=== PATIENT | female | born 1975 | race Caucasian/White ===

== ENCOUNTER 2018-02-06 11:39 | Emergency (ER) | payer SELFPAY ==
[2018-02-06 12:30] LABS: Urine Blood 2+ (NEG); Urine Glucose NEGATIVE (NEG); Urine Protein 2+ (NEG)
[2018-02-06 12:43] LABS: Urine Bacteria >50 /HPF (<20); Urine Culture Reflex Order REFLEXED; Urine RBC <5 /HPF (NONE SEEN)
[2018-02-06] MEDS ORDERED: KETOROLAC 30 MG/ML INJ ONE (13:36)
[2018-02-06] MEDS ORDERED: NITROFURAN MACRO 100 MG CAP PO ONE (13:36)
--- NOTE | 2018-02-06 14:24 | ER ---
Nurse's Notes [facility] Name: Cady Connelly Age: 42 yrs Sex: Female : 1975 Arrival Date: 02/06/2018 Time: 11:43 Bed 26 Private MD: None, None Diagnosis: Urinary tract infection, site not specified Presentation: 02/06 12:01 Presenting complaint: Patient states: Chills, body aches and burning w/ urination since yesterday. Transition of care: patient was not received from another setting of care. Onset of symptoms was February 06, 2018. Risk Assessment: Do you want to hurt yourself or someone else? Patient reports no desire to harm self or others. Care prior to arrival: None. 12:01 Method Of Arrival: Ambulatory 12:01 Acuity: ALEXANDRA 4 13:13 Initial Sepsis Screen: Does the patient meet any 2 criteria? No. Patient's initial ed1 sepsis screen is negative. Does the patient have a suspected source of infection? No. Patient's initial sepsis screen is negative. Triage Assessment: 13:13 General: Appears uncomfortable, Behavior is calm, cooperative. Pain: Complains of pain ed1 in abdomen Pain currently is 6 out of 10 on a pain scale. Quality of pain is described as sharp. 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 - Social history:: Smoking status: unknown. - Ebola Screening: : Patient negative for fever greater than or equal to 101.5 degrees Fahrenheit, and additional compatible Ebola Virus Disease symptoms Patient denies exposure to infectious person Patient denies travel to an Ebola-affected area in the 21 days before illness onset No symptoms or risks identified at this time. Screenin:01 Abuse screen: Denies threats or abuse. Denies injuries from another. Nutritional ed1 screening: No deficits noted. Tuberculosis screening: No symptoms or risk factors identified. Fall Risk None identified. Assessment: 14:03 Reassessment: Patient appears in no apparent distress at this time. No changes from previously documented assessment. Patient and/or family updated on plan of care and expected duration. Pain level reassessed. Patient is alert, oriented x 3, equal unlabored respirations, skin warm/dry/pink. Patient states symptoms have not improved. Vital Signs: 12:02 BP 159 / 95; Pulse 100; Resp 22; Temp 99.0(O); Pulse Ox 99% on R/A; Weight 95.25 kg; ph Height 5 ft. 4 in. (162.56 cm); 14:03 BP 146 / 88; Pulse 98; Resp 18; Temp 100.4(O); Pulse Ox 97% on R/A; Pain 6/10; ph 12:02 Body Mass Index 36.05 (95.25 kg, 162.56 cm) ph ED Course: 11:43 Patient arrived in ED. sb2 11:44 None, None is Private Physician. sb2 12:02 Triage completed. ph 12:03 Arm band placed on Patient placed in waiting room, Patient notified of wait time. Urine ph obtained. 13:13 [facility] Moody [facility]-C [facility] kb 13:13 Joaquin Villafuerte MD is Attending Physician. kb 13:13 Patient has correct armband on for positive identification. Bed in low position. Call ed1 light in reach. Side rails up X 1. Pulse ox on. NIBP on. Door closed. Lights dimmed. 13:24 Vickie Ball LVN is Primary Nurse. ed1 13:30 Flu Sent. ed1 13:30 Urine Microscopic Only Sent. ed1 13:30 Urine Culture Sent. ed1 14:05 Urine --Ancillary (enter results) Sent. ph 14:05 Urine Dipstick--Ancillary (enter results) Sent. ph 14:52 No provider procedures requiring assistance completed. Patient did not have IV access ed1 during this emergency room visit. Administered Medications: 13:34 Drug: TORadol 60 mg Route: IM; Site: left gluteus; ed1 14:05 Follow up: Response: No adverse reaction; Pain is decreased ph 13:34 Drug: Macrobid 100 mg Route: PO; ed1 14:05 Follow up: Response: No adverse reaction ph 14:50 Drug: Tylenol 650 mg Route: PO; kr2 14:51 Follow up: Response: Medication administered at discharge. kr2 Outcome: 14:24 Discharge ordered by . kb 14:52 Discharged to home ambulatory. kr2 14:52 Condition: good 14:52 Discharge instructions given to patient, Instructed on discharge instructions, follow up and referral plans. medication usage, Demonstrated understanding of instructions, follow-up care, medications, Prescriptions given X 2. 14:53 Patient left the ED. kr2 Addendum: 02/09/2018 08:34 Addendum: Culture Results: Positive urine culture. No further action required. Bacteria i w sensitive to prescribed antibiotic. Signatures: Madiha Moody, CARPENTER [employer]LE [employer]LLY-C [employer]PENTER [employer]LLY-Ckb Shanon Mcdowell, RN RN Vickie Ball LVN CUT OFF MACHINE HELPER ed1 Grecia Mcintosh RN RN Nimisha Irving RN RN kr2 Suzie Newell sb2
--- NOTE | 2018-02-06 14:24 | EDPHYS ---
Physician Documentation [facility] Name: Cady Connelly Age: 42 yrs Sex: Female : 1975 Arrival Date: 02/06/2018 Time: 11:43 Bed 26 Private MD: None, None ED Physician Joaquin Villafuerte HPI: 02/06 13:35 This 42 yrs old Female presents to ER via Ambulatory with complaints of Flu kb Symptoms, Urinary Problem. 13:35 The patient presents with urinary symptoms, dysuria, frequency. Onset: The kb symptoms/episode began/occurred yesterday. Modifying factors: The symptoms are alleviated by nothing, the symptoms are aggravated by nothing. Associated signs and symptoms: Pertinent positives: dysuria, urinary frequency, chills, bodyaches. Severity of symptoms: At their worst the symptoms were moderate, in the emergency department the symptoms are unchanged. The patient has experienced similar episodes in the past, a few times. The patient has not recently seen a physician. 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 - Social history:: Smoking status: unknown. - Ebola Screening: : Patient negative for fever greater than or equal to 101.5 degrees Fahrenheit, and additional compatible Ebola Virus Disease symptoms Patient denies exposure to infectious person Patient denies travel to an Ebola-affected area in the 21 days before illness onset No symptoms or risks identified at this time. ROS: 13:33 ENT: Negative for injury, pain, and discharge, Neck: Negative for injury, pain, and kb swelling, Cardiovascular: Negative for chest pain, palpitations, and edema, Respiratory: Negative for shortness of breath, cough, wheezing, and pleuritic chest pain, Abdomen/GI: Negative for abdominal pain, nausea, vomiting, diarrhea, and constipation, MS/Extremity: Negative for injury and deformity, Skin: Negative for injury, rash, and discoloration, Neuro: Negative for headache, weakness, numbness, tingling, and seizure. 13:33 Constitutional: Positive for body aches, chills, fatigue, malaise, Negative for fever, poor PO intake, weight loss. 13:33 : Positive for urinary symptoms, urinary frequency, burning with urination. Exam: 13:32 Head/Face: Normocephalic, atraumatic. ENT: Nares patent. No nasal discharge, no kb septal abnormalities noted. Tympanic membranes are normal and external auditory canals are clear. Oropharynx with no redness, swelling, or masses, exudates, or evidence of obstruction, uvula midline. Mucous membranes moist. Neck: Trachea midline, no thyromegaly or masses palpated, and no cervical lymphadenopathy. Supple, full range of motion without nuchal rigidity, or vertebral point tenderness. No Meningismus. Chest/axilla: Normal chest wall appearance and motion. Nontender with no deformity. No lesions are appreciated. Cardiovascular: Regular rate and rhythm with a normal S1 and S2. No gallops, murmurs, or rubs. Normal PMI, no JVD. No pulse deficits. Respiratory: Lungs have equal breath sounds bilaterally, clear to auscultation and percussion. No rales, rhonchi or wheezes noted. No increased work of breathing, no retractions or nasal flaring. Abdomen/GI: Soft, non-tender, with normal bowel sounds. No distension or tympany. No guarding or rebound. No evidence of tenderness throughout. Skin: Warm, dry with normal turgor. Normal color with no rashes, no lesions, and no evidence of cellulitis. MS/ Extremity: Pulses equal, no cyanosis. Neurovascular intact. Full, normal range of motion. Neuro: Awake and alert, GCS 15, oriented to person, place, time, and situation. Cranial nerves II-XII grossly intact. Motor strength 5/5 in all extremities. Sensory grossly intact. Cerebellar exam normal. Normal gait. 13:32 Constitutional: The patient appears alert, awake, uncomfortable. Vital Signs: 12:02 BP 159 / 95; Pulse 100; Resp 22; Temp 99.0(O); Pulse Ox 99% on R/A; Weight 95.25 kg; ph Height 5 ft. 4 in. (162.56 cm); 14:03 BP 146 / 88; Pulse 98; Resp 18; Temp 100.4(O); Pulse Ox 97% on R/A; Pain 6/10; ph 12:02 Body Mass Index 36.05 (95.25 kg, 162.56 cm) ph MDM: 13:14 Patient medically screened. kb 13:32 Data reviewed: vital signs, nurses notes. Data interpreted: Pulse oximetry: on room air kb is 99 %. Interpretation: normal. 13:35 Counseling: I had a detailed discussion with the patient and/or guardian regarding: the kb historical points, exam findings, and any diagnostic results supporting the discharge/admit diagnosis, lab results, the need for outpatient follow up, a family practitioner, to return to the emergency department if symptoms worsen or persist or if there are any questions or concerns that arise at home. 02/06 11:51 Order name: Flu ph 02/06 12:12 Order name: Urine Culture [facility] 02/06 12:12 Order name: Urine Microscopic Only [facility] 02/06 12:13 Order name: Urine Dipstick--Ancillary (enter results) [facility] 02/06 12:13 Order name: Urine --Ancillary (enter results) [facility] 02/06 12:30 Order name: Urine --Ancillary; Complete Time: 13:14 [facility] 02/06 12:07 Order name: Urine Dipstick-Ancillary (obtain specimen); Complete Time: 12:12 kb 02/06 12:12 Order name: Urine Test (obtain specimen); Complete Time: 12:12 [facility] 02/06 12:30 Order name: Urine Dipstick-Ancillary; Complete Time: 13:14 [facility] 02/06 12:44 Order name: Urine Microscopic Only; Complete Time: 13:14 [facility] 02/06 12:45 Order name: Influenza Screen (A ; Complete Time: 13:14 [facility] 02/06 12:12 Order name: Urine Dipstick-Ancillary (obtain specimen); Complete Time: 12:12 [facility] 02/06 13:37 Order name: Vital Signs; Complete Time: 14:05 kb Administered Medications: 13:34 Drug: TORadol 60 mg Route: IM; Site: left gluteus; ed1 14:05 Follow up: Response: No adverse reaction; Pain is decreased ph 13:34 Drug: Macrobid 100 mg Route: PO; ed1 14:05 Follow up: Response: No adverse reaction ph 14:50 Drug: Tylenol 650 mg Route: PO; kr2 14:51 Follow up: Response: Medication administered at discharge. kr2 Disposition: 02/06/18 14:24 Discharged to Home. Impression: Urinary tract infection, site not specified. - Condition is Stable. - Discharge Instructions: Urinary Tract Infection, Adult, [id number]. - Prescriptions for Pyridium 200 mg Oral Tablet - take 1 tablet by ORAL route every 8 hours for 3 days; 9 tablet. Macrobid 100 mg Oral Capsule - take 1 capsule by ORAL route every 12 hours for 10 days; 20 capsule. - Medication Reconciliation Form, Thank You Letter, Antibiotic Education, Prescription Opioid Use form. - Follow up: Emergency Department; When: As needed; Reason: Worsening of condition. Follow up: Private Physician; When: 2 - 3 days; Reason: Recheck today's complaints, Continuance of care, Re-evaluation by your physician. Addendum: 02/08/2018 09:09 Co-signature as Attending Physician, Joaquin Villafuerte MD I agree with the assessment and k dr plan of care. Signatures: Dispatcher [employer] EDMS Madiha Moody, LEAD CAREGIVER-C LEAD CAREGIVER-Ckb Bella Grady, RN RN aj1 Joaquin Villafuerte MD MD [facility] Vickie Ball LVN PAYMENT POSTER ed1 Grecia Mcintosh RN RN Nimisha Irving RN RN kr2 Corrections: (The following items were deleted from the chart) 02/06 14:53 14:24 02/06/2018 14:24 Discharged to Home. Impression: Urinary tract infection, site kr2 not specified. Condition is Stable. Forms are Medication Reconciliation Form, Thank You Letter, Antibiotic Education, Prescription Opioid Use. Follow up: Emergency Department; When: As needed; Reason: Worsening of condition. Follow up: Private Physician; When: 2 - 3 days; Reason: Recheck today's complaints, Continuance of care, Re-evaluation by your physician. kb
[2018-02-06] MEDS ORDERED: ACETAMINOPHEN 325 MG TABLET ONE (14:54)
[2018-02-06 15:01] VITALS: BP 146/88; TEMP 100.4; O2SAT 97
== END 2018-02-06 14:53 | disposition home or self-care (01) ==
LOC: ER 11:39
DX: N39.0 Urinary tract infection, site not specified (principal); I10 Essential (primary) hypertension
CPT/HCPCS: 81003; 81015; 81025; 87077; 87086; 87088; 87186; 87804; 96372; 99284

== ENCOUNTER 2022-05-25 13:45 | Emergency (ER) | payer SELFPAY ==
--- OUTSIDE RECORDS SUMMARY | 2022-05-25 13:48 | XMS REPORT | Continuity of Care Document ---
:1975 Author Organization [facility] t Address [address] [facility] [address] [place] [address] Care Team Providers Name Role Phone Pcp, Patient Does Not Have A Primary Care Physician [id number] NEO BLAND Attending Clinician Unavailable Neo Bland DO Attending Clinician Doctor Unassigned, [place] Attending Clinician Unavailable Problems Condition Condition Condition Status Onset Resolution Last Treating Co mments Source Name Details Category Date Date Treatment Clinician Date Pyelonephr Pyelonephr Disease Active 2017-03 U nivers itis itis 2-18 ity of 00:00: [address] Obesity Obesity Disease Active 2017-03 Univers (BMI (BMI 2-18 ity of 30-39.9) 30-39.9) 00:00: [address] Sepsis Sepsis Disease Active 2017-03 Univers 2-18 ity of 00:00: [address] Kidney Kidney Disease Active 2014-03 Univers stone stone 1-24 ity of 00:00: [address] Allergies, Adverse Reactions, Alerts Allergy Allergy Status Severity Reaction(s) Onset Inactive Treating Comm ents Source Name Type Date Date Clinician HONEYDEW DRUG Active Low Swelling 2017-03 Univer s INGREDI 2-19 ity of 00:00: [place] 00 [facility] RASPBERR DRUG Active Low Swelling 2017-03 Univer s Y INGREDI 2-19 ity of 00:00: [address] Honeydew Propensi Active Swelling 2017-03 Univ ers ty to 2-19 ity of adverse 00:00: [place] reaction 00 Medical s Branch Raspberr Propensi Active Swelling 2017-03 Univ ers y ty to 2-19 ity of adverse 00:00: [place] reaction 00 Medical s Branch Social History Social Habit Start Date Stop Date Quantity Comments Source History of Cigarette Smoker Universi ty of tobacco use [facility] Exposure to Not sure University of SARS-CoV-2 [place] [facility] (event) Branch Alcohol intake 2021-01-24 2021-01-24 Current University 00:00:00 00:00:00 non-drinker of [place] Medi johanny alcohol (finding) [place] Tobacco Comment 2018-02-24 2018-02-24 [id number] Universit y of 00:00:00 00:00:00 [facility] Sex Assigned At [birth year] Universit y of 00:00:00 00:00:00 [facility] Smoking Status Start Date Stop Date Source Current every day smoker Univers ity of [facility] Medications Ordered Filled Start Stop Current Ordering Indication Dosage Frequency Signature Comments Components Source Medication Medication Date Date Medication? Clinician (SIG) Name Name metoclopram 2020-03- No 10mg 10 mg, Uni vers guillermo HCl -01-24 Slow IV ity of (REGLAN) 15:00: 14:12 Push, [place] injection 00 :00 ONCE, 1 Medical 10 mg dose, On Branch 01/24/21 at 0900, XENA ondansetron 2020-03 No 4mg 4 mg, Slow Univers (ZOFRAN 03-26 IV Push, ity of (PF)) 15:00: 14:11 ONCE, 1 [place] injection 4 00 :00 dose, On Medi johanny mg Fri01/24/21 at 0900, XENA metoclopram 2020-03 Yes [id number] 10mg Take 1 Univers guillermo HCl 10 -17 tablet by ity of mg tablet 00:00: mouth [place] 00 every 6 Medical (six) Branch hours as needed for Nausea and Vomiting (N/V) (headache) . permethrin 2019-03 Yes [id number] Apply U nivers 5 % cream 1-15 cream from ity of 00:00: head to [place] 00 toe, Medical including Branch soles of feet. Leave on for 12 hours, then rinse hydrOXYzine 2019-03 Yes [id number] 50mg Take 1 Univers (VISTARIL) 1-15 capsule by ity of 50 mg 00:00: mouth 3 [place] capsule 00 (three) Medical times Branch daily as needed for Itching. permethrin 2019-03 Yes [id number] Apply U nivers 5 % cream 1-15 cream from ity of 00:00: head to [place] 00 toe, Medical including Branch soles of feet. Leave on for 12 hours, then rinse hydrOXYzine 2019-03 Yes [id number] 50mg Take 1 Univers (VISTARIL) 1-15 capsule by ity of 50 mg 00:00: mouth 3 [place] capsule 00 (three) Medical times Branch daily as needed for Itching. lisinopril 2017-03 Yes 10mg Take 10 mg U nivers 10 mg 2-20 by mouth ity of tablet 14:31: daily. [address] lisinopril 2017-03 Yes 10mg Take 10 mg U nivers 10 mg 2-20 by mouth ity of tablet 14:31: daily. [address] ciprofloxac 2017-03 Yes 500mg Take 1 Uni vers in HCl 500 2-20 tablet by ity of mg tablet 00:00: mouth [place] 00 every 12 Medical (twelve) Branch hours. ciprofloxac 2017-03 Yes 500mg Take 1 Uni vers in HCl 500 2-20 tablet by ity of mg tablet 00:00: mouth [place] 00 every 12 Medical (twelve) Branch hours. acetaminoph 2014-03 Yes 1{tbl} Take 1-2 Univers en-codeine 1-25 Tabs by ity of (TYLENOL 00:00: mouth [place] #3) 300-30 00 every 6 Medica l mg tablet (six) Branch hours as needed for Pain (scale 1-3), Pain (scale 4-6) or Pain (scale 7-10). acetaminoph 2014-03 Yes 1{tbl} Take 1-2 Univers en-codeine 1-25 Tabs by ity of (TYLENOL 00:00: mouth [place] #3) 300-30 00 every 6 Medica l mg tablet (six) Branch hours as needed for Pain (scale 1-3), Pain (scale 4-6) or Pain (scale 7-10). Vital Signs Vital Name Observation Time Observation Value Comments Source Systolic blood 2021-01-24 15:00:00 166 mm[Hg] Univer sity of pressure [facility] Diastolic blood 2021-01-24 15:00:00 98 mm[Hg[facility] Heart rate 2021-01-24 15:00:00 87 /min [facility] Respiratory rate 2021-01-24 15:00:00 20 /min [facility] Oxygen saturation in 2021-01-24 15:00:00 96 /min [facility] Arterial blood by [facility] Pulse oximetry Branch Body temperature 2021-01-24 13:52:00 36.78 [place] [facility] Body weight 2021-01-24 13:52:00 108.863 kg [facility] BMI 2021-01-24 13:52:00 41.20 kg/m2 [facility] Procedures Procedure Date / Time Performed Performing Clinician Sour e COMP. METABOLIC PANEL 2021-01-24 14:02:00 [facility] ([id number] CBC WITH DIFF 2021-01-24 14:02:00 [place] [facility] URINALYSIS 2021-01-24 14:02:00 [place] [facility] o [facility] RAPID INFLUENZA A/B 2021-01-24 14:02:00 Neo Bland [facility] COVID-19 (ID NOW RAPID 2021-01-24 14:02:00 Neo Bland [facility] TESTING) [facility] NOTICE OF PRIVACY 2021-01-24 13:45:00 Doctor Unassigned, No [facility] PRACTICES Name [facility] CONSENT/REFUSAL FOR 2021-01-24 13:44:43 Doctor Unassigned, No [facility] AND Name [facility] TREATMENT Encounters Start End Encounter Admission Attending Care Care Encounter Source Date/Time Date/Time Type Type Clinicians Facility Department ID 2022-05-11 2022-05-11 Outpatient [facility] RAFAELA [id number] Db 09:28:57 09:28:57 [id number] Tammy Panchito 2022-05-09 2022-05-09 Outpatient RAFAELA [facility] [id number] Db 16:52:49 16:52:49 0302 Panchito 2022-02-07 2022-02-07 Outpatient SFA SFA [id number] Db 15:35:53 15:35:53 1201 F Panchito 2021-01-24 2021-01-24 Emergency X [facility] ERT [id number] Univers 07:53:00 09:32:00 NEO itjo of [facility] 2021-01-24 2021-01-24 Emergency [facility] [id number] Univers 07:53:00 09:32:00 Neo MILLIGAN [id number] i ty of [place] [id number] [place] [id number] [facility] 084 Branch 2021-01-24 2021-01-24 Orders Doctor SKYLER [id number] Univers 00:00:00 00:00:00 Only Unassigned, ANDREAS [id number] ity of [place] [facility] [id number] Remi [id number] [facility] 009 Branch 2020-01-23 2020-01-23 Emergency X [facility] ERT [id number] Univers 20:00:00 20:00:00 [facility] Results Test Description Test Time Test Comments Results Result Comments Source LIPID PANEL 2022-05-13 00:13:10 Test Item Value Reference Range Interpretation Comme nts CHOLESTEROL (test code = 2210) 170 MG/DL <200 TRIGLYCERIDES (test code = 2232) 342 MG/DL <150 H HDL CHOLESTEROL (test code = 37 MG/DL >39 L 2220) CALC LDL CHOL (test code = 2237) 87 MG/DL <100 NOTE: CALCULATED LDL IS BASED ON ESVERO-CUEVAS METHOD WHICHINCLUDES A DJUSTABLE TRIGLYCERIDE:VL DL CHOLESTEROL RATIO.THIS FACT OR VARIES BY MEASURED TRIGLY CERIDE AND NON-HDLCHOLESTE ROL CONCENTRATIONS WITH INCREASED CALCULATED LDL SEENIN HIGHER T RIGLYCERIDE OR LOWER NON-HDL S PECIMENS. FOR MOREINFORMATION , SEE CLIENT ANNOUNCEMENT AT [email or web address] LDL/HDL (test code = 2.35 RATIO <3.22 2238) COMPREHENSIVE METABOLIC [id number] 00:13:10 Test Item Value Reference Range Interpretation Comments GLUCOSE (test code = 107 MG/DL 70-99 H 2216) BUN (test code = 17 MG/DL 6-20 2207) CREATININE (test 1.26 MG/DL 0.60-1.30 code = 2214) eGFR (2020 CKD-EPI) 53 >60 L The NKF -ASN (test code = 48971) ML/MIN/1.73 Taskforc e recommends use of Cystatin C to confirm eGFR in adults at risk for CKD . [facility] offers eGFR wit h Cystatin C-Creatinineusi ng the 2020 CKD-EPI eGFR_creat-cyst at equation (order code 3057) toincrejack e the accuracy of est imated GFR. For more information, contactyour acc ount executive or se e announcement [email or web address] CALC BUN/CREAT (test 13 RATIO 6-28 code = 2235) SODIUM (test code = 142 MEQ/L 516-101 7922) POTASSIUM (test code 4.7 MEQ/L 3.5-5.4 = 2227) CHLORIDE (test code 103 MEQ/L 95-107 = 221) CARBON DIOXIDE (test 25 MEQ/L 19-31 code = 2206) CALCIUM (test code = 9.9 MG/DL 8.5-10.5 2208) PROTEIN, TOTAL (test 6.6 G/DL 6.1-8.3 code = 2229) ALBUMIN (test code = 4.2 G/DL 3.5-5.2 2200) CALC GLOBULIN (test 2.4 G/DL 1.9-3.7 code = 2240) CALC A/G RATIO (test 1.8 RATIO 1.0-2.6 code = 2234) BILIRUBIN, TOTAL <0.2 MG/DL See_Comment [Automated message] (test code = 2207) The [employer] which generated this result transmitted ref erence range: <=1.2. T he reference range was not used to int erpret this result as normal/abnormal . ALKALINE PHOSPHATASE 96 U/L 40-120 (test code = 2204) AST (test code = 20 U/L 9-40 2217) ALT (test code = 20 U/L 5-40 CPL pfeiffer s 2218) important patho logy staff changes effective 05/08. New patholo gy staff will prov guillermo uninterrupted, excellent patie nt care and clinic al consultation. S ee URL: [email or web address] UNLE SS OTHERWISE INDIC ATED, ALL TESTING PER FORMED AT [facility] [employer], [facility]. [address] [place] [address] [facility] DIRECTOR: PIO BURDICK M.D. CLIA NUMBER [id number] CAP ACCREDITATION N O. [id number] HEMOGLOBIN [id number] 04:30:51 Test Item Value Reference Range Interpretation Comments HEMOGLOBIN A1c (test 6.2 % 4.2-5.6 H AMERIC AN DIABETES code = 60265) ASSOCIATION IDELINES FOR HGB A1C: PREDIABETES/INC REASED RISK . . . . . . . 5.7 -6.4% DIAGNOSIS OF DI ABETES . . . . . . . . . >=6 .5% WITH CONFIRMATION OR APPROPRIATE SYMPTOMS NOTE: ASSAY MAY BE AFFECTED BY HEMOGLOBINOPATH IES (SICKLE CELL ANEMIA, S- C DISEASE, OTHERS) OR AMALIA FICIALLY LOWERED BY DECR EASED RED CELL SURVIVAL ( HEMOLYTIC ANEMIAS, BLOOD LOSS, ETC.). CONSIDER ALTERN ATE TESTING OR LABORATORY C ONSULTATION. VAGINAL PATHOGENS DNA [id number] 14:33:43 Test Item Value Reference Range Interpretation Comments REINA SPECIES (test NEGATIVE NEGATIVE code = ) G. VAGINALIS (test POSITIVE NEGATIVE A code = ) T. VAGINALIS (test NEGATIVE NEGATIVE UNLESS O THERWISE code = ) INDICATED, ALL TESTING PERFORMED [facility] [address] [place], [place] [address] LABORATORY DIRE CTOR: PIO BOB M.D. CLIA NUMBER [id number] [place]. [id number] COMPREHENSIVE METABOLIC [id number] 05:48:51 Test Item Value Reference Range Interpretation Comments GLUCOSE (test code = 139 MG/DL 70-99 H 2216) BUN (test code = 17 MG/DL 6-20 2207) CREATININE (test 1.09 MG/DL 0.60-1.30 code = 2214) eGFR (2020 CKD-EPI) 63 >60 (test code = 45181) ML/MIN/1.73 CALC BUN/CREAT (test 16 RATIO 6-28 code = 2235) SODIUM (test code = 140 MEQ/L 361-875 0788) POTASSIUM (test code 4.2 MEQ/L 3.5-5.4 = 2228) CHLORIDE (test code 104 MEQ/L 95-107 = 2215) CARBON DIOXIDE (test 24 MEQ/L 19-31 code = 2206) CALCIUM (test code = 9.6 MG/DL 8.5-10.5 2208) PROTEIN, TOTAL (test 7.2 G/DL 6.1-8.3 code = 222) ALBUMIN (test code = 4.4 G/DL 3.5-5.2 2200) CALC GLOBULIN (test 2.8 G/DL 1.9-3.7 code = 2240) CALC A/G RATIO (test 1.6 RATIO 1.0-2.6 code = 2234) BILIRUBIN, TOTAL <0.2 MG/DL See_Comment [Automated message] (test code = 220) The [employer] which generated this result transmitted ref erence range: <=1.2. T he reference range was not used to int erpret this result as normal/abnormal . ALKALINE PHOSPHATASE 112 U/L 40-118 (test code = 220) AST (test code = 19 U/L 9-40 2217) ALT (test code = 23 U/L 5-40 UNLESS OTH ERWISE 2218) INDICATED, ALL TESTING PERFORM ED ATCLINICAL PATH OLOGY LABORATORIES, [facility]. [address] [place], [place] [id number] [place] [address] DIRECTOR: PIO BURDICK M.D. CLIA NUMBER [id number] CAP ACCREDITATION N O. [id number] LIPID [id number] 05:48:51 Test Item Value Reference Range Interpretation Comments CHOLESTEROL (test 298 MG/DL <200 H code = 2210) TRIGLYCERIDES (test 541 MG/DL <150 H code = 2232) HDL CHOLESTEROL 36 MG/DL >39 L (test code = 2220) CALC LDL CHOL (test (NOTE) MG/DL <100 UNABLE T O CALCULATE A code = 2237) VALID LDL RYLIE STEROL WHEN THE TRIGLYCERIDEVAL UE IS GREATER THAN 40 0 MG/DL.UNABLE TO CALCULATE A ALEK ID LDL CHOLESTEROL WHE N THE TRIGLYCERIDEVAL UE IS GREATER THAN 40 0 MG/DL. NOTE: CALCULATE D LDL IS BASED ON SEVERO -CUEVAS METHOD WHICHINC LUDES ADJUSTABLE TRIGLYCERIDE:VL DL CHOLESTEROL RAT IO.THIS FACTOR VARIES B Y MEASURED TRIGLY CERIDE AND NON-HDLCHOL ESTEROL CONCENTRATIONS WITH INCREASED CALCU LATED LDL SEENIN HIGH ER TRIGLYCERIDE OR LOWER NON-HDL SPECIME NS. FOR MOREINFORMATION , SEE CLIENT ANNOUNCE MENT AT [email or web address] RISK RATIO LDL/HDL (NOTE) RATIO <3.22 UNABLE T O CALCULATE (test code = 2238) HEMOGLOBIN [id number] 03:38:25 Test Item Value Reference Range Interpretation Comments HEMOGLOBIN A1c (test 6.5 % 4.2-5.6 H AMERIC AN DIABETES code = 77518) ASSOCIATION IDELINES FOR HGB A1C: PREDIABETES/INC REASED RISK . . . . . . . 5.7 -6.4% DIAGNOSIS OF DI ABETES . . . . . . . . . >=6 .5% WITH CONFIRMATION OR APPROPRIATE SYMPTOMS NOTE: ASSAY MAY BE AFFECTED BY HEMOGLOBINOPATH IES (SICKLE CELL ANEMIA, S- C DISEASE, OTHERS) OR AMALIA FICIALLY LOWERED BY DECR EASED RED CELL SURVIVAL ( HEMOLYTIC ANEMIAS, BLOOD LOSS, ETC.). CONSIDER ALTERN ATE TESTING OR LABORATORY C ONSULTATION. TSH, THIRD [id number] 06:59:53 Test Item Value Reference Range Interpretation Comments TSH, THIRD 0.728 UIU/ML 0.400-4.100 UNLESS OTHERWI SE GENERATION (test INDICATED, ALL TESTING code = 2821) PERFORMED [facility], [id number] [place] [address] DIRECTOR: PIO BURDICK M.D. CLIA NUMBER [id number] CAP ACCREDITATION N O. [id number] LIPID [id number] 05:57:50 Test Item Value Reference Range Interpretation Comments CHOLESTEROL (test 265 MG/DL <200 H code = 2210) TRIGLYCERIDES (test 386 MG/DL <150 H code = 2232) HDL CHOLESTEROL (test 50 MG/DL >39 code = 2220) CALC LDL CHOL (test 156 MG/DL <100 H NOTE: C ALCULATED LDL code = 2237) IS BASED ON SEVERO-CUEVAS METHOD WHICHINCLUDES ADJUSTABLE TRIGLYCERIDE:VL DL CHOLESTEROL RAT IO.THIS FACTOR VARIES B Y MEASURED TRIGLY CERIDE AND NON-HDLCHOL ESTEROL CONCENTRATIONS WITH INCREASED CALCU LATED LDL SEENIN HIGH ER TRIGLYCERIDE OR LOWER NON-HDL SPECIME NS. FOR MOREINFORMATION , SEE CLIENT ANNOUNCE MENT AT [email or web address] [email or web address] RATIO LDL/HDL 3.12 RATIO <3.22 (test code = 2238) COMPREHENSIVE METABOLIC [id number] 05:57:50 Test Item Value Reference Range Interpretation Comments GLUCOSE (test code = 85 MG/DL 70-99 2216) BUN (test code = 15 MG/DL 6-20 2207) CREATININE (test 0.92 MG/DL 0.60-1.30 code = 2214) eGFR (2020 CKD-EPI) 78 ML/MIN/1.73 >60 (test code = 92666) CALC BUN/CREAT (test 16 RATIO 6-28 code = 2235) SODIUM (test code = 142 MEQ/L 073-072 2891) POTASSIUM (test code 4.7 MEQ/L 3.5-5.4 = 2227) CHLORIDE (test code 103 MEQ/L 95-107 = 2215) CARBON DIOXIDE (test 26 MEQ/L 19-31 code = 2206) CALCIUM (test code = 9.7 MG/DL 8.5-10.5 2208) PROTEIN, TOTAL (test 7.3 G/DL 6.1-8.3 code = 2229) ALBUMIN (test code = 4.3 G/DL 3.5-5.2 2200) CALC GLOBULIN (test 3.0 G/DL 1.9-3.7 code = 2240) CALC A/G RATIO (test 1.4 RATIO 1.0-2.6 code = 2234) BILIRUBIN, TOTAL 0.2 MG/DL See_Comment [Automated message] (test code = 2207) The syste m which generated this result transmit patsy reference range : <=1.2. The refe rence range was not u sed to interpret th is result as normal/abnormal . ALKALINE PHOSPHATASE 119 U/L 40-118 H (test code = 2204) AST (test code = 17 U/L 9-40 2217) ALT (test code = 21 U/L 5-40 2218) HEMOGLOBIN [id number] 05:42:46 Test Item Value Reference Range Interpretation Comments HEMOGLOBIN A1c (test code = 78770) 6.4 % 4.2-5.6 H CBC W/AUTO DIFF WITH [id number] 04:28:23 Test Item Value Reference Range Interpretation Comments WBC (test code = 9.8 K/UL 3.5-11.0 1001) RBC (test code = 4.54 M/UL 3.80-5.40 1002) HEMOGLOBIN (test code 14.4 G/DL 11.5-15.5 = 1003) HEMATOCRIT (test code 41.4 % 34.0-45.0 = 1004) MCV (test code = 91.2 fL 80.0-99.0 1005) MCH (test code = 31.7 PG 25.0-33.0 1006) MCHC (test code = 34.8 G/DL 31.0-36.0 1007) RDW (test code = 13.7 % 11.5-15.0 1038) NEUTROPHILS (test 60.3 % code = 1008) LYMPHOCYTES (test 28.8 % code = 1010) MONOCYTES (test code 7.2 % = 1011) EOSINOPHILS (test 2.9 % code = 1012) BASOPHILS (test code 0.6 % = 1013) IMMATURE GRANYLOCYTES 0.2 % (test code = 1036) NUCLEATED RBCS (test 0.0 /100 WBC'S See_Comment [Aut omated code = 1065) message] The sy stem which generated this result transmitted reference range : 0.0. The refere nce range was not u sed to interpret th is result as normal/abnormal . PLATELET COUNT (test 324 K/UL 130-400 code = 1015) ABSOLUTE NEUTROPHILS 5.90 K/UL 1.50-7.50 (test code = 1066) ABSOLUTE LYMPHOCYTES 2.82 K/UL 1.00-4.00 (test code = 1067) ABSOLUTE MONOCYTES 0.70 K/UL 0.20-1.00 (test code = 1068) ABSOLUTE EOSINOPHILS 0.28 K/UL 0.00-0.50 (test code = 1040) ABSOLUTE BASOPHILS 0.06 K/UL 0.00-0.20 (test code = 1069) ABS IMMATURE 0.02 K/UL 0.00-0.10 GRANULOCYTES (test code = 1020) ABS NUCLEATED RBCS 0.00 K/UL 0.00-0.11 (test code = 20689) COMP. METABOLIC PANEL (59419)2021-01-24 14:36:50 Test Item Value Reference Range Interpretation Comments NA (test code = 138 mmol/L 135-145 2579707148) K (test code = 4.1 mmol/L 3.5-5.0 4257880251) CL (test code = 104 mmol/L 98-108 9688451793) CO2 TOTAL (test code = 26 mmol/L 23-31 8513088214) AGAP (test code = 2-16 6347469339) BUN (test code = 16 mg/dL 7-23 4270830240) GLUCOSE (test code = 115 mg/dL 70-110 H 5931124096) CREATININE (test code = 0.87 mg/dL 0.50-1.04 3151523622) TOTAL BILI (test code = 0.4 mg/dL 0.1-1.2 7861582338) CALCIUM (test code = 9.9 mg/dL 8.6-10.6 7009092615) T PROTEIN (test code = 7.0 g/dL 6.3-8.2 2327159704) ALBUMIN (test code = 4.2 g/dL 3.5-5.0 7191088586) ALK PHOS (test code = 110 U/L 34-122 7790608130) ALTv (test code = 26 U/L 5-35 1742-6) AST(SGOT) (test code = 32 U/L 13-40 4868831113) eGFR (test code = mL/min/1.73m2 9633577339) JAMAL (test code = JAMAL) Association of Glomerular Filtration Rate (GFR) and Staging of Kidney Disease* + --+ --+ ------+| GFR (mL/min/1.73 m2) ?| With Kidney Damage ?| ?Without Kidney Damage+ --------+ --------+ +| ?>90 ?| ?Stage one ?| ? Normal ?+ ---+ ---+ -------+| ?60-89 ?| ?Stage two ?| ? Decreased GFR ? + --+ --+ ------+| ?30-59 ?| ?Stage three ?| ? Stage three ? + --+ --+ ------+| ?15-29 ?| ?Stage four ? | ? Stage four ?+ ---+ ---+ -------+| ?<15 (or dialysis) ? ?| ?Stage five ? | ? Stage five ?+ ---+ ---+ -------+ *Each stage assumes the associated GFR level has been in effect for at least three months. ?Stages 1 to 5, with or without kidney disease, indicate chronic kidney disease. Notes: Determination of stages one and two (with eGFR >59mL/min/1.73 m2) requires estimation of kidney damage for at least three months as defined by structural or functional abnormalities of the kidney, manifested by either:Pathological abnormalities or Markers of kidney damage (including abnormalities in the composition of the blood or urine or abnormalities in imaging tests). Lab Interpretation Abnormal (test code = 59251-7) [facility] WITH [id number] 14:26:50 Test Item Value Reference Range Interpretation Comments WBC (test code = See_Comment [Automated 8390-2) message] The sy stem which generated this result transmitted reference range : 4.30 - 11.10 10*3/?L. The reference range was not used to interpret this result as normal/abnormal . RBC (test code = See_Comment [Automated 169-8) message] The sy stem which generated this result transmitted reference range : 3.93 - 5.25 10*6/?L. The reference range was not used to interpret this result as normal/abnormal . HGB (test code = 13.5 g/dL 11.6-15.0 718-7) HCT (test code = 39.6 % 35.7-45.2 4544-3) MCV (test code = 92.5 fL 80.6-95.5 787-2) MCH (test code = 31.5 pg 25.9-32.8 785-6) MCHC (test code = 34.1 g/dL 31.6-35.1 786-4) RDW-SD (test code = 42.4 fL 39.0-49.9 48984-7) RDW-CV (test code = 12.4 % 12.0-15.5 788-0) PLT (test code = See_Comment [Automated 777-3) message] The sy stem which generated this result transmitted reference range : 166 - 358 10*3/ ?L. The reference r vick was not used to interpret this result as normal/abnormal . MPV (test code = 11.5 fL 9.5-12.9 76804-6) NRBC/100 WBC (test See_Comment [Automat ed code = 9382269226) message] The system which generated this result transmitted reference range : 0.0 - 10.0 /100 WBCs. The refer ence range was not u sed to interpret th is result as normal/abnormal . NRBC x10^3 (test code <0.01 See_Comment [Auto mated = 9632053551) message] The s ystem which generated this result transmitted reference range : 10*3/?L. The reference range was not used to interpret this result as normal/abnormal . GRAN MAT (NEUT) % 54.3 % (test code = 770-8) IMM GRAN % (test code 0.40 % = 0025308019) LYMPH % (test code = 34.6 % 736-9) MONO % (test code = 6.6 % 5905-5) EOS % (test code = 3.4 % 713-8) BASO % (test code = 0.7 % 706-2) GRAN MAT x10^3(ANC) 5.76 10*3/uL 1.88-7.09 (test code = 2396701671) IMM GRAN x10^3 (test 0.04 10*3/uL 0.00-0.06 code = 6657415460) LYMPH x10^3 (test code 3.66 10*3/uL 1.32-3.29 H = 731-0) MONO x10^3 (test code 0.70 10*3/uL 0.33-0.92 = 742-7) EOS x10^3 (test code = 0.36 10*3/uL 0.03-0.39 711-2) BASO x10^3 (test code 0.07 10*3/uL 0.01-0.07 = 704-7) Lab Interpretation Abnormal (test code = 79030-0) [facility]"
[2022-05-25] MEDS ORDERED: IBUPROFEN 200 MG TAB PO ONE (14:30)
--- NOTE | 2022-05-25 14:40 | RAD REPORT ---
EXAM DESCRIPTION: CT - Head Brain Wo Cont - 05/25/2022 2:30 pm CLINICAL HISTORY: Head injury. Headache COMPARISON: 2016 TECHNIQUE: Computed axial tomography of the head was obtained. IV contrast was not requested. All CT scans are performed using dose optimization technique as appropriate and may include automated exposure control or mA/KV adjustment according to patient size. FINDINGS: An intracranial bleed is not seen The ventricles are normal in caliber No significant hypodense areas within the brain visualized No extra-axial fluid collection is noted. Fluid within the sinuses/ mastoids is not seen IMPRESSION: No acute intracranial abnormality is seen If patient's symptoms persist MRI of the brain would be recommended
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
[2022-05-25 15:33] VITALS: TEMP 98.8; O2SAT 100
[2022-05-25 15:34] VITALS: BP 141/82
== END 2022-05-25 14:59 | disposition home or self-care (01) ==
LOC: ER 13:45
DX: S06.0X0A Concussion without loss of consciousness, initial encounter (principal); S01.311A Laceration without foreign body of right ear, initial encounter; F17.210 Nicotine dependence, cigarettes, uncomplicated
CPT/HCPCS: 70450; 99283

== ENCOUNTER → 2023-04-25 | Emergency (ER) | payer SELFPAY ==
[~2023-04-25] MED LIST: KETOROLAC 30 MG/ML INJ ONE
--- OUTSIDE RECORDS SUMMARY | 2023-04-25 00:06 | XMS REPORT | Continuity of Care Document ---
Author Name Unknown Address [address] [facility] [address] [place] [address] [facility] thconnect Address [address] [facility]. [address] [place] [address] Care Team Providers Care Ordnance Artificer Helper Name Role Phone Pcp, Patient Does Not Have A Primary Care Physic vicente NEO BLAND Attending Clinician Unavailable Neo Bland DO Attending Clinician [phone] Doctor Unassigned, [place] Attending Clinician U navailable Problems Condition Name Condition Details Condition Category Status Onset Date Resolution Date Last Treatment Date Treating Clinician Comments Source Pyelonephr itis Pyelonephr itis Disease Active 2017-03 00:00: 00 [facility] Obesity (BMI 30-39.9) Obesity (BMI 30-39.9) Disease Active 2017-03 00:00: 00 [facility] Sepsis Sepsis Disease Active 2017-03 00:00: 00 [facility] Kidney stone Kidney stone Disease Active 2014-03 00:00: 00 [facility] Allergies, Adverse Reactions, Alerts Allergy Name Allergy Type Status Severity Reaction(s) Onset Date Inactive Date Treating Clinician Comments Source HONEYDEW DRUG INGREDI Active Low Swelling 2017-03 00:00: 00 [facility] RASPBERR Y DRUG INGREDI Active Low Swelling 2017-03 00:00: 00 [facility] Honeydew Propensi ty to adverse reaction s Active Swelling 2017-03 00:00: 00 [facility] Raspberr y Propensi ty to adverse reaction s Active Swelling 2017-03 00:00: 00 [facility] Social History Social Habit Start Date Stop Date Quantity Comments Source History of tobacco use Cigarette Smoker [facility] Exposure to SARS-CoV-2 (event) Not sure [facility] Alcohol intake 2021-01-24 00:00:00 2021-01-24 00:00:00 Current non-drinker of alcohol (finding) [facility] Tobacco Comment 2018-02-24 00:00:00 2018-02-24 00:00:00 [id number] [facility] Sex Assigned At 1975 00:00:00 1975 00:00:00 [facility] Smoking Status Start Date Stop Date Source Current every day smoker [facility] Medications Ordered Medication Name Filled Medication Name Start Date Stop Date Current Medication? Ordering Clinician Indication Dosage Frequency Signature (SIG) Comments Components Source metoclopram guillermo HCl (REGLAN) injection 10 mg 2020-03 15:00: 00 01-24 14:12 :00 No 10mg 10 mg, Slow IV Push, ONCE, 1 dose, On Fri01/24/21 at 0900, [facility] ondansetron (ZOFRAN (PF)) injection 4 mg 2020-03 15:00: 00 01-24 14:11 :00 No 4mg 4 mg, Slow IV Push, ONCE, 1 dose, On Fri01/24/21 at 0900, [facility] metoclopram guillermo HCl 10 mg tablet 2020-03 00:00: 00 Yes [id number] 10mg Take 1 tablet by mouth every 6 (six) hours as needed for Nausea and Vomiting (N/V) (headache) . [facility] permethrin 5 % cream 2019-03 00:00: 00 Yes [id number] Apply cream from head to toe, including soles of feet. Leave on for 12 hours, then rinse [facility] hydrOXYzine (VISTARIL) 50 mg capsule 2019-03 00:00: 00 Yes [id number] 50mg Take 1 capsule by mouth 3 (three) times daily as needed for Itching. [facility] permethrin 5 % cream 2019-03 00:00: 00 Yes [id number] Apply cream from head to toe, including soles of feet. Leave on for 12 hours, then rinse [facility] hydrOXYzine (VISTARIL) 50 mg capsule 2019-03 00:00: 00 Yes [id number] 50mg Take 1 capsule by mouth 3 (three) times daily as needed for Itching. [facility] lisinopril 10 mg tablet 2017-03 14:31: 05 Yes 10mg Take 10 mg by mouth daily. [facility] lisinopril 10 mg tablet 2017-03 14:31: 05 Yes 10mg Take 10 mg by mouth daily. [facility] ciprofloxac in HCl 500 mg tablet 2017-03 00:00: 00 Yes 500mg Take 1 tablet by mouth every 12 (twelve) hours. [facility] ciprofloxac in HCl 500 mg tablet 2017-03 00:00: 00 Yes 500mg Take 1 tablet by mouth every 12 (twelve) hours. [facility] acetaminoph en-codeine (TYLENOL #3) 300-30 mg tablet 2014-03 00:00: 00 Yes 1{tbl} Take 1-2 Tabs by mouth every 6 (six) hours as needed for Pain (scale 1-3), Pain (scale 4-6) or Pain (scale 7-10). [facility] acetaminoph en-codeine (TYLENOL #3) 300-30 mg tablet 2014-03 00:00: 00 Yes 1{tbl} Take 1-2 Tabs by mouth every 6 (six) hours as needed for Pain (scale 1-3), Pain (scale 4-6) or Pain (scale 7-10). [facility] Vital Signs Vital Name Observation Time Observation Value Comments Tiffani falk Systolic blood pressure 2021-01-24 15:00:00 166 mm[Hg] [facility] Diastolic blood pressure 2021-01-24 15:00:00 98 mm[Hg] [facility] Heart rate 2021-01-24 15:00:00 87 /min [facility] Respiratory rate 2021-01-24 15:00:00 20 /min [facility] Oxygen saturation in Arterial blood by Pulse oximetry 2021-01-24 15:00:00 96 /min [facility] Body temperature 2021-01-24 13:52:00 36.78 [place] [facility] Body weight 2021-01-24 13:52:00 108.863 kg [facility] BMI 2021-01-24 13:52:00 41.20 kg/m2 [facility] Procedures Procedure Date / Time Performed Performing Clinicia n Source COMP. METABOLIC PANEL (66114) 2021-01-24 14:02:00 Neo Bland [facility] CBC WITH DIFF 2021-01-24 14:02:00 Neo Bland [facility] URINALYSIS 2021-01-24 14:02:00 Neo Bland [facility] RAPID INFLUENZA A/B 2021-01-24 14:02:00 Zohra Bland [facility] COVID-19 (ID NOW RAPID TESTING) 2021-01-24 14:02:00 Neo Bland [facility] NOTICE OF PRIVACY PRACTICES 2021-01-24 13:45:00 Doctor Unassigned, [place] [facility] CONSENT/REFUSAL FOR DIAGNOSIS AND TREATMENT 2021-01-24 13:44:43 Doctor Unassigned, [place] [facility] Encounters Start Date/Time End Date/Time Encounter Type Admission Type Attending [facility] Care Facility Care Department Encounter ID Source 2022-07-16 08:00:00 2022-07-16 08:00:00 Outpatient [facility] [id number] Db Munoz Panchito 2022-05-11 09:28:57 2022-05-11 09:28:57 Outpatient [facility] [id number] Db Munoz Panchito 2022-05-09 16:52:49 2022-05-09 16:52:49 Outpatient [facility] [id number] Db Flanagan 2022-02-07 15:35:53 2022-02-07 15:35:53 Outpatient [facility] [id number] Db Flanagan 2021-01-24 07:53:00 2021-01-24 09:32:00 Emergency X NEO BLAND [facility] ERT [id number] [facility] 2021-01-24 07:53:00 2021-01-24 09:32:00 Emergency Neo Bland [facility] [id number] [facility] 2021-01-24 00:00:00 2021-01-24 00:00:00 Orders Only Doctor Unassigned, [place] [facility] [id number] [facility] 2020-01-23 20:00:00 2020-01-23 20:00:00 Emergency X [facility] ERT [id number] [facility] Results Test Description Test Time Test Comments Results Result Co mments Source COMPREHENSIVE METABOLIC [id number] 00:13:10* Test Item Value Reference Range Interpretation Comme nts GLUCOSE (test code = 2217) 107 MG/DL 70-99 H BUN (test code = 2208) 17 MG/DL 6-20 CREATININE (test code = 2214) 1.26 MG/DL 0.60-1.30 eGFR (2020 CKD-EPI) (test code = 03845) 53 ML/MIN/1.73 >60 L The NKF-ASN Taskforc e recommends use of Cystatin C to confirm eGFR inadults at risk for CKD. [facility] offers eGFR with Cystatin C-Creatinineusing the 2020 CKD-EPI eGFR_creat-cystat equation (order code 3057) toincrease the accuracy of estimated GFR. For more information, contactyour account relationship manager or see announcement [email or web address] CALC BUN/CREAT (test code = 2235) 13 RATIO 6-28 SODIUM (test code = 223) 142 MEQ/L 133-146 POTASSIUM (test code = 2228) 4.7 MEQ/L 3.5-5.4 CHLORIDE (test code = 2215) 103 MEQ/L 95-107 CARBON DIOXIDE (test code = 2206) 25 MEQ/L 19-31 CALCIUM (test code = 2209) 9.9 MG/DL 8.5-10.5 PROTEIN, TOTAL (test code = 2228) 6.6 G/DL 6.1-8.3 ALBUMIN (test code = 220) 4.2 G/DL 3.5-5.2 CALC GLOBULIN (test code = 2240) 2.4 G/DL 1.9-3.7 CALC A/G RATIO (test code = 2233) 1.8 RATIO 1.0-2.6 BILIRUBIN, TOTAL (test code = 7) <0.2 MG/DL See_Comment [Automated me ssage] The system which generated this result transmitted reference range: <=1.2. The reference range was not used to interpret this result as normal/abnormal. ALKALINE PHOSPHATASE (test code = 2203) 96 U/L 40-120 AST (test code = 2218) 20 U/L 9-40 ALT (test code = 2219) 20 U/L 5-[address] [facility] has impo rtant pathology staff changes effective 05/08/2022. New pathology staff will provide uninterrupted, excellent patient care and clinical consultation. See URL: [email or web address]. UNLESS OTHERWISE INDICATED, ALL TESTING PERFORMED AT [facility] [address] [place] [address] PROFESSOR OF POLITICAL SCIENCE: PIO BURDICK M.D. CLIA NUMBER [id number] [place] [id number] HEMOGLOBIN [id number] 04:30:51* Test Item Value Reference Range Interpretation Comme nts HEMOGLOBIN A1c (test code = 40889) 6.2 % 4.2-5.6 H [employer]ATION GUIDELINES FOR HGB A1C: PREDIABETES/INCREASED RISK . . . . . . . 5.7-6.4% DIAGNOSIS OF DIABETES . . . . . . . . . >=6.5% WITH CONFIRMATION OR APPROPRIATE SYMPTOMS NOTE: ASSAY MAY BE AFFECTED BY HEMOGLOBINOPATHIES (SICKLE CELL ANEMIA, S-C DISEASE, OTHERS) OR ARTIFICIALLY LOWERED BY DECREASED RED CELL SURVIVAL (HEMOLYTIC ANEMIAS, BLOOD LOSS, ETC.). CONSIDER ALTERNATE TESTING OR LABORATORY CONSULTATION. VAGINAL PATHOGENS DNA [id number] 14:33:43* Test Item Value Reference Range Interpretation Comme nts REINA SPECIES (test code = ) NEGATIVE NEGATIVE G. VAGINALIS (test code = ) POSITIVE NEGATIVE A T. VAGINALIS (test code = ) NEGATIVE NEGATIVE UNLESS OTHERWISE INDICATED, ALL TESTING [facility]FOR[email or web address] [address] [place] [address] PROFESSOR OF POLITICAL SCIENCE: PIO BURDICK M.D. IA NUMBER [id number] [place]. [id number] LIPID [id number] 05:48:51* Test Item Value Reference Range Interpretation Comme nts CHOLESTEROL (test code = 2210) 298 MG/DL <200 H TRIGLYCERIDES (test code = 2232) 541 MG/DL <150 H HDL CHOLESTEROL (test code = 0) 36 MG/DL >39 L CALC LDL CHOL (test code = 7) (NOTE) MG/DL <100 UNABLE TO CALCUL ATE A VALID LDL CHOLESTEROL WHEN THE TRIGLYCERIDEVALUE IS GREATER THAN 400 MG/DL.UNABLE TO CALCULATE A VALID LDL CHOLESTEROL WHEN THE TRIGLYCERIDEVALUE IS GREATER THAN 400 MG/DL. NOTE: CALCULATED LDL IS BASED ON SEVERO-CUEVAS METHOD WHICHINCLUDES ADJUSTABLE TRIGLYCERIDE:VLDL CHOLESTEROL RATIO.THIS FACTOR VARIES BY MEASURED TRIGLYCERIDE AND NON-HDLCHOLESTEROL CONCENTRATIONS WITH INCREASED CALCULATED LDL SEENIN HIGHER TRIGLYCERIDE OR LOWER NON-HDL SPECIMENS. FOR MOREINFORMATION, SEE CLIENT ANNOUNCEMENT AT [email or web address] CalcLDL-C RISK RATIO LDL/HDL (test code = 2238) (NOTE) RATIO <3.22 UNABLE TO ESVIN CULATE COMPREHENSIVE METABOLIC [id number] 05:48:51* Test Item Value Reference Range Interpretation Comme nts GLUCOSE (test code = 7) 139 MG/DL 70-99 H BUN (test code = 8) 17 MG/DL 6-20 CREATININE (test code = 4) 1.09 MG/DL 0.60-1.30 eGFR (2020 CKD-EPI) (test code = 40508) 63 ML/MIN/1.73 >60 CALC BUN/CREAT (test code = 2235) 16 RATIO 6-28 SODIUM (test code = 2230) 140 MEQ/L 133-146 POTASSIUM (test code = 2228) 4.2 MEQ/L 3.5-5.4 CHLORIDE (test code = 5) 104 MEQ/L 95-107 CARBON DIOXIDE (test code = 2205) 24 MEQ/L 19-31 CALCIUM (test code = 2208) 9.6 MG/DL 8.5-10.5 PROTEIN, TOTAL (test code = 2228) 7.2 G/DL 6.1-8.3 ALBUMIN (test code = 2200) 4.4 G/DL 3.5-5.2 CALC GLOBULIN (test code = 0) 2.8 G/DL 1.9-3.7 CALC A/G RATIO (test code = 2233) 1.6 RATIO 1.0-2.6 BILIRUBIN, TOTAL (test code = 2206) <0.2 MG/DL See_Comment [Automated me ssage] The system which generated this result transmitted reference range: <=1.2. The reference range was not used to interpret this result as normal/abnormal. ALKALINE PHOSPHATASE (test code = 2203) 112 U/L 40-118 AST (test code = 8) 19 U/L 9-40 ALT (test code = 2219) 23 U/L 5-40 UNLESS OTHERWISE INDICATED, ALL TESTING PERFORMED [facility] [address] [place] [address] PROFESSOR OF POLITICAL SCIENCE: PIO BURDICK M.D. IA NUMBER [id number] [place]. [id number] HEMOGLOBIN [id number] 03:38:25* Test Item Value Reference Range Interpretation Comme nts HEMOGLOBIN A1c (test code = 98591) 6.5 % 4.2-5.6 H [employer] S [employer]OCIATION GUIDELINES FOR HGB A1C: PREDIABETES/INCREASED RISK . . . . . . . 5.7-6.4% DIAGNOSIS OF DIABETES . . . . . . . . . >=6.5% WITH CONFIRMATION OR APPROPRIATE SYMPTOMS NOTE: ASSAY MAY BE AFFECTED BY HEMOGLOBINOPATHIES (SICKLE CELL ANEMIA, S-C DISEASE, OTHERS) OR ARTIFICIALLY LOWERED BY DECREASED RED CELL SURVIVAL (HEMOLYTIC ANEMIAS, BLOOD LOSS, ETC.). CONSIDER ALTERNATE TESTING OR LABORATORY CONSULTATION. TSH, THIRD [id number] 06:59:53* Test Item Value Reference Range Interpretation Comme nts TSH, THIRD GENERATION (test code = 2821) 0.728 UIU/ML 0.400-4.100 UNLESS OTHERWISE INDICATED, ALL TESTING PERFORMED [facility] [address] [address] PROFESSOR OF POLITICAL SCIENCE: PIO BURDICK M.D. IA NUMBER [id number] [place]. [id number] LIPID [id number] 05:57:50* Test Item Value Reference Range Interpretation Comme nts CHOLESTEROL (test code = 2210) 265 MG/DL <200 H TRIGLYCERIDES (test code = 2232) 386 MG/DL <150 H HDL CHOLESTEROL (test code = 2220) 50 MG/DL >39 CALC LDL CHOL (test code = 2237) 156 MG/DL <100 H NOTE: CALCULATED LDL IS BASED ON SEVERO-CUEVAS METHOD WHICHINCLUDES ADJUSTABLE TRIGLYCERIDE:VLDL CHOLESTEROL RATIO.THIS FACTOR VARIES BY MEASURED TRIGLYCERIDE AND NON-HDLCHOLESTEROL CONCENTRATIONS WITH INCREASED CALCULATED LDL SEENIN HIGHER TRIGLYCERIDE OR LOWER NON-HDL SPECIMENS. FOR MOREINFORMATION, SEE CLIENT ANNOUNCEMENT AT [email or web address] RISK RATIO LDL/HDL (test code = 2238) 3.12 RATIO <3.22 COMPREHENSIVE METABOLIC [id number] 05:57:50* Test Item Value Reference Range Interpretation Comme nts GLUCOSE (test code = 2217) 85 MG/DL 70-99 BUN (test code = 2208) 15 MG/DL 6-20 CREATININE (test code = 2214) 0.92 MG/DL 0.60-1.30 eGFR (2020 CKD-EPI) (test code = 48265) 78 ML/MIN/1.73 >60 CALC BUN/CREAT (test code = 2235) 16 RATIO 6-28 SODIUM (test code = 2231) 142 MEQ/L 133-146 POTASSIUM (test code = 2228) 4.7 MEQ/L 3.5-5.4 CHLORIDE (test code = 2215) 103 MEQ/L 95-107 CARBON DIOXIDE (test code = 2206) 26 MEQ/L 19-31 CALCIUM (test code = 220) 9.7 MG/DL 8.5-10.5 PROTEIN, TOTAL (test code = 222) 7.3 G/DL 6.1-8.3 ALBUMIN (test code = 2201) 4.3 G/DL 3.5-5.2 CALC GLOBULIN (test code = 2240) 3.0 G/DL 1.9-3.7 CALC A/G RATIO (test code = 2233) 1.4 RATIO 1.0-2.6 BILIRUBIN, TOTAL (test code = 7) 0.2 MG/DL See_Comment [Automated me ssage] The system which generated this result transmitted reference range: <=1.2. The reference range was not used to interpret this result as normal/abnormal. ALKALINE PHOSPHATASE (test code = 2203) 119 U/L 40-118 H AST (test code = 8) 17 U/L 9-40 ALT (test code = 2219) 21 U/L 5-40 HEMOGLOBIN [id number] 05:42:46* Test Item Value Reference Range Interpretation Comme nts HEMOGLOBIN A1c (test code = 78896) 6.4 % 4.2-5.6 H CBC W/AUTO DIFF WITH [id number] 04:28:23* Test Item Value Reference Range Interpretation Comme nts WBC (test code = 1001) 9.8 K/UL 3.5-11.0 RBC (test code = 1002) 4.54 M/UL 3.80-5.40 HEMOGLOBIN (test code = 1003) 14.4 G/DL 11.5-15.5 HEMATOCRIT (test code = 1004) 41.4 % 34.0-45.0 MCV (test code = 1005) 91.2 fL 80.0-99.0 MCH (test code = 1006) 31.7 PG 25.0-33.0 MCHC (test code = 1007) 34.8 G/DL 31.0-36.0 RDW (test code = 1038) 13.7 % 11.5-15.0 NEUTROPHILS (test code = 1008) 60.3 % LYMPHOCYTES (test code = 1010) 28.8 % MONOCYTES (test code = 1011) 7.2 % EOSINOPHILS (test code = 1012) 2.9 % BASOPHILS (test code = 1013) 0.6 % IMMATURE GRANYLOCYTES (test code = 1036) 0.2 % NUCLEATED RBCS (test code = 1065) 0.0 /100 WBC'S See_Comment [Automated messa ge] The system which generated this result transmitted reference range: 0.0. The reference range was not used to interpret this result as normal/abnormal. PLATELET COUNT (test code = 1015) 324 K/UL 130-400 ABSOLUTE NEUTROPHILS (test code = 1066) 5.90 K/UL 1.50-7.50 ABSOLUTE LYMPHOCYTES (test code = 1067) 2.82 K/UL 1.00-4.00 ABSOLUTE MONOCYTES (test code = 1068) 0.70 K/UL 0.20-1.00 ABSOLUTE EOSINOPHILS (test code = 1040) 0.28 K/UL 0.00-0.50 ABSOLUTE BASOPHILS (test code = 1069) 0.06 K/UL 0.00-0.20 ABS IMMATURE GRANULOCYTES (test code = 1020) 0.02 K/UL 0.00-0.10 ABS NUCLEATED RBCS (test code = 65205) 0.00 K/UL 0.00-0.11 COMP. METABOLIC PANEL (96569)2021-01-24 14:36:50* Test Item Value Reference Range Interpretation Comme nts NA (test code = 5696109544) 138 mmol/L 135-145 K (test code = 8437960473) 4.1 mmol/L 3.5-5.0 CL (test code = 1328229079) 104 mmol/L 98-108 CO2 TOTAL (test code = 7918321883) 26 mmol/L 23-31 AGAP (test code = 1480008800) 2-16 BUN (test code = 3729076671) 16 mg/dL 7-23 GLUCOSE (test code = 7291941221) 115 mg/dL 70-110 H CREATININE (test code = 4106306074) 0.87 mg/dL 0.50-1.04 TOTAL BILI (test code = 8282194427) 0.4 mg/dL 0.1-1.1 CALCIUM (test code = 8413618522) 9.9 mg/dL 8.6-10.6 T PROTEIN (test code = 0180919473) 7.0 g/dL 6.3-8.2 ALBUMIN (test code = 3483257193) 4.2 g/dL 3.5-5.0 ALK PHOS (test code = 0970395689) 110 U/L 34-122 ALTv (test code = 1742-6) 26 U/L 5-35 AST(SGOT) (test code = 4510581804) 32 U/L 13-40 eGFR (test code = 4769683523) mL/min/1.73m2 JAMAL (test code = JAMAL) Association of [...] or abnormalities in imaging tests). Lab Interpretation (test code = 59730-5) Abnormal [facility] WITH [id number] 14:26:50* Test Item Value Reference Range Interpretation Comme nts WBC (test code = 6690-2) See_Comment [Automated [employer]] The system which generated this result transmitted reference range: 4.30 - 11.10 10*3/?L. The reference range was not used to interpret this result as normal/abnormal. RBC (test code = 789-8) See_Comment [Automated [employer]] The system which generated this result transmitted reference range: 3.93 - 5.25 10*6/?L. The reference range was not used to interpret this result as normal/abnormal. HGB (test code = 718-7) 13.5 g/dL 11.6-15.0 HCT (test code = 4544-3) 39.6 % 35.7-45.2 MCV (test code = 787-2) 92.5 fL 80.6-95.5 MCH (test code = 785-6) 31.5 pg 25.9-32.8 MCHC (test code = 786-4) 34.1 g/dL 31.6-35.1 RDW-SD (test code = 59245-2) 42.4 fL 39.0-49.9 RDW-CV (test code = 788-0) 12.4 % 12.0-15.5 PLT (test code = 777-3) See_Comment [Automated [employer]] The system which generated this result transmitted reference range: 166 - 358 10*3/?L. The reference range was not used to interpret this result as normal/abnormal. MPV (test code = 74561-5) 11.5 fL 9.5-12.9 NRBC/100 WBC (test code = 1770017926) See_Comment [Automated [employer] ssage] The system which generated this result transmitted reference range: 0.0 - 10.0 /100 WBCs. The reference range was not used to interpret this result as normal/abnormal. NRBC x10^3 (test code = 5020515557) <0.01 See_Comment [Automated [employer]] The system which generated this result transmitted reference range: 10*3/?L. The reference range was not used to interpret this result as normal/abnormal. GRAN MAT (NEUT) % (test code = 770-8) 54.3 % IMM GRAN % (test code = 9852170202) 0.40 % LYMPH % (test code = 736-9) 34.6 % MONO % (test code = 5905-5) 6.6 % EOS % (test code = 713-8) 3.4 % BASO % (test code = 706-2) 0.7 % GRAN MAT x10^3(ANC) (test code = 3029530070) 5.76 10*3/uL 1.88-7.09 IMM GRAN x10^3 (test code = 9229632900) 0.04 10*3/uL 0.00-0.06 LYMPH x10^3 (test code = 731-0) 3.66 10*3/uL 1.32-3.29 H MONO x10^3 (test code = 742-7) 0.70 10*3/uL 0.33-0.92 EOS x10^3 (test code = 711-2) 0.36 10*3/uL 0.03-0.39 BASO x10^3 (test code = 704-7) 0.07 10*3/uL 0.01-0.07 Lab Interpretation (test code = 50639-5) Abnormal [facility]"
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
[2023-04-25 03:36] VITALS: BP 108/72; TEMP 97.3; O2SAT 97
== END ==
LOC: ER 00:03
DX: H57.13 Ocular pain, bilateral (principal); T59.3X3A Toxic effect of lacrimogenic gas, assault, initial encounter
CPT/HCPCS: 96372; 99284

== ENCOUNTER 2023-12-27 06:15 | Emergency (ER) | payer SELFPAY ==
--- OUTSIDE RECORDS SUMMARY | 2023-12-27 06:21 | XMS REPORT | Continuity of Care Document ---
Author Name Unknown Address [address] [facility] [address]. [address] [place] [address] [facility] thconnect Address [address] [facility]. [address] [place] [address] Care Team Providers Care Licsw Name Role Phone Pcp, Patient Does Not Have A Primary Care Physic vicente NEO BLAND Attending Clinician Unavailable Neo Bland DO Attending Clinician [phone] Doctor Unassigned, [place] Attending Clinician U navailable Problems Condition Name Condition Details Condition Category Status Onset Date Resolution Date Last Treatment Date Treating Clinician Comments Source Pyelonephr itis Pyelonephr itis Disease Active 2017-03 00:00: 00 [facility] Obesity (BMI 30-39.9) Obesity (BMI 30-39.9) Disease Active 2017-03 00:00: 00 [facility] Sepsis Sepsis Disease Active 2017-03 00:00: 00 [facility] Kidney stone Kidney stone Disease Active 2014-03 00:00: 00 [facility] Allergies, Adverse Reactions, Alerts Allergy Name Allergy Type Status Severity Reaction(s) Onset Date Inactive Date Treating Clinician Comments Source HONEYDEW DRUG INGREDI Active Low Swelling 2017-03 00:00: 00 [facility] RASPBERR Y DRUG INGREDI Active Low Swelling 2017-03 00:00: 00 [facility] Honeydew Propensi ty to adverse reaction s Active Swelling 2017-03 00:00: 00 [facility] Raspberr y Propensi ty to adverse reaction s Active Swelling 2017-03 00:00: 00 [facility] Social History Social Habit Start Date Stop Date Quantity Comments Source History of tobacco use Cigarette Smoker [facility] Exposure to SARS-CoV-2 (event) Not sure [facility] Alcohol intake 2021-01-24 00:00:00 2021-01-24 00:00:00 Current non-drinker of alcohol (finding) [facility] Tobacco Comment 2018-02-24 00:00:00 2018-02-24 00:00:00 [id number] [facility] Sex Assigned At 1975 00:00:00 1975 00:00:00 [facility] Smoking Status Start Date Stop Date Source Current every day smoker [facility] Medications Ordered Medication Name Filled Medication Name Start Date Stop Date Current Medication? Ordering Clinician Indication Dosage Frequency Signature (SIG) Comments Components Source metformin 500 mg tablet 11-23 00:00: 00 Yes 1mg Db Flanagan lisinopril 20 mg-hydrochl orothiazide 12.5 mg tablet 0 16 00:00: 00 Yes 1mg Db Flanagan atorvastati n 20 mg tablet 0 16 00:00: 00 Yes 1mg Db Flanagan lisinopril 20 mg-hydrochl orothiazide 12.5 mg tablet 05-14 00:00: 00 Yes 1mg Db Flanagan metformin 500 mg tablet - 00:00: 00 Yes 1mg Db Flanagan atorvastati n 20 mg tablet 0 05-14 00:00: 00 Yes 1mg Db Flanagan LISINOP/HCT Z 20-12.5 2022-0 -28 00:00: 00 Yes Db Flanagan ATORVASTATI N 20MG 2022-0 11-04 00:00: 00 Yes [id number] Db Flanagan ATORVASTATI N 20MG 0 07-16 00:00: 00 Yes Db Flanagan TAKE 1 TABLET DAILY. 07-16 00:00: 00 06-26 00:00 :00 No 500 Db Flanagan TAKE 1 TABLET DAILY. 5-09 00:00: 00 06-26 00:00 :00 No Db Flanagan TAKE 1 TABLET DAILY. 5-07 00:00: 00 06-26 00:00 :00 No Db Flanagan TAKE 1 TABLET DAILY. 3-02 00:00: 00 06-26 00:00 :00 No Db Flanagan TAKE 1 TABLET DAILY. 3-02 00:00: 00 06-26 00:00 :00 No 500 Db Flanagan Dose Unknown 2021-03 2-06 00:00: 00 Yes Db Flanagan TAKE 1 TABLET DAILY. 2021-03 2-05 00:00: 00 06-26 00:00 :00 No 20 Db Flanagan TAKE 1 TABLET DAILY. 2021-03 2-05 00:00: 00 06-26 00:00 :00 No 500 Db Flanagan TAKE 2 TABLETS EVERY 12 HOURS 9-15 00:00: 00 06-26 00:00 :00 No Db Flanagan TAKE 1 TABLET BY MOUTH ONCE DAILY 0 9-06 00:00: 00 Yes Db Flanagan TAKE ONE TABLET DAILY AT BEDTIME 8-08 00:00: 00 Yes 120 Db Flanagan lisinopril 20 mg-hydrochl orothiazide 12.5 mg tablet 6-24 00:00: 00 Yes 1mg Db Flanagan lisinopril 20 mg-hydrochl orothiazide 12.5 mg tablet -19 00:00: 00 Yes 1mg Db Flanagan Dose Unknown -19 00:00: 00 Yes Db Flanagan lisinopril 20 mg-hydrochl orothiazide 12.5 mg tablet -28 00:00: 00 Yes 1mg Db Flanagan rosuvastati n 5 mg tablet 1-28 00:00: 00 Yes 1mg Db Flanagan lisinopril 20 mg-hydrochl orothiazide 12.5 mg tablet 1-24 00:00: 00 Yes 1mg Db Flanagan rosuvastati n 5 mg tablet 04-02 00:00: 00 Yes 1mg Db Flanagan rosuvastati n 10 mg tablet 2020-03 00:00: 00 Yes 1mg Db Flanagan lisinopril 20 mg-hydrochl orothiazide 12.5 mg tablet 2020-03 00:00: 00 Yes 1mg Db Flanagan lisinopril 20 mg-hydrochl orothiazide 12.5 mg tablet 2020-03 00:00: 00 Yes 1mg Db Flanagan metoclopram guillermo HCl (REGLAN) injection 10 mg 2020-03 15:00: 00 01-24 14:12 :00 No 10mg 10 mg, Slow IV Push, ONCE, 1 dose, On Fri01/24/21 at 0900, [facility] ondansetron (ZOFRAN (PF)) injection 4 mg 2020-03 15:00: 00 01-24 14:11 :00 No 4mg 4 mg, Slow IV Push, ONCE, 1 dose, On Fri01/24/21 at 0900, [facility] metoclopram guillermo HCl 10 mg tablet 2020-03 00:00: 00 Yes [id number] 10mg Take 1 tablet by mouth every 6 (six) hours as needed for Nausea and Vomiting (N/V) (headache) . [facility] permethrin 5 % cream 2019-03 00:00: 00 Yes [id number] Apply cream from head to toe, including soles of feet. Leave on for 12 hours, then rinse [facility] hydrOXYzine (VISTARIL) 50 mg capsule 2019-03 00:00: 00 Yes [id number] 50mg Take 1 capsule by mouth 3 (three) times daily as needed for Itching. [facility] lisinopril 10 mg tablet 2017-03 14:31: 05 Yes 10mg Take 10 mg by mouth daily. [facility] ciprofloxac in HCl 500 mg tablet 2017-03 00:00: 00 Yes 500mg Take 1 tablet by mouth every 12 (twelve) hours. [facility] lisinopril 10 mg tablet 09-15 00:00: 00 Yes 1mg Db Flanagan lisinopril 10 mg tablet 06-18 00:00: 00 Yes 1mg Db Flanagan omeprazole 20 mg capsule,del ayed release 06-18 00:00: 00 Yes 1mg Db Flanagan acetaminoph en-codeine (TYLENOL #3) 300-30 mg tablet 2014-03 00:00: 00 Yes 1{tbl} Take 1-2 Tabs by mouth every 6 (six) hours as needed for Pain (scale 1-3), Pain (scale 4-6) or Pain (scale 7-10). [facility] Vital Signs Vital Name Observation Time Observation Value Comments S deya Systolic blood pressure 2021-01-24 15:00:00 166 mm[Hg] [facility] Diastolic blood pressure 2021-01-24 15:00:00 98 mm[Hg] [facility] Heart rate 2021-01-24 15:00:00 87 /min [facility] Respiratory rate 2021-01-24 15:00:00 20 /min [facility] Oxygen saturation in Arterial blood by Pulse oximetry 2021-01-24 15:00:00 96 /min [facility] Body temperature 2021-01-24 13:52:00 36.78 [place] [facility] Body weight 2021-01-24 13:52:00 108.863 kg [facility] BMI 2021-01-24 13:52:00 41.20 kg/m2 [facility] BP Systolic 2023-12-02 13:49:00 102 mm[Hg] Efraín Flanagan BP Diastolic 2023-12-02 13:49:00 70 mm[Hg] [facility] Flanagan Weight Measured 2023-12-02 13:49:00 244.30 pounds Db Flanagan Height Measured 2023-12-02 13:49:00 65.00 inches Db Flanagan Body Temperature 2023-12-02 13:49:00 98.50 degrees Db Flanagan Heart Rate 2023-12-02 13:49:00 92.00 /min Kitty en F Panchito Respiratory Rate 2023-12-02 13:49:00 97.90 /min Db F Panchito BP Systolic 2023-11-24 09:45:00 105 mm[Hg] Step hen F Panchito BP Diastolic 2023-11-24 09:45:00 70 mm[Hg] Ryder phen F Panchito Weight Measured 2023-11-24 09:45:00 245.00 pounds Db F Panchito Height Measured 2023-11-24 09:45:00 65.00 inches Db F Panchito Body Temperature 2023-11-24 09:45:00 98.20 degrees Db F Panchito Heart Rate 2023-11-24 09:45:00 89.00 /min Kitty en F Panchito Respiratory Rate 2023-11-24 09:45:00 16.00 /min Db F Panchito BP Systolic 2023-11-24 09:35:00 105 mm[Hg] Step hen F Panchito BP Diastolic 2023-11-24 09:35:00 70 mm[Hg] Ryder phen F Panchito Weight Measured 2023-11-24 09:35:00 245.00 pounds Db F Panchito Height Measured 2023-11-24 09:35:00 65.00 inches Db F Panchito Body Temperature 2023-11-24 09:35:00 98.20 degrees Db F Panchito Heart Rate 2023-11-24 09:35:00 89.00 /min Kitty en F Panchito Respiratory Rate 2023-11-24 09:35:00 16.00 /min Db F Panchito BP Systolic 2023-05-15 08:45:00 120 mm[Hg] Step hen F Panchito BP Diastolic 2023-05-15 08:45:00 79 mm[Hg] Ryder phen F Panchito Weight Measured 2023-05-15 08:45:00 246.60 pounds Db F Panchito Height Measured 2023-05-15 08:45:00 65.00 inches Db F Panchito Body Temperature 2023-05-15 08:45:00 98.30 degrees Db F Panchito Heart Rate 2023-05-15 08:45:00 90.00 /min Kitty en F Panchito Respiratory Rate 2023-05-15 08:45:00 18.00 /min Db F Panchito BP Systolic 2022-07-16 08:01:00 117 mm[Hg] Step hen F Panchito BP Diastolic 2022-07-16 08:01:00 77 mm[Hg] Ryder phen F Panchito Weight Measured 2022-07-16 08:01:00 225.80 pounds Db F Panchito Height Measured 2022-07-16 08:01:00 65.00 inches Db F Panchito Body Temperature 2022-07-16 08:01:00 98.30 degrees Db F Panchito Heart Rate 2022-07-16 08:01:00 67.00 /min Kitty en F Panchito Respiratory Rate 2022-07-16 08:01:00 Db F Panchito BP Systolic 2022-05-09 17:03:00 120 mm[Hg] Step hen F Panchito BP Diastolic 2022-05-09 17:03:00 82 mm[Hg] Ryder phen F Panchito Weight Measured 2022-05-09 17:03:00 221.00 pounds Db F Panchito Height Measured 2022-05-09 17:03:00 65.00 inches Db F Panchito Body Temperature 2022-05-09 17:03:00 98.50 degrees Db F Panchito Heart Rate 2022-05-09 17:03:00 89.00 /min Kitty en F Panchito Respiratory Rate 2022-05-09 17:03:00 18.00 /min Db F Panchito BP Systolic 2022-02-07 15:41:00 102 mm[Hg] Step hen F Panchito BP Diastolic 2022-02-07 15:41:00 67 mm[Hg] Ryder phen F Panchito Weight Measured 2022-02-07 15:41:00 237.00 pounds Db F Panchito Height Measured 2022-02-07 15:41:00 65.00 inches Db F Panchito Body Temperature 2022-02-07 15:41:00 98.20 degrees Db F Panchito Heart Rate 2022-02-07 15:41:00 96.00 /min Kitty en F Panchito Respiratory Rate 2022-02-07 15:41:00 18.00 /min Db F Panchito BP Systolic 2021-11-13 09:03:00 126 mm[Hg] Step hen F Panchito BP Diastolic 2021-11-13 09:03:00 80 mm[Hg] Ryder phen F Panchito Weight Measured 2021-11-13 09:03:00 243.20 pounds Db F Panchito Height Measured 2021-11-13 09:03:00 65.00 inches Db F Panchito Body Temperature 2021-11-13 09:03:00 97.60 degrees Db F Panchito Heart Rate 2021-11-13 09:03:00 95.00 /min Kitty en F Panchito Respiratory Rate 2021-11-13 09:03:00 16.00 /min Db F Panchito BP Systolic 2021-04-03 13:29:00 122 mm[Hg] Step hen F Panchito BP Diastolic 2021-04-03 13:29:00 82 mm[Hg] Ryder phen F Panchito Weight Measured 2021-04-03 13:29:00 239.80 pounds Db F Panchito Height Measured 2021-04-03 13:29:00 65.00 inches Db F Panchito Body Temperature 2021-04-03 13:29:00 98.20 degrees Db F Panchito Heart Rate 2021-04-03 13:29:00 90.00 /min Kitty en F Panchito Respiratory Rate 2021-04-03 13:29:00 Db F Panchito BP Systolic 2021-04-02 16:38:00 123 mm[Hg] Step hen F Panchito BP Diastolic 2021-04-02 16:38:00 79 mm[Hg] Ryder phen F Panchito Weight Measured 2021-04-02 16:38:00 241.80 pounds Db F Panchito Height Measured 2021-04-02 16:38:00 65.00 inches Db F Panchito Body Temperature 2021-04-02 16:38:00 98.40 degrees Db F Panchito Heart Rate 2021-04-02 16:38:00 90.00 /min Kitty en F Panchito Respiratory Rate 2021-04-02 16:38:00 Db F Panchito Procedures Procedure Date / Time Performed Performing Clinicia n Source COMP. METABOLIC PANEL ([id number]) 2021-01-24 14:02:00 Neo Bland [facility] CBC WITH DIFF 2021-01-24 14:02:00 Neo Bland [facility] URINALYSIS 2021-01-24 14:02:00 Bland, [facility] RAPID INFLUENZA A/B 2021-01-24 14:02:00 Zohra Bland [facility] COVID-19 (ID NOW RAPID TESTING) 2021-01-24 14:02:00 Neo Bland [facility] NOTICE OF PRIVACY PRACTICES 2021-01-24 13:45:00 Doctor Unassigned, [place] [facility] CONSENT/REFUSAL FOR DIAGNOSIS AND TREATMENT 2021-01-24 13:44:43 Doctor Unassigned, [place] [facility] Encounters Start Date/Time End Date/Time Encounter Type Admission Type Attending [facility] Care Department Encounter ID Source 2023-12-02 13:40:02 2023-12-02 13:40:02 Outpatient [facility] [id number] Db Flanagan 2023-11-24 09:27:57 2023-11-24 09:27:57 Outpatient [facility] [id number] Db Flanagan 2023-11-24 00:00:00 2023-11-24 00:00:00 Outpatient Visit [facility] [id number] Db Flanagan 2023-05-21 09:50:50 2023-05-21 09:50:50 Outpatient [facility] [id number] Db Munoz Panchito 2023-05-15 08:40:23 2023-05-15 08:40:23 Outpatient [facility] [id number] Db Munoz Panchito 2023-05-15 00:00:00 2023-05-15 00:00:00 Outpatient Visit [facility] [id number] Db Flanagan 2022-07-16 08:00:00 2022-07-16 08:00:00 Outpatient [facility] [id number] Db Flanagan 2022-07-16 00:00:00 2022-07-16 00:00:00 Outpatient Visit [facility] [id number] Db Flanagan 2022-05-11 09:28:57 2022-05-11 09:28:57 Outpatient [facility] [id number] Db Flanagan 2022-05-09 16:52:49 2022-05-09 16:52:49 Outpatient [facility] [id number] Db Flanagan 2022-05-09 00:00:00 2022-05-09 00:00:00 Outpatient Visit [facility]FA [id number] Db Flanagan 2022-02-07 15:35:53 2022-02-07 15:35:53 Outpatient [facility] [id number] Db Flanagan 2022-02-07 00:00:00 2022-02-07 00:00:00 Outpatient Visit [facility] [id number] Db Flanagan 2021-11-13 00:00:00 2021-11-13 00:00:00 Outpatient Visit [facility] [id number] Db Flanagan 2021-10-11 00:00:00 2021-10-11 00:00:00 Outpatient Visit [facility] [id number] Db Flanagan 2021-01-24 07:53:00 2021-01-24 09:32:00 Emergency X NEO BLAND [facility] ERT [id number] [facility] 2021-01-24 07:53:00 2021-01-24 09:32:00 Emergency Neo Bland [facility] .[id number] [facility] 2021-01-24 00:00:00 2021-01-24 00:00:00 Orders Only Doctor Unassigned, [place] [facility] [id number] [facility] 2020-01-23 20:00:00 2020-01-23 20:00:00 Emergency X [facility] ERT [id number] [facility] Results Test Description Test Time Test Comments Results Result Co mments Source Db Munoz AustinALBUMIN/CREATININE RATIO, RANDOM [id number] 00:00:00* Test Item Value Reference Range Interpretation Comme nts CREATININE, URINE, CONC. (te st code = 2072) 29.5 MG/DL ALBUMIN, URINE, RANDOM (test code = 94860) <0.2 MG/DL CALC ALBUMIN/CREAT, RND (izabel t code = 07315) <7 MG/G bD FlanaganLIPID [id number] 00:00:00* Test Item Value Reference Range Interpretation Comme nts CHOLESTEROL (test code = 2210) 193 MG/DL TRIGLYCERIDES (test code = 2232) 506 MG/DL HDL CHOLESTEROL (test code = 2220) 36 MG/DL CALC LDL CHOL (test code = 2237) (NOTE) MG/DL RISK RATIO LDL/HDL (test cod e = 2238) (NOTE) RATIO Db FlanaganCOMPREHENSIVE METABOLIC [id number] 00:00:00* Test Item Value Reference Range Interpretation Comme nts GLUCOSE (test code = 2217) 122 MG/DL BUN (test code = 2208) 12 MG/DL CREATININE (test code = 2214) 1.08 MG/DL eGFR (2020 CKD-EPI) (test co de = 88068) 63 ML/MIN/1.73 CALC BUN/CREAT (test code = 2235) 11 RATIO SODIUM (test code = 2231) 139 MEQ/L POTASSIUM (test code = 2228) 4.1 MEQ/L CHLORIDE (test code = 2215) 101 MEQ/L CARBON DIOXIDE (test code = 2206) 24 MEQ/L CALCIUM (test code = 2209) 9.8 MG/DL PROTEIN, TOTAL (test code = 2229) 6.8 G/DL ALBUMIN (test code = 2201) 4.4 G/DL CALC GLOBULIN (test code = 2240) 2.4 G/DL CALC A/G RATIO (test code = 2234) 1.8 RATIO BILIRUBIN, TOTAL (test code = 2207) 0.3 MG/DL ALKALINE PHOSPHATASE (test code = 2204) 122 U/L AST (test code = 2218) 18 U/L ALT (test code = 2219) 24 U/L Db FlanaganHEMOGLOBIN [id number] 00:00:00* Test Item Value Reference Range Interpretation Comme nts HEMOGLOBIN A1c (test code = 49673) 6.9 % Db Munoz AustinALBUMIN/CREATININE RATIO, RANDOM [id number] 00:00:00* Test Item Value Reference Range Interpretation Comme nts CREATININE, URINE, CONC. (te st code = 2072) 29.5 MG/DL ALBUMIN, URINE, RANDOM (test code = 28659) <0.2 MG/DL CALC ALBUMIN/CREAT, RND (izabel t code = 74772) <7 MG/G Db FlanaganLIPID [id number] 00:00:00* Test Item Value Reference Range Interpretation Comme nts CHOLESTEROL (test code = 2210) 193 MG/DL TRIGLYCERIDES (test code = 2232) 506 MG/DL HDL CHOLESTEROL (test code = 2220) 36 MG/DL CALC LDL CHOL (test code = 2237) (NOTE) MG/DL RISK RATIO LDL/HDL (test cod e = 2238) (NOTE) RATIO Db FlanaganCOMPREHENSIVE METABOLIC [id number] 00:00:00* Test Item Value Reference Range Interpretation Comme nts GLUCOSE (test code = 2217) 122 MG/DL BUN (test code = 2208) 12 MG/DL CREATININE (test code = 2214) 1.08 MG/DL eGFR (2020 CKD-EPI) (test co de = 61421) 63 ML/MIN/1.73 CALC BUN/CREAT (test code = 2235) 11 RATIO SODIUM (test code = 2231) 139 MEQ/L POTASSIUM (test code = 2228) 4.1 MEQ/L CHLORIDE (test code = 2215) 101 MEQ/L CARBON DIOXIDE (test code = 2206) 24 MEQ/L CALCIUM (test code = 2209) 9.8 MG/DL PROTEIN, TOTAL (test code = 2229) 6.8 G/DL ALBUMIN (test code = 2201) 4.4 G/DL CALC GLOBULIN (test code = 2240) 2.4 G/DL CALC A/G RATIO (test code = 2234) 1.8 RATIO BILIRUBIN, TOTAL (test code = 2207) 0.3 MG/DL ALKALINE PHOSPHATASE (test code = 2204) 122 U/L AST (test code = 2218) 18 U/L ALT (test code = 2219) 24 U/L Db FlanaganHEMOGLOBIN [id number] 00:00:00* Test Item Value Reference Range Interpretation Comme lanny HEMOGLOBIN A1c (test code = 69677) 6.9 % Db Munoz AustinALBUMIN/CREATININE RATIO, RANDOM [id number] 00:00:00* Test Item Value Reference Range Interpretation Comme lanny CREATININE, URINE, CONC. (te st code = 2072) 29.5 MG/DL ALBUMIN, URINE, RANDOM (test code = 89470) <0.2 MG/DL CALC ALBUMIN/CREAT, RND (izabel t code = 68195) <7 MG/G Db FlanaganLIPID [id number] 00:00:00* Test Item Value Reference Range Interpretation Comme nts CHOLESTEROL (test code = 2210) 193 MG/DL TRIGLYCERIDES (test code = 2232) 506 MG/DL HDL CHOLESTEROL (test code = 2220) 36 MG/DL CALC LDL CHOL (test code = 2237) (NOTE) MG/DL RISK RATIO LDL/HDL (test cod e = 2238) (NOTE) RATIO Db FlanaganCOMPREHENSIVE METABOLIC [id number] 00:00:00* Test Item Value Reference Range Interpretation Comme nts GLUCOSE (test code = 2217) 122 MG/DL BUN (test code = 2208) 12 MG/DL CREATININE (test code = 2214) 1.08 MG/DL eGFR (2020 CKD-EPI) (test co de = 83550) 63 ML/MIN/1.73 CALC BUN/CREAT (test code = 2235) 11 RATIO SODIUM (test code = 2231) 139 MEQ/L POTASSIUM (test code = 2228) 4.1 MEQ/L CHLORIDE (test code = 2215) 101 MEQ/L CARBON DIOXIDE (test code = 2206) 24 MEQ/L CALCIUM (test code = 2209) 9.8 MG/DL PROTEIN, TOTAL (test code = 2229) 6.8 G/DL ALBUMIN (test code = 2201) 4.4 G/DL CALC GLOBULIN (test code = 2240) 2.4 G/DL CALC A/G RATIO (test code = 2234) 1.8 RATIO BILIRUBIN, TOTAL (test code = 2207) 0.3 MG/DL ALKALINE PHOSPHATASE (test code = 2204) 122 U/L AST (test code = 2218) 18 U/L ALT (test code = 2219) 24 U/L Db FlanaganHEMOGLOBIN [id number] 00:00:00* Test Item Value Reference Range Interpretation Comme lanny HEMOGLOBIN A1c (test code = 49070) 6.9 % Db Munoz AustinALBUMIN/CREATININE RATIO, RANDOM [id number] 00:00:00* Test Item Value Reference Range Interpretation Comme nts CREATININE, URINE, CONC. (te st code = 2072) 29.5 MG/DL ALBUMIN, URINE, RANDOM (test code = 03438) <0.2 MG/DL CALC ALBUMIN/CREAT, RND (izabel t code = 72798) <7 MG/G Db FlanaganLIPID [id number] 00:00:00* Test Item Value Reference Range Interpretation Comme nts CHOLESTEROL (test code = 2210) 193 MG/DL TRIGLYCERIDES (test code = 2232) 506 MG/DL HDL CHOLESTEROL (test code = 2220) 36 MG/DL CALC LDL CHOL (test code = 2237) (NOTE) MG/DL RISK RATIO LDL/HDL (test cod e = 2238) (NOTE) RATIO Db FlanaganCOMPREHENSIVE METABOLIC [id number] 00:00:00* Test Item Value Reference Range Interpretation Comme nts GLUCOSE (test code = 2217) 122 MG/DL BUN (test code = 2208) 12 MG/DL CREATININE (test code = 2214) 1.08 MG/DL eGFR (2020 CKD-EPI) (test co de = 24080) 63 ML/MIN/1.73 CALC BUN/CREAT (test code = 2235) 11 RATIO SODIUM (test code = 2231) 139 MEQ/L POTASSIUM (test code = 2228) 4.1 MEQ/L CHLORIDE (test code = 2215) 101 MEQ/L CARBON DIOXIDE (test code = 2206) 24 MEQ/L CALCIUM (test code = 2209) 9.8 MG/DL PROTEIN, TOTAL (test code = 2229) 6.8 G/DL ALBUMIN (test code = 2201) 4.4 G/DL CALC GLOBULIN (test code = 2240) 2.4 G/DL CALC A/G RATIO (test code = 2234) 1.8 RATIO BILIRUBIN, TOTAL (test code = 2207) 0.3 MG/DL ALKALINE PHOSPHATASE (test code = 2204) 122 U/L AST (test code = 2218) 18 U/L ALT (test code = 2219) 24 U/L Db FlanaganHEMOGLOBIN [id number] 00:00:00* Test Item Value Reference Range Interpretation Comme nts HEMOGLOBIN A1c (test code = 68920) 6.9 % Db FlanaganALBUMIN/CREATININE RATIO, RANDOM [id number] 00:00:00* Test Item Value Reference Range Interpretation Comme nts CREATININE, URINE, CONC. (te st code = 2072) 29.5 MG/DL ALBUMIN, URINE, RANDOM (test code = 37872) <0.2 MG/DL CALC ALBUMIN/CREAT, RND (izabel t code = 75846) <7 MG/G Db FlanaganLIPID [id number] 00:00:00* Test Item Value Reference Range Interpretation Comme nts CHOLESTEROL (test code = 2210) 193 MG/DL TRIGLYCERIDES (test code = 2232) 506 MG/DL HDL CHOLESTEROL (test code = 2220) 36 MG/DL CALC LDL CHOL (test code = 2237) (NOTE) MG/DL RISK RATIO LDL/HDL (test cod e = 2238) (NOTE) RATIO Db FlanaganCOMPREHENSIVE METABOLIC [id number] 00:00:00* Test Item Value Reference Range Interpretation Comme nts GLUCOSE (test code = 2217) 122 MG/DL BUN (test code = 2208) 12 MG/DL CREATININE (test code = 2214) 1.08 MG/DL eGFR (2020 CKD-EPI) (test co de = 44554) 63 ML/MIN/1.73 CALC BUN/CREAT (test code = 2235) 11 RATIO SODIUM (test code = 2231) 139 MEQ/L POTASSIUM (test code = 2228) 4.1 MEQ/L CHLORIDE (test code = 2215) 101 MEQ/L CARBON DIOXIDE (test code = 2206) 24 MEQ/L CALCIUM (test code = 2209) 9.8 MG/DL PROTEIN, TOTAL (test code = 2229) 6.8 G/DL ALBUMIN (test code = 2201) 4.4 G/DL CALC GLOBULIN (test code = 2240) 2.4 G/DL CALC A/G RATIO (test code = 2234) 1.8 RATIO BILIRUBIN, TOTAL (test code = 2207) 0.3 MG/DL ALKALINE PHOSPHATASE (test code = 2204) 122 U/L AST (test code = 2218) 18 U/L ALT (test code = 2219) 24 U/L Db FlanaganHEMOGLOBIN [id number] 00:00:00* Test Item Value Reference Range Interpretation Comme nts HEMOGLOBIN A1c (test code = 29306) 6.9 % Db FlanaganALBUMIN/CREATININE RATIO, RANDOM [id number] 00:00:00* Test Item Value Reference Range Interpretation Comme nts CREATININE, URINE, CONC. (te st code = 2072) 29.5 MG/DL ALBUMIN, URINE, RANDOM (test code = 02909) <0.2 MG/DL CALC ALBUMIN/CREAT, RND (izabel t code = 68792) <7 MG/G Db FlanaganLIPID [id number] 00:00:00* Test Item Value Reference Range Interpretation Comme nts CHOLESTEROL (test code = 2210) 193 MG/DL TRIGLYCERIDES (test code = 2232) 506 MG/DL HDL CHOLESTEROL (test code = 2220) 36 MG/DL CALC LDL CHOL (test code = 2237) (NOTE) MG/DL RISK RATIO LDL/HDL (test cod e = 2238) (NOTE) RATIO Db FlanaganCOMPREHENSIVE METABOLIC [id number] 00:00:00* Test Item Value Reference Range Interpretation Comme nts GLUCOSE (test code = 2217) 122 MG/DL BUN (test code = 2208) 12 MG/DL CREATININE (test code = 2214) 1.08 MG/DL eGFR (2020 CKD-EPI) (test co de = 07586) 63 ML/MIN/1.73 CALC BUN/CREAT (test code = 2235) 11 RATIO SODIUM (test code = 2231) 139 MEQ/L POTASSIUM (test code = 2228) 4.1 MEQ/L CHLORIDE (test code = 2215) 101 MEQ/L CARBON DIOXIDE (test code = 2206) 24 MEQ/L CALCIUM (test code = 2209) 9.8 MG/DL PROTEIN, TOTAL (test code = 2229) 6.8 G/DL ALBUMIN (test code = 2201) 4.4 G/DL CALC GLOBULIN (test code = 2240) 2.4 G/DL CALC A/G RATIO (test code = 2234) 1.8 RATIO BILIRUBIN, TOTAL (test code = 2207) 0.3 MG/DL ALKALINE PHOSPHATASE (test code = 2204) 122 U/L AST (test code = 2218) 18 U/L ALT (test code = 2219) 24 U/L Db FlanaganHEMOGLOBIN [id number] 00:00:00* Test Item Value Reference Range Interpretation Comme lanny HEMOGLOBIN A1c (test code = 50354) 6.9 % Db FlanaganALBUMIN/CREATININE RATIO, RANDOM [id number] 00:00:00* Test Item Value Reference Range Interpretation Comme [facility] CREATININE, URINE, CONC. (te st code = 2072) 29.5 MG/DL ALBUMIN, URINE, RANDOM (test code = 67299) <0.2 MG/DL CALC ALBUMIN/CREAT, RND (izabel t code = 85624) <7 MG/G Db FlanaganLIPID [id number] 00:00:00* Test Item Value Reference Range Interpretation Comme nts CHOLESTEROL (test code = 2210) 193 MG/DL TRIGLYCERIDES (test code = 2232) 506 MG/DL HDL CHOLESTEROL (test code = 2220) 36 MG/DL CALC LDL CHOL (test code = 2237) (NOTE) MG/DL RISK RATIO LDL/HDL (test cod e = 2238) (NOTE) RATIO Db FlanaganCOMPREHENSIVE METABOLIC [id number] 00:00:00* Test Item Value Reference Range Interpretation Comme nts GLUCOSE (test code = 2217) 122 MG/DL BUN (test code = 2208) 12 MG/DL CREATININE (test code = 2214) 1.08 MG/DL eGFR (2020 CKD-EPI) (test co de = 81621) 63 ML/MIN/1.73 CALC BUN/CREAT (test code = 2235) 11 RATIO SODIUM (test code = 2231) 139 MEQ/L POTASSIUM (test code = 2228) 4.1 MEQ/L CHLORIDE (test code = 2215) 101 MEQ/L CARBON DIOXIDE (test code = 2206) 24 MEQ/L CALCIUM (test code = 2209) 9.8 MG/DL PROTEIN, TOTAL (test code = 222) 6.8 G/DL ALBUMIN (test code = 2201) 4.4 G/DL CALC GLOBULIN (test code = 2240) 2.4 G/DL CALC A/G RATIO (test code = 223) 1.8 RATIO BILIRUBIN, TOTAL (test code = 2206) 0.3 MG/DL ALKALINE PHOSPHATASE (test code = 220) 122 U/L AST (test code = 221) 18 U/L ALT (test code = 221) 24 U/L Db Munoz CovertLIPID [id number] 05:37:58* Test Item Value Reference Range Interpretation Comme nts CHOLESTEROL (test code = 0) 142 MG/DL <200 TRIGLYCERIDES (test code = 2232) 168 MG/DL <150 H HDL CHOLESTEROL (test code = 2219) 39 MG/DL >39 L CALC LDL CHOL (test code = 2237) 76 MG/DL <100 NOTE: CALCULATED LDL IS BASED ON SEVERO-CUEVAS METHOD WHICHINCLUDES ADJUSTABLE TRIGLYCERIDE:VLDL CHOLESTEROL RATIO.THIS FACTOR VARIES BY MEASURED TRIGLYCERIDE AND NON-HDLCHOLESTEROL CONCENTRATIONS WITH INCREASED CALCULATED LDL SEENIN HIGHER TRIGLYCERIDE OR LOWER NON-HDL SPECIMENS. FOR MOREINFORMATION, SEE CLIENT ANNOUNCEMENT AT [email or web address] [email or web address] RATIO LDL/HDL (test code = 223) 1.95 RATIO <3.22 COMPREHENSIVE METABOLIC [id number] 05:37:58* Test Item Value Reference Range Interpretation Comme nts GLUCOSE (test code = 2217) 125 MG/DL 70-99 H BUN (test code = 2207) 15 MG/DL 6-20 CREATININE (test code = 221) 0.92 MG/DL 0.60-1.30 eGFR (2020 CKD-EPI) (test code = 66640) 77 ML/MIN/1.73 >60 CALC BUN/CREAT (test code = 2235) 16 RATIO 6-28 SODIUM (test code = 2230) 139 MEQ/L 133-146 POTASSIUM (test code = 2228) 4.2 MEQ/L 3.5-5.4 CHLORIDE (test code = 2215) 103 MEQ/L 95-107 CARBON DIOXIDE (test code = 2206) 24 MEQ/L 19-31 CALCIUM (test code = 2209) 9.4 MG/DL 8.5-10.5 PROTEIN, TOTAL (test code = 2229) 6.6 G/DL 6.1-8.3 ALBUMIN (test code = 2201) 4.2 G/DL 3.5-5.2 CALC GLOBULIN (test code = 2240) 2.4 G/DL 1.9-3.7 CALC A/G RATIO (test code = 2234) 1.8 RATIO 1.0-2.6 BILIRUBIN, TOTAL (test code = 2206) 0.2 MG/DL <=1.2 ALKALINE PHOSPHATASE (test code = 2203) 102 U/L 40-123 AST (test code = 221) 33 U/L 9-40 ALT (test code = 221) 49 U/L 5-40 H UNLESS OTHERWISE INDICATED, ALL TESTING PERFORMED AT [facility] [address] [place] [address] COURT CRIER: BRENDAN RICO M.D. [place] NUMBER [id number] [facility] [place]. [id number] HEMOGLOBIN [id number] 03:37:18* Test Item Value Reference Range Interpretation Comme nts HEMOGLOBIN A1c (test code = 63885) 6.5 % 4.2-5.6 H [employer] GUIDELINES FOR HGB A1C: [...] ETC.). CONSIDER ALTERNATE TESTING OR LABORATORY CONSULTATION. COMPREHENSIVE METABOLIC [id number] 00:00:00* Test Item Value Reference Range Interpretation Comme nts GLUCOSE (test code = 7) 125 MG/DL BUN (test code = 8) 15 MG/DL CREATININE (test code = 2214) 0.92 MG/DL eGFR (2020 CKD-EPI) (test co de = 36744) 77 ML/MIN/1.73 CALC BUN/CREAT (test code = 2235) 16 RATIO SODIUM (test code = 2231) 139 MEQ/L POTASSIUM (test code = 2228) 4.2 MEQ/L CHLORIDE (test code = 2215) 103 MEQ/L CARBON DIOXIDE (test code = 2206) 24 MEQ/L CALCIUM (test code = 2209) 9.4 MG/DL PROTEIN, TOTAL (test code = 2229) 6.6 G/DL ALBUMIN (test code = 2201) 4.2 G/DL CALC GLOBULIN (test code = 2240) 2.4 G/DL CALC A/G RATIO (test code = 2234) 1.8 RATIO BILIRUBIN, TOTAL (test code = 2207) 0.2 MG/DL ALKALINE PHOSPHATASE (test code = 2204) 102 U/L AST (test code = 2218) 33 U/L ALT (test code = 2219) 49 U/L Db FlanaganHEMOGLOBIN [id number] 00:00:00* Test Item Value Reference Range Interpretation Comme nts HEMOGLOBIN A1c (test code = 56436) 6.5 % Db FlanaganLIPID [id number] 00:00:00* Test Item Value Reference Range Interpretation Comme nts CHOLESTEROL (test code = 2210) 142 MG/DL TRIGLYCERIDES (test code = 2232) 168 MG/DL HDL CHOLESTEROL (test code = 2220) 39 MG/DL CALC LDL CHOL (test code = 2237) 76 MG/DL RISK RATIO LDL/HDL (test cod e = 2238) 1.95 RATIO Db FlanaganCOMPREHENSIVE METABOLIC [id number] 00:00:00* Test Item Value Reference Range Interpretation Comme nts GLUCOSE (test code = 2217) 125 MG/DL BUN (test code = 2208) 15 MG/DL CREATININE (test code = 2214) 0.92 MG/DL eGFR (2020 CKD-EPI) (test co de = 39385) 77 ML/MIN/1.73 CALC BUN/CREAT (test code = 2235) 16 RATIO SODIUM (test code = 2231) 139 MEQ/L POTASSIUM (test code = 2228) 4.2 MEQ/L CHLORIDE (test code = 2215) 103 MEQ/L CARBON DIOXIDE (test code = 2206) 24 MEQ/L CALCIUM (test code = 2209) 9.4 MG/DL PROTEIN, TOTAL (test code = 2229) 6.6 G/DL ALBUMIN (test code = 2201) 4.2 G/DL CALC GLOBULIN (test code = 2240) 2.4 G/DL CALC A/G RATIO (test code = 2234) 1.8 RATIO BILIRUBIN, TOTAL (test code = 2207) 0.2 MG/DL ALKALINE PHOSPHATASE (test code = 2204) 102 U/L AST (test code = 2218) 33 U/L ALT (test code = 2219) 49 U/L Db FlanaganHEMOGLOBIN [id number] 00:00:00* Test Item Value Reference Range Interpretation Comme nts HEMOGLOBIN A1c (test code = 22984) 6.5 % Db FlanaganLIPID [id number] 00:00:00* Test Item Value Reference Range Interpretation Comme nts CHOLESTEROL (test code = 2210) 142 MG/DL TRIGLYCERIDES (test code = 2232) 168 MG/DL HDL CHOLESTEROL (test code = 2220) 39 MG/DL CALC LDL CHOL (test code = 2237) 76 MG/DL RISK RATIO LDL/HDL (test cod e = 2238) 1.95 RATIO Db FlanaganCOMPREHENSIVE METABOLIC [id number] 00:00:00* Test Item Value Reference Range Interpretation Comme nts GLUCOSE (test code = 2217) 125 MG/DL BUN (test code = 2208) 15 MG/DL CREATININE (test code = 2214) 0.92 MG/DL eGFR (2020 CKD-EPI) (test co de = 24802) 77 ML/MIN/1.73 CALC BUN/CREAT (test code = 2235) 16 RATIO SODIUM (test code = 2231) 139 MEQ/L POTASSIUM (test code = 2228) 4.2 MEQ/L CHLORIDE (test code = 2215) 103 MEQ/L CARBON DIOXIDE (test code = 2206) 24 MEQ/L CALCIUM (test code = 2209) 9.4 MG/DL PROTEIN, TOTAL (test code = 2229) 6.6 G/DL ALBUMIN (test code = 2201) 4.2 G/DL CALC GLOBULIN (test code = 2240) 2.4 G/DL CALC A/G RATIO (test code = 2234) 1.8 RATIO BILIRUBIN, TOTAL (test code = 2207) 0.2 MG/DL ALKALINE PHOSPHATASE (test code = 2204) 102 U/L AST (test code = 2218) 33 U/L ALT (test code = 2219) 49 U/L Db FlanaganHEMOGLOBIN [id number] 00:00:00* Test Item Value Reference Range Interpretation Comme nts HEMOGLOBIN A1c (test code = 51983) 6.5 % bD FlanaganLIPID [id number] 00:00:00* Test Item Value Reference Range Interpretation Comme nts CHOLESTEROL (test code = 2210) 142 MG/DL TRIGLYCERIDES (test code = 2232) 168 MG/DL HDL CHOLESTEROL (test code = 2220) 39 MG/DL CALC LDL CHOL (test code = 2237) 76 MG/DL RISK RATIO LDL/HDL (test cod e = 2238) 1.95 RATIO Db FlanaganCOMPREHENSIVE METABOLIC [id number] 00:00:00* Test Item Value Reference Range Interpretation Comme nts GLUCOSE (test code = 2217) 125 MG/DL BUN (test code = 2208) 15 MG/DL CREATININE (test code = 2214) 0.92 MG/DL eGFR (2020 CKD-EPI) (test co de = 29830) 77 ML/MIN/1.73 CALC BUN/CREAT (test code = 2235) 16 RATIO SODIUM (test code = 2231) 139 MEQ/L POTASSIUM (test code = 2228) 4.2 MEQ/L CHLORIDE (test code = 2215) 103 MEQ/L CARBON DIOXIDE (test code = 2206) 24 MEQ/L CALCIUM (test code = 2209) 9.4 MG/DL PROTEIN, TOTAL (test code = 2229) 6.6 G/DL ALBUMIN (test code = 2201) 4.2 G/DL CALC GLOBULIN (test code = 2240) 2.4 G/DL CALC A/G RATIO (test code = 2234) 1.8 RATIO BILIRUBIN, TOTAL (test code = 2207) 0.2 MG/DL ALKALINE PHOSPHATASE (test code = 2204) 102 U/L AST (test code = 2218) 33 U/L ALT (test code = 2219) 49 U/L Db FlanaganHEMOGLOBIN [id number] 00:00:00* Test Item Value Reference Range Interpretation Comme nts HEMOGLOBIN A1c (test code = 19149) 6.5 % Db FlanaganLIPID [id number] 00:00:00* Test Item Value Reference Range Interpretation Comme nts CHOLESTEROL (test code = 2210) 142 MG/DL TRIGLYCERIDES (test code = 2232) 168 MG/DL HDL CHOLESTEROL (test code = 2220) 39 MG/DL CALC LDL CHOL (test code = 2237) 76 MG/DL RISK RATIO LDL/HDL (test cod e = 2238) 1.95 RATIO Db FlanaganCOMPREHENSIVE METABOLIC [id number] 00:00:00* Test Item Value Reference Range Interpretation Comme nts GLUCOSE (test code = 2217) 125 MG/DL BUN (test code = 2208) 15 MG/DL CREATININE (test code = 2214) 0.92 MG/DL eGFR (2020 CKD-EPI) (test co de = 11273) 77 ML/MIN/1.73 CALC BUN/CREAT (test code = 2235) 16 RATIO SODIUM (test code = 2231) 139 MEQ/L POTASSIUM (test code = 2228) 4.2 MEQ/L CHLORIDE (test code = 2215) 103 MEQ/L CARBON DIOXIDE (test code = 2206) 24 MEQ/L CALCIUM (test code = 2209) 9.4 MG/DL PROTEIN, TOTAL (test code = 2229) 6.6 G/DL ALBUMIN (test code = 2201) 4.2 G/DL CALC GLOBULIN (test code = 2240) 2.4 G/DL CALC A/G RATIO (test code = 2234) 1.8 RATIO BILIRUBIN, TOTAL (test code = 2207) 0.2 MG/DL ALKALINE PHOSPHATASE (test code = 2204) 102 U/L AST (test code = 2218) 33 U/L ALT (test code = 2219) 49 U/L Db FlanaganHEMOGLOBIN [id number] 00:00:00* Test Item Value Reference Range Interpretation Comme nts HEMOGLOBIN A1c (test code = 82216) 6.5 % Db FlanaganLIPID [id number] 00:00:00* Test Item Value Reference Range Interpretation Comme nts CHOLESTEROL (test code = 2210) 142 MG/DL TRIGLYCERIDES (test code = 2232) 168 MG/DL HDL CHOLESTEROL (test code = 2220) 39 MG/DL CALC LDL CHOL (test code = 2237) 76 MG/DL RISK RATIO LDL/HDL (test cod e = 2238) 1.95 RATIO Db FlanaganCOMPREHENSIVE METABOLIC [id number] 00:00:00* Test Item Value Reference Range Interpretation Comme nts GLUCOSE (test code = 2217) 125 MG/DL BUN (test code = 2208) 15 MG/DL CREATININE (test code = 2214) 0.92 MG/DL eGFR (2020 CKD-EPI) (test co de = 68250) 77 ML/MIN/1.73 CALC BUN/CREAT (test code = 2235) 16 RATIO SODIUM (test code = 223) 139 MEQ/L POTASSIUM (test code = 2228) 4.2 MEQ/L CHLORIDE (test code = 2215) 103 MEQ/L CARBON DIOXIDE (test code = 2206) 24 MEQ/L CALCIUM (test code = 2209) 9.4 MG/DL PROTEIN, TOTAL (test code = 2229) 6.6 G/DL ALBUMIN (test code = 2201) 4.2 G/DL CALC GLOBULIN (test code = 2240) 2.4 G/DL CALC A/G RATIO (test code = 2234) 1.8 RATIO BILIRUBIN, TOTAL (test code = 2207) 0.2 MG/DL ALKALINE PHOSPHATASE (test code = 2204) 102 U/L AST (test code = 2218) 33 U/L ALT (test code = 2219) 49 U/L Db FlanaganHEMOGLOBIN [id number] 00:00:00* Test Item Value Reference Range Interpretation Comme nts HEMOGLOBIN A1c (test code = 47962) 6.5 % Db FlanaganLIPID [id number] 00:00:00* Test Item Value Reference Range Interpretation Comme nts CHOLESTEROL (test code = 2210) 142 MG/DL TRIGLYCERIDES (test code = 2232) 168 MG/DL HDL CHOLESTEROL (test code = 2220) 39 MG/DL CALC LDL CHOL (test code = 2237) 76 MG/DL RISK RATIO LDL/HDL (test cod e = 2238) 1.95 RATIO Db FlanaganCOMPREHENSIVE METABOLIC [id number] 00:00:00* Test Item Value Reference Range Interpretation Comme nts GLUCOSE (test code = 2217) 125 MG/DL BUN (test code = 2208) 15 MG/DL CREATININE (test code = 2214) 0.92 MG/DL eGFR (2020 CKD-EPI) (test co de = 72405) 77 ML/MIN/1.73 CALC BUN/CREAT (test code = 2235) 16 RATIO SODIUM (test code = 2231) 139 MEQ/L POTASSIUM (test code = 2228) 4.2 MEQ/L CHLORIDE (test code = 2215) 103 MEQ/L CARBON DIOXIDE (test code = 2206) 24 MEQ/L CALCIUM (test code = 2209) 9.4 MG/DL PROTEIN, TOTAL (test code = 2229) 6.6 G/DL ALBUMIN (test code = 2201) 4.2 G/DL CALC GLOBULIN (test code = 2240) 2.4 G/DL CALC A/G RATIO (test code = 2234) 1.8 RATIO BILIRUBIN, TOTAL (test code = 2207) 0.2 MG/DL ALKALINE PHOSPHATASE (test code = 2204) 102 U/L AST (test code = 2218) 33 U/L ALT (test code = 2219) 49 U/L Db FlanaganHEMOGLOBIN [id number] 00:00:00* Test Item Value Reference Range Interpretation Comme nts HEMOGLOBIN A1c (test code = 38380) 6.5 % Db Munoz AustinLIPID [id number] 00:00:00* Test Item Value Reference Range Interpretation Comme nts CHOLESTEROL (test code = 2210) 142 MG/DL TRIGLYCERIDES (test code = 2232) 168 MG/DL HDL CHOLESTEROL (test code = 2220) 39 MG/DL CALC LDL CHOL (test code = 2237) 76 MG/DL RISK RATIO LDL/HDL (test cod e = 2238) 1.95 RATIO Db Munoz AustinLIPID [id number] 00:13:10* Test Item Value Reference Range Interpretation Comme nts CHOLESTEROL (test code = 2210) 170 MG/DL <200 TRIGLYCERIDES (test code = 2232) 342 MG/DL <150 H HDL CHOLESTEROL (test code = 2220) 37 MG/DL >39 L CALC LDL CHOL (test code = 2237) 87 MG/DL <100 NOTE: CALCULATED LDL IS BASED ON SEVERO-CUEVAS METHOD WHICHINCLUDES ADJUSTABLE TRIGLYCERIDE:VLDL CHOLESTEROL RATIO.THIS FACTOR VARIES BY MEASURED TRIGLYCERIDE AND NON-HDLCHOLESTEROL CONCENTRATIONS WITH INCREASED CALCULATED LDL SEENIN HIGHER TRIGLYCERIDE OR LOWER NON-HDL SPECIMENS. FOR MOREINFORMATION, SEE CLIENT ANNOUNCEMENT AT [email or web address] RISK RATIO LDL/HDL (test code = 2237) 2.35 RATIO <3.22 COMPREHENSIVE METABOLIC [id number] 00:13:10* Test Item Value Reference Range Interpretation Comme nts GLUCOSE (test code = 2217) 107 MG/DL 70-99 H BUN (test code = 2207) 17 MG/DL 6-20 CREATININE (test code = 221) 1.26 MG/DL 0.60-1.30 eGFR (2020 CKD-EPI) (test code = 25405) 53 ML/MIN/1.73 >60 L The NKF-ASN Taskforc e recommends use of Cystatin C to confirm eGFR inadults at risk for CKD. [facility] offers eGFR with Cystatin C-Creatinineusing the 2020 CKD-EPI eGFR_creat-cystat equation (order code 3057) toincrease the accuracy of estimated GFR. For more information, contactyour accounts manager or see announcement [email or web address] CALC BUN/CREAT (test code = 2234) 13 RATIO 6-28 SODIUM (test code = 223) 142 MEQ/L 133-146 POTASSIUM (test code = 2228) 4.7 MEQ/L 3.5-5.4 CHLORIDE (test code = 2215) 103 MEQ/L 95-107 CARBON DIOXIDE (test code = 2206) 25 MEQ/L 19-31 CALCIUM (test code = 2209) 9.9 MG/DL 8.5-10.5 PROTEIN, TOTAL (test code = 222) 6.6 G/DL 6.1-8.3 ALBUMIN (test code = 2201) 4.2 G/DL 3.5-5.2 CALC GLOBULIN (test code = 2240) 2.4 G/DL 1.9-3.7 CALC A/G RATIO (test code = 2234) 1.8 RATIO 1.0-2.6 BILIRUBIN, TOTAL (test code = 2207) <0.2 MG/DL See_Comment [Automated me ssage] The system which generated this result transmitted reference range: <=1.2. The reference range was not used to interpret this result as normal/abnormal. ALKALINE PHOSPHATASE (test code = 2204) 96 U/L 40-120 AST (test code = 2218) 20 U/L 9-40 ALT (test code = 2219) 20 U/L 5-40 [facility] has impo rtant pathology staff changes effective 05/08/2022. New pathology staff will provide uninterrupted, excellent patient care and clinical consultation. See URL: [email or web address]. UNLESS OTHERWISE INDICATED, ALL TESTING PERFORMED AT [facility] [address] [place] [id number] CRIER: PIO BURDICK M.D. [place] NUMBER [id number] [facility] [place]. [id number] COMPREHENSIVE METABOLIC [id number] 00:00:00* Test Item Value Reference Range Interpretation Comme nts GLUCOSE (test code = 2217) 107 MG/DL BUN (test code = 2208) 17 MG/DL CREATININE (test code = 2214) 1.26 MG/DL eGFR (2020 CKD-EPI) (test co de = 50056) 53 ML/MIN/1.73 CALC BUN/CREAT (test code = 2235) 13 RATIO SODIUM (test code = 2231) 142 MEQ/L POTASSIUM (test code = 2228) 4.7 MEQ/L CHLORIDE (test code = 2215) 103 MEQ/L CARBON DIOXIDE (test code = 2206) 25 MEQ/L CALCIUM (test code = 2209) 9.9 MG/DL PROTEIN, TOTAL (test code = 2229) 6.6 G/DL ALBUMIN (test code = 2201) 4.2 G/DL CALC GLOBULIN (test code = 2240) 2.4 G/DL CALC A/G RATIO (test code = 2234) 1.8 RATIO BILIRUBIN, TOTAL (test code = 2207) <0.2 MG/DL ALKALINE PHOSPHATASE (test code = 2204) 96 U/L AST (test code = 2218) 20 U/L ALT (test code = 2219) 20 U/L Db FlanaganLIPID [id number] 00:00:00* Test Item Value Reference Range Interpretation Comme nts CHOLESTEROL (test code = 2210) 170 MG/DL TRIGLYCERIDES (test code = 2232) 342 MG/DL HDL CHOLESTEROL (test code = 2220) 37 MG/DL CALC LDL CHOL (test code = 2237) 87 MG/DL RISK RATIO LDL/HDL (test cod e = 2238) 2.35 RATIO Db FlanaganCOMPREHENSIVE METABOLIC [id number] 00:00:00* Test Item Value Reference Range Interpretation Comme nts GLUCOSE (test code = 2217) 107 MG/DL BUN (test code = 2208) 17 MG/DL CREATININE (test code = 2214) 1.26 MG/DL eGFR (2020 CKD-EPI) (test co de = 95923) 53 ML/MIN/1.73 CALC BUN/CREAT (test code = 2235) 13 RATIO SODIUM (test code = 2231) 142 MEQ/L POTASSIUM (test code = 2228) 4.7 MEQ/L CHLORIDE (test code = 2215) 103 MEQ/L CARBON DIOXIDE (test code = 2206) 25 MEQ/L CALCIUM (test code = 2209) 9.9 MG/DL PROTEIN, TOTAL (test code = 2229) 6.6 G/DL ALBUMIN (test code = 2201) 4.2 G/DL CALC GLOBULIN (test code = 2240) 2.4 G/DL CALC A/G RATIO (test code = 2234) 1.8 RATIO BILIRUBIN, TOTAL (test code = 2207) <0.2 MG/DL ALKALINE PHOSPHATASE (test code = 2204) 96 U/L AST (test code = 2218) 20 U/L ALT (test code = 2219) 20 U/L Db Munoz AustinLIPID [id number] 00:00:00* Test Item Value Reference Range Interpretation Comme nts CHOLESTEROL (test code = 2210) 170 MG/DL TRIGLYCERIDES (test code = 2232) 342 MG/DL HDL CHOLESTEROL (test code = 2220) 37 MG/DL CALC LDL CHOL (test code = 2237) 87 MG/DL RISK RATIO LDL/HDL (test cod e = 2238) 2.35 RATIO Db FlanaganCOMPREHENSIVE METABOLIC [id number] 00:00:00* Test Item Value Reference Range Interpretation Comme nts GLUCOSE (test code = 2217) 107 MG/DL BUN (test code = 2208) 17 MG/DL CREATININE (test code = 2214) 1.26 MG/DL eGFR (2020 CKD-EPI) (test co de = 64454) 53 ML/MIN/1.73 CALC BUN/CREAT (test code = 2235) 13 RATIO SODIUM (test code = 2231) 142 MEQ/L POTASSIUM (test code = 2228) 4.7 MEQ/L CHLORIDE (test code = 2215) 103 MEQ/L CARBON DIOXIDE (test code = 2206) 25 MEQ/L CALCIUM (test code = 2209) 9.9 MG/DL PROTEIN, TOTAL (test code = 2229) 6.6 G/DL ALBUMIN (test code = 2201) 4.2 G/DL CALC GLOBULIN (test code = 2240) 2.4 G/DL CALC A/G RATIO (test code = 2234) 1.8 RATIO BILIRUBIN, TOTAL (test code = 2207) <0.2 MG/DL ALKALINE PHOSPHATASE (test code = 2204) 96 U/L AST (test code = 2218) 20 U/L ALT (test code = 2219) 20 U/L Db Tammy CovertLIPID [id number] 00:00:00* Test Item Value Reference Range Interpretation Comme nts CHOLESTEROL (test code = 2210) 170 MG/DL TRIGLYCERIDES (test code = 2232) 342 MG/DL HDL CHOLESTEROL (test code = 2220) 37 MG/DL CALC LDL CHOL (test code = 2237) 87 MG/DL RISK RATIO LDL/HDL (test cod e = 2238) 2.35 RATIO Db Munoz PanchitoCOMPREHENSIVE METABOLIC [id number] 00:00:00* Test Item Value Reference Range Interpretation Comme nts GLUCOSE (test code = 2217) 107 MG/DL BUN (test code = 2208) 17 MG/DL CREATININE (test code = 2214) 1.26 MG/DL eGFR (2020 CKD-EPI) (test co de = 26604) 53 ML/MIN/1.73 CALC BUN/CREAT (test code = 2235) 13 RATIO SODIUM (test code = 2231) 142 MEQ/L POTASSIUM (test code = 2228) 4.7 MEQ/L CHLORIDE (test code = 2215) 103 MEQ/L CARBON DIOXIDE (test code = 2206) 25 MEQ/L CALCIUM (test code = 2209) 9.9 MG/DL PROTEIN, TOTAL (test code = 2229) 6.6 G/DL ALBUMIN (test code = 2201) 4.2 G/DL CALC GLOBULIN (test code = 2240) 2.4 G/DL CALC A/G RATIO (test code = 2234) 1.8 RATIO BILIRUBIN, TOTAL (test code = 2207) <0.2 MG/DL ALKALINE PHOSPHATASE (test code = 2204) 96 U/L AST (test code = 2218) 20 U/L ALT (test code = 2219) 20 U/L Db Munoz AustinLIPID [id number] 00:00:00* Test Item Value Reference Range Interpretation Comme nts CHOLESTEROL (test code = 2210) 170 MG/DL TRIGLYCERIDES (test code = 2232) 342 MG/DL HDL CHOLESTEROL (test code = 2220) 37 MG/DL CALC LDL CHOL (test code = 2237) 87 MG/DL RISK RATIO LDL/HDL (test cod e = 2238) 2.35 RATIO Db F PanchitoCOMPREHENSIVE METABOLIC [id number] 00:00:00* Test Item Value Reference Range Interpretation Comme nts GLUCOSE (test code = 2217) 107 MG/DL BUN (test code = 2208) 17 MG/DL CREATININE (test code = 2214) 1.26 MG/DL eGFR (2020 CKD-EPI) (test co de = 47842) 53 ML/MIN/1.73 CALC BUN/CREAT (test code = 2235) 13 RATIO SODIUM (test code = 2231) 142 MEQ/L POTASSIUM (test code = 2228) 4.7 MEQ/L CHLORIDE (test code = 2215) 103 MEQ/L CARBON DIOXIDE (test code = 2206) 25 MEQ/L CALCIUM (test code = 2209) 9.9 MG/DL PROTEIN, TOTAL (test code = 2229) 6.6 G/DL ALBUMIN (test code = 2201) 4.2 G/DL CALC GLOBULIN (test code = 2240) 2.4 G/DL CALC A/G RATIO (test code = 2234) 1.8 RATIO BILIRUBIN, TOTAL (test code = 2207) <0.2 MG/DL ALKALINE PHOSPHATASE (test code = 2204) 96 U/L AST (test code = 2218) 20 U/L ALT (test code = 2219) 20 U/L Db Munoz AustinLIPID [id number] 00:00:00* Test Item Value Reference Range Interpretation Comme nts CHOLESTEROL (test code = 2210) 170 MG/DL TRIGLYCERIDES (test code = 2232) 342 MG/DL HDL CHOLESTEROL (test code = 2220) 37 MG/DL CALC LDL CHOL (test code = 2237) 87 MG/DL RISK RATIO LDL/HDL (test cod e = 2238) 2.35 RATIO Db FlanaganCOMPREHENSIVE METABOLIC [id number] 00:00:00* Test Item Value Reference Range Interpretation Comme nts GLUCOSE (test code = 2217) 107 MG/DL BUN (test code = 2208) 17 MG/DL CREATININE (test code = 2214) 1.26 MG/DL eGFR (2020 CKD-EPI) (test co de = 43496) 53 ML/MIN/1.73 CALC BUN/CREAT (test code = 2235) 13 RATIO SODIUM (test code = 2231) 142 MEQ/L POTASSIUM (test code = 2228) 4.7 MEQ/L CHLORIDE (test code = 2215) 103 MEQ/L CARBON DIOXIDE (test code = 2206) 25 MEQ/L CALCIUM (test code = 2209) 9.9 MG/DL PROTEIN, TOTAL (test code = 2229) 6.6 G/DL ALBUMIN (test code = 2201) 4.2 G/DL CALC GLOBULIN (test code = 2240) 2.4 G/DL CALC A/G RATIO (test code = 2234) 1.8 RATIO BILIRUBIN, TOTAL (test code = 2207) <0.2 MG/DL ALKALINE PHOSPHATASE (test code = 2204) 96 U/L AST (test code = 2218) 20 U/L ALT (test code = 2219) 20 U/L Db Munoz AustinLIPID [id number] 00:00:00* Test Item Value Reference Range Interpretation Comme nts CHOLESTEROL (test code = 2210) 170 MG/DL TRIGLYCERIDES (test code = 2232) 342 MG/DL HDL CHOLESTEROL (test code = 2220) 37 MG/DL CALC LDL CHOL (test code = 2237) 87 MG/DL RISK RATIO LDL/HDL (test cod e = 2238) 2.35 RATIO Db FlanaganCOMPREHENSIVE METABOLIC [id number] 00:00:00* Test Item Value Reference Range Interpretation Comme nts GLUCOSE (test code = 2217) 107 MG/DL BUN (test code = 2208) 17 MG/DL CREATININE (test code = 2214) 1.26 MG/DL eGFR (2020 CKD-EPI) (test co de = 44115) 53 ML/MIN/1.73 CALC BUN/CREAT (test code = 2235) 13 RATIO SODIUM (test code = 2231) 142 MEQ/L POTASSIUM (test code = 2228) 4.7 MEQ/L CHLORIDE (test code = 2215) 103 MEQ/L CARBON DIOXIDE (test code = 2206) 25 MEQ/L CALCIUM (test code = 2209) 9.9 MG/DL PROTEIN, TOTAL (test code = 2229) 6.6 G/DL ALBUMIN (test code = 2201) 4.2 G/DL CALC GLOBULIN (test code = 2240) 2.4 G/DL CALC A/G RATIO (test code = 2234) 1.8 RATIO BILIRUBIN, TOTAL (test code = 2207) <0.2 MG/DL ALKALINE PHOSPHATASE (test code = 2204) 96 U/L AST (test code = 2218) 20 U/L ALT (test code = 2219) 20 U/L Db FlanaganLIPID [id number] 00:00:00* Test Item Value Reference Range Interpretation Comme nts CHOLESTEROL (test code = 2210) 170 MG/DL TRIGLYCERIDES (test code = 2232) 342 MG/DL HDL CHOLESTEROL (test code = 2220) 37 MG/DL CALC LDL CHOL (test code = 2237) 87 MG/DL RISK RATIO LDL/HDL (test cod e = 2238) 2.35 RATIO Db Munoz PanchitoHEMOGLOBIN [id number] 04:30:51* Test Item Value Reference Range Interpretation Comme nts HEMOGLOBIN A1c (test code = 76372) 6.2 % 4.2-5.6 H [employer] GUIDELINES FOR HGB A1C: [...] ETC.). CONSIDER ALTERNATE TESTING OR LABORATORY CONSULTATION. HEMOGLOBIN [id number] 00:00:00* Test Item Value Reference Range Interpretation Comme nts HEMOGLOBIN A1c (test code = 32571) 6.2 % Db Munoz AustinHEMOGLOBIN [id number] 00:00:00* Test Item Value Reference Range Interpretation Comme nts HEMOGLOBIN A1c (test code = 72475) 6.2 % Db Munoz AustinHEMOGLOBIN [id number] 00:00:00* Test Item Value Reference Range Interpretation Comme nts HEMOGLOBIN A1c (test code = 42367) 6.2 % Db Munoz AustinHEMOGLOBIN [id number] 00:00:00* Test Item Value Reference Range Interpretation Comme nts HEMOGLOBIN A1c (test code = 51229) 6.2 % Db Munoz AustinHEMOGLOBIN [id number] 00:00:00* Test Item Value Reference Range Interpretation Comme nts HEMOGLOBIN A1c (test code = 72810) 6.2 % Db Munoz AustinHEMOGLOBIN [id number] 00:00:00* Test Item Value Reference Range Interpretation Comme nts HEMOGLOBIN A1c (test code = 28262) 6.2 % Db Munoz AustinHEMOGLOBIN [id number] 00:00:00* Test Item Value Reference Range Interpretation Comme nts HEMOGLOBIN A1c (test code = 75778) 6.2 % Db Munoz AustinLIPID [id number] 00:00:00* Test Item Value Reference Range Interpretation Comme nts CHOLESTEROL (test code = 2210) 305 MG/DL TRIGLYCERIDES (test code = 2232) 601 MG/DL HDL CHOLESTEROL (test code = 2220) 44 MG/DL CALC LDL CHOL (test code = 2237) (NOTE) MG/DL RISK RATIO LDL/HDL (test cod e = 2238) (NOTE) RATIO Db Munoz AustinHEMOGLOBIN [id number] 00:00:00* Test Item Value Reference Range Interpretation Comme nts HEMOGLOBIN A1c (test code = 25435) 6.2 % Db Munoz AustinLIPID [id number] 00:00:00* Test Item Value Reference Range Interpretation Comme nts CHOLESTEROL (test code = 2210) 305 MG/DL TRIGLYCERIDES (test code = 2232) 601 MG/DL HDL CHOLESTEROL (test code = 2220) 44 MG/DL CALC LDL CHOL (test code = 2237) (NOTE) MG/DL RISK RATIO LDL/HDL (test cod e = 2238) (NOTE) RATIO Db Munoz AustinHEMOGLOBIN [id number] 00:00:00* Test Item Value Reference Range Interpretation Comme nts HEMOGLOBIN A1c (test code = 96561) 6.2 % Db Munoz AustinLIPID [id number] 00:00:00* Test Item Value Reference Range Interpretation Comme nts CHOLESTEROL (test code = 2210) 305 MG/DL TRIGLYCERIDES (test code = 2232) 601 MG/DL HDL CHOLESTEROL (test code = 2220) 44 MG/DL CALC LDL CHOL (test code = 2237) (NOTE) MG/DL RISK RATIO LDL/HDL (test cod e = 2238) (NOTE) RATIO Db Munoz AustinHEMOGLOBIN [id number] 00:00:00* Test Item Value Reference Range Interpretation Comme nts HEMOGLOBIN A1c (test code = 54007) 6.2 % Db Munoz AustinLIPID [id number] 00:00:00* Test Item Value Reference Range Interpretation Comme nts CHOLESTEROL (test code = 2210) 305 MG/DL TRIGLYCERIDES (test code = 2232) 601 MG/DL HDL CHOLESTEROL (test code = 2220) 44 MG/DL CALC LDL CHOL (test code = 2237) (NOTE) MG/DL RISK RATIO LDL/HDL (test cod e = 2238) (NOTE) RATIO Db Munoz AustinHEMOGLOBIN [id number] 00:00:00* Test Item Value Reference Range Interpretation Comme nts HEMOGLOBIN A1c (test code = 33475) 6.2 % Db Munoz AustinLIPID [id number] 00:00:00* Test Item Value Reference Range Interpretation Comme nts CHOLESTEROL (test code = 2210) 305 MG/DL TRIGLYCERIDES (test code = 2232) 601 MG/DL HDL CHOLESTEROL (test code = 2220) 44 MG/DL CALC LDL CHOL (test code = 2237) (NOTE) MG/DL RISK RATIO LDL/HDL (test cod e = 2238) (NOTE) RATIO Db Munoz AustinHEMOGLOBIN [id number] 00:00:00* Test Item Value Reference Range Interpretation Comme nts HEMOGLOBIN A1c (test code = 08204) 6.2 % Db Munoz AustinLIPID [id number] 00:00:00* Test Item Value Reference Range Interpretation Comme nts CHOLESTEROL (test code = 2210) 305 MG/DL TRIGLYCERIDES (test code = 2232) 601 MG/DL HDL CHOLESTEROL (test code = 2220) 44 MG/DL CALC LDL CHOL (test code = 2237) (NOTE) MG/DL RISK RATIO LDL/HDL (test cod e = 2238) (NOTE) RATIO Db Munoz AustinHEMOGLOBIN [id number] 00:00:00* Test Item Value Reference Range Interpretation Comme nts HEMOGLOBIN A1c (test code = 05843) 6.2 % Db Munoz AustinLIPID [id number] 00:00:00* Test Item Value Reference Range Interpretation Comme nts CHOLESTEROL (test code = 2210) 305 MG/DL TRIGLYCERIDES (test code = 2232) 601 MG/DL HDL CHOLESTEROL (test code = 2220) 44 MG/DL CALC LDL CHOL (test code = 2237) (NOTE) MG/DL RISK RATIO LDL/HDL (test cod e = 2238) (NOTE) RATIO Db Munoz AustinHEMOGLOBIN [id number] 00:00:00* Test Item Value Reference Range Interpretation Comme nts HEMOGLOBIN A1c (test code = 55659) 6.2 % Db Munoz AustinVAGINAL PATHOGENS DNA [id number] 14:33:43* Test Item Value Reference Range Interpretation Comme nts REINA SPECIES (test code = 34182) NEGATIVE NEGATIVE G. VAGINALIS (test code = 62419) POSITIVE NEGATIVE A T. VAGINALIS (test code = 27310) NEGATIVE NEGATIVE UNLESS OTHERWISE INDICATED, ALL TESTING PER[facility] [address] [place] [address] [address] CRIER: PIO BURDICK M.D. CLIA NUMBER [id number] [facility] [place]. [id number] VAGINAL PATHOGENS DNA [id number] 00:00:00* Test Item Value Reference Range Interpretation Comme nts REINA SPECIES (test code = 25813) NEGATIVE G. VAGINALIS (test code = 82188) POSITIVE T. VAGINALIS (test code = 75020) NEGATIVE Db Munoz AustinVAGINAL PATHOGENS DNA [id number] 00:00:00* Test Item Value Reference Range Interpretation Comme nts REINA SPECIES (test code = 51756) NEGATIVE G. VAGINALIS (test code = 42724) POSITIVE T. VAGINALIS (test code = 45150) NEGATIVE Db Munoz AustinVAGINAL PATHOGENS DNA [id number] 00:00:00* Test Item Value Reference Range Interpretation Comme nts REINA SPECIES (test code = 46716) NEGATIVE G. VAGINALIS (test code = 24499) POSITIVE T. VAGINALIS (test code = 97631) NEGATIVE Db F AustinVAGINAL PATHOGENS DNA [id number] 00:00:00* Test Item Value Reference Range Interpretation Comme nts REINA SPECIES (test code = 58681) NEGATIVE G. VAGINALIS (test code = 67937) POSITIVE T. VAGINALIS (test code = 91873) NEGATIVE Db F AustinVAGINAL PATHOGENS DNA [id number] 00:00:00* Test Item Value Reference Range Interpretation Comme nts REINA SPECIES (test code = 08285) NEGATIVE G. VAGINALIS (test code = 95489) POSITIVE T. VAGINALIS (test code = 32198) NEGATIVE Db Munoz AustinVAGINAL PATHOGENS DNA [id number] 00:00:00* Test Item Value Reference Range Interpretation Comme nts REINA SPECIES (test code = 27703) NEGATIVE G. VAGINALIS (test code = 00305) POSITIVE T. VAGINALIS (test code = 60734) NEGATIVE Db F AustinVAGINAL PATHOGENS DNA [id number] 00:00:00* Test Item Value Reference Range Interpretation Comme nts REINA SPECIES (test code = 56679) NEGATIVE G. VAGINALIS (test code = 89517) POSITIVE T. VAGINALIS (test code = 67932) NEGATIVE Db Munoz CovertCOMPREHENSIVE METABOLIC [id number] 05:48:51* Test Item Value Reference Range Interpretation Comme nts GLUCOSE (test code = 2217) 139 MG/DL 70-99 H BUN (test code = 2208) 17 MG/DL 6-20 CREATININE (test code = 2214) 1.09 MG/DL 0.60-1.30 eGFR (2020 CKD-EPI) (test code = 16947) 63 ML/MIN/1.73 >60 CALC BUN/CREAT (test code = 2235) 16 RATIO 6-28 SODIUM (test code = 2231) 140 MEQ/L 133-146 POTASSIUM (test code = 2228) 4.2 MEQ/L 3.5-5.4 CHLORIDE (test code = 2215) 104 MEQ/L 95-107 CARBON DIOXIDE (test code = 2206) 24 MEQ/L 19-31 CALCIUM (test code = 2209) 9.6 MG/DL 8.5-10.5 PROTEIN, TOTAL (test code = 2229) 7.2 G/DL 6.1-8.3 ALBUMIN (test code = 2201) 4.4 G/DL 3.5-5.2 CALC GLOBULIN (test code = 2240) 2.8 G/DL 1.9-3.7 CALC A/G RATIO (test code = 2234) 1.6 RATIO 1.0-2.6 BILIRUBIN, TOTAL (test code = 2207) <0.2 MG/DL See_Comment [Automated me ssage] The system which generated this result transmitted reference range: <=1.2. The reference range was not used to interpret this result as normal/abnormal. ALKALINE PHOSPHATASE (test code = 2203) 112 U/L 40-118 AST (test code = 2218) 19 U/L 9-40 ALT (test code = 2219) 23 U/L 5-40 UNLESS OTHERWISE INDICATED, ALL TESTING PERFORMED [facility] [address] [place] [address] COURT CRIER: PIO BURDICK M.D. CLIA NUMBER [id number] [facility] [place]. [id number] LIPID [id number] 05:48:51* Test Item Value Reference Range Interpretation Comme nts CHOLESTEROL (test code = 2210) 298 MG/DL <200 H TRIGLYCERIDES (test code = 2232) 541 MG/DL <150 H HDL CHOLESTEROL (test code = 2220) 36 MG/DL >39 L CALC LDL CHOL (test code = 2237) (NOTE) MG/DL <100 UNABLE TO CALCUL ATE [...] SPECIMENS. FOR MOREINFORMATION, SEE CLIENT ANNOUNCEMENT AT [email or web address] CalcLDL-C RISK RATIO LDL/HDL (test code = 2238) (NOTE) RATIO <3.22 UNABLE TO ESVIN CULATE HEMOGLOBIN [id number] 03:38:25* Test Item Value Reference Range Interpretation Comme nts HEMOGLOBIN A1c (test code = 78488) 6.5 % 4.2-5.6 H [employer] GUIDELINES FOR HGB A1C: [...] ETC.). CONSIDER ALTERNATE TESTING OR LABORATORY CONSULTATION. COMPREHENSIVE METABOLIC [id number] 00:00:00* Test Item Value Reference Range Interpretation Comme nts GLUCOSE (test code = 2217) 139 MG/DL BUN (test code = 2208) 17 MG/DL CREATININE (test code = 2214) 1.09 MG/DL eGFR (2020 CKD-EPI) (test co de = 70244) 63 ML/MIN/1.73 CALC BUN/CREAT (test code = 2235) 16 RATIO SODIUM (test code = 2231) 140 MEQ/L POTASSIUM (test code = 2228) 4.2 MEQ/L CHLORIDE (test code = 2215) 104 MEQ/L CARBON DIOXIDE (test code = 2206) 24 MEQ/L CALCIUM (test code = 2209) 9.6 MG/DL PROTEIN, TOTAL (test code = 2229) 7.2 G/DL ALBUMIN (test code = 2201) 4.4 G/DL CALC GLOBULIN (test code = 2240) 2.8 G/DL CALC A/G RATIO (test code = 2234) 1.6 RATIO BILIRUBIN, TOTAL (test code = 2207) <0.2 MG/DL ALKALINE PHOSPHATASE (test code = 2204) 112 U/L AST (test code = 2218) 19 U/L ALT (test code = 2219) 23 U/L Db Tammy AustinLIPID [id number] 00:00:00* Test Item Value Reference Range Interpretation Comme nts CHOLESTEROL (test code = 2210) 298 MG/DL TRIGLYCERIDES (test code = 2232) 541 MG/DL HDL CHOLESTEROL (test code = 2220) 36 MG/DL CALC LDL CHOL (test code = 2237) (NOTE) MG/DL RISK RATIO LDL/HDL (test cod e = 2238) (NOTE) RATIO Db Munoz AustinHEMOGLOBIN [id number] 00:00:00* Test Item Value Reference Range Interpretation Comme nts HEMOGLOBIN A1c (test code = 34351) 6.5 % Db FlanaganCOMPREHENSIVE METABOLIC [id number] 00:00:00* Test Item Value Reference Range Interpretation Comme nts GLUCOSE (test code = 2217) 139 MG/DL BUN (test code = 2208) 17 MG/DL CREATININE (test code = 2214) 1.09 MG/DL eGFR (2020 CKD-EPI) (test co de = 35790) 63 ML/MIN/1.73 CALC BUN/CREAT (test code = 2235) 16 RATIO SODIUM (test code = 2231) 140 MEQ/L POTASSIUM (test code = 2228) 4.2 MEQ/L CHLORIDE (test code = 2215) 104 MEQ/L CARBON DIOXIDE (test code = 2206) 24 MEQ/L CALCIUM (test code = 2209) 9.6 MG/DL PROTEIN, TOTAL (test code = 2229) 7.2 G/DL ALBUMIN (test code = 2201) 4.4 G/DL CALC GLOBULIN (test code = 2240) 2.8 G/DL CALC A/G RATIO (test code = 2234) 1.6 RATIO BILIRUBIN, TOTAL (test code = 2207) <0.2 MG/DL ALKALINE PHOSPHATASE (test code = 2204) 112 U/L AST (test code = 2218) 19 U/L ALT (test code = 2219) 23 U/L Db Munoz AustinLIPID [id number] 00:00:00* Test Item Value Reference Range Interpretation Comme nts CHOLESTEROL (test code = 2210) 298 MG/DL TRIGLYCERIDES (test code = 2232) 541 MG/DL HDL CHOLESTEROL (test code = 2220) 36 MG/DL CALC LDL CHOL (test code = 2237) (NOTE) MG/DL RISK RATIO LDL/HDL (test cod e = 2238) (NOTE) RATIO Db Munoz AustinHEMOGLOBIN [id number] 00:00:00* Test Item Value Reference Range Interpretation Comme nts HEMOGLOBIN A1c (test code = 75220) 6.5 % Db Munoz AustinCOMPREHENSIVE METABOLIC [id number] 00:00:00* Test Item Value Reference Range Interpretation Comme nts GLUCOSE (test code = 2217) 139 MG/DL BUN (test code = 2208) 17 MG/DL CREATININE (test code = 2214) 1.09 MG/DL eGFR (2020 CKD-EPI) (test co de = 61756) 63 ML/MIN/1.73 CALC BUN/CREAT (test code = 2235) 16 RATIO SODIUM (test code = 2231) 140 MEQ/L POTASSIUM (test code = 2228) 4.2 MEQ/L CHLORIDE (test code = 2215) 104 MEQ/L CARBON DIOXIDE (test code = 2206) 24 MEQ/L CALCIUM (test code = 2209) 9.6 MG/DL PROTEIN, TOTAL (test code = 2229) 7.2 G/DL ALBUMIN (test code = 2201) 4.4 G/DL CALC GLOBULIN (test code = 2240) 2.8 G/DL CALC A/G RATIO (test code = 2234) 1.6 RATIO BILIRUBIN, TOTAL (test code = 2207) <0.2 MG/DL ALKALINE PHOSPHATASE (test code = 2204) 112 U/L AST (test code = 2218) 19 U/L ALT (test code = 2219) 23 U/L Db Munoz AustinLIPID [id number] 00:00:00* Test Item Value Reference Range Interpretation Comme nts CHOLESTEROL (test code = 2210) 298 MG/DL TRIGLYCERIDES (test code = 2232) 541 MG/DL HDL CHOLESTEROL (test code = 2220) 36 MG/DL CALC LDL CHOL (test code = 2237) (NOTE) MG/DL RISK RATIO LDL/HDL (test cod e = 2238) (NOTE) RATIO Db Munoz AustinHEMOGLOBIN [id number] 00:00:00* Test Item Value Reference Range Interpretation Comme nts HEMOGLOBIN A1c (test code = 67290) 6.5 % Db Munoz AustinCOMPREHENSIVE METABOLIC [id number] 00:00:00* Test Item Value Reference Range Interpretation Comme nts GLUCOSE (test code = 2217) 139 MG/DL BUN (test code = 2208) 17 MG/DL CREATININE (test code = 2214) 1.09 MG/DL eGFR (2020 CKD-EPI) (test co de = 51265) 63 ML/MIN/1.73 CALC BUN/CREAT (test code = 2235) 16 RATIO SODIUM (test code = 2231) 140 MEQ/L POTASSIUM (test code = 2228) 4.2 MEQ/L CHLORIDE (test code = 2215) 104 MEQ/L CARBON DIOXIDE (test code = 2206) 24 MEQ/L CALCIUM (test code = 2209) 9.6 MG/DL PROTEIN, TOTAL (test code = 2229) 7.2 G/DL ALBUMIN (test code = 2201) 4.4 G/DL CALC GLOBULIN (test code = 2240) 2.8 G/DL CALC A/G RATIO (test code = 2234) 1.6 RATIO BILIRUBIN, TOTAL (test code = 2207) <0.2 MG/DL ALKALINE PHOSPHATASE (test code = 2204) 112 U/L AST (test code = 2218) 19 U/L ALT (test code = 2219) 23 U/L Db Munoz AustinLIPID [id number] 00:00:00* Test Item Value Reference Range Interpretation Comme nts CHOLESTEROL (test code = 2210) 298 MG/DL TRIGLYCERIDES (test code = 2232) 541 MG/DL HDL CHOLESTEROL (test code = 2220) 36 MG/DL CALC LDL CHOL (test code = 2237) (NOTE) MG/DL RISK RATIO LDL/HDL (test cod e = 2238) (NOTE) RATIO Db FlanaganHEMOGLOBIN [id number] 00:00:00* Test Item Value Reference Range Interpretation Comme nts HEMOGLOBIN A1c (test code = 07064) 6.5 % Db FlanaganCOMPREHENSIVE METABOLIC [id number] 00:00:00* Test Item Value Reference Range Interpretation Comme nts GLUCOSE (test code = 2217) 139 MG/DL BUN (test code = 2208) 17 MG/DL CREATININE (test code = 2214) 1.09 MG/DL eGFR (2020 CKD-EPI) (test co de = 50432) 63 ML/MIN/1.73 CALC BUN/CREAT (test code = 2235) 16 RATIO SODIUM (test code = 2231) 140 MEQ/L POTASSIUM (test code = 2228) 4.2 MEQ/L CHLORIDE (test code = 2215) 104 MEQ/L CARBON DIOXIDE (test code = 2206) 24 MEQ/L CALCIUM (test code = 2209) 9.6 MG/DL PROTEIN, TOTAL (test code = 2229) 7.2 G/DL ALBUMIN (test code = 2201) 4.4 G/DL CALC GLOBULIN (test code = 2240) 2.8 G/DL CALC A/G RATIO (test code = 2234) 1.6 RATIO BILIRUBIN, TOTAL (test code = 2207) <0.2 MG/DL ALKALINE PHOSPHATASE (test code = 2204) 112 U/L AST (test code = 2218) 19 U/L ALT (test code = 2219) 23 U/L Db FlanaganLIPID [id number] 00:00:00* Test Item Value Reference Range Interpretation Comme nts CHOLESTEROL (test code = 2210) 298 MG/DL TRIGLYCERIDES (test code = 2232) 541 MG/DL HDL CHOLESTEROL (test code = 2220) 36 MG/DL CALC LDL CHOL (test code = 2237) (NOTE) MG/DL RISK RATIO LDL/HDL (test cod e = 2238) (NOTE) RATIO Db FlanaganHEMOGLOBIN [id number] 00:00:00* Test Item Value Reference Range Interpretation Comme nts HEMOGLOBIN A1c (test code = 39056) 6.5 % Db FlanaganCOMPREHENSIVE METABOLIC [id number] 00:00:00* Test Item Value Reference Range Interpretation Comme nts GLUCOSE (test code = 2217) 139 MG/DL BUN (test code = 2208) 17 MG/DL CREATININE (test code = 2214) 1.09 MG/DL eGFR (2020 CKD-EPI) (test co de = 40498) 63 ML/MIN/1.73 CALC BUN/CREAT (test code = 2235) 16 RATIO SODIUM (test code = 2231) 140 MEQ/L POTASSIUM (test code = 2228) 4.2 MEQ/L CHLORIDE (test code = 2215) 104 MEQ/L CARBON DIOXIDE (test code = 2206) 24 MEQ/L CALCIUM (test code = 2209) 9.6 MG/DL PROTEIN, TOTAL (test code = 2229) 7.2 G/DL ALBUMIN (test code = 2201) 4.4 G/DL CALC GLOBULIN (test code = 2240) 2.8 G/DL CALC A/G RATIO (test code = 2234) 1.6 RATIO BILIRUBIN, TOTAL (test code = 2207) <0.2 MG/DL ALKALINE PHOSPHATASE (test code = 2204) 112 U/L AST (test code = 2218) 19 U/L ALT (test code = 2219) 23 U/L Db Munoz AustinLIPID [id number] 00:00:00* Test Item Value Reference Range Interpretation Comme nts CHOLESTEROL (test code = 2210) 298 MG/DL TRIGLYCERIDES (test code = 2232) 541 MG/DL HDL CHOLESTEROL (test code = 2220) 36 MG/DL CALC LDL CHOL (test code = 2237) (NOTE) MG/DL RISK RATIO LDL/HDL (test cod e = 2238) (NOTE) RATIO Db FlanaganHEMOGLOBIN [id number] 00:00:00* Test Item Value Reference Range Interpretation Comme nts HEMOGLOBIN A1c (test code = 57987) 6.5 % Db FlanaganCOMPREHENSIVE METABOLIC [id number] 00:00:00* Test Item Value Reference Range Interpretation Comme nts GLUCOSE (test code = 2217) 139 MG/DL BUN (test code = 2208) 17 MG/DL CREATININE (test code = 2214) 1.09 MG/DL eGFR (2020 CKD-EPI) (test co de = 89654) 63 ML/MIN/1.73 CALC BUN/CREAT (test code = 2235) 16 RATIO SODIUM (test code = 2231) 140 MEQ/L POTASSIUM (test code = 2228) 4.2 MEQ/L CHLORIDE (test code = 2215) 104 MEQ/L CARBON DIOXIDE (test code = 2206) 24 MEQ/L CALCIUM (test code = 2209) 9.6 MG/DL PROTEIN, TOTAL (test code = 2229) 7.2 G/DL ALBUMIN (test code = 2201) 4.4 G/DL CALC GLOBULIN (test code = 2240) 2.8 G/DL CALC A/G RATIO (test code = 2234) 1.6 RATIO BILIRUBIN, TOTAL (test code = 2207) <0.2 MG/DL ALKALINE PHOSPHATASE (test code = 2204) 112 U/L AST (test code = 2218) 19 U/L ALT (test code = 2219) 23 U/L Db FlanaganLIPID [id number] 00:00:00* Test Item Value Reference Range Interpretation Comme nts CHOLESTEROL (test code = 2210) 298 MG/DL TRIGLYCERIDES (test code = 2232) 541 MG/DL HDL CHOLESTEROL (test code = 2220) 36 MG/DL CALC LDL CHOL (test code = 2237) (NOTE) MG/DL RISK RATIO LDL/HDL (test cod e = 2238) (NOTE) RATIO Db FlanaganHEMOGLOBIN [id number] 00:00:00* Test Item Value Reference Range Interpretation Comme nts HEMOGLOBIN A1c (test code = 31801) 6.5 % Db QuirozH, THIRD [id number] 06:59:53* Test Item Value Reference Range Interpretation Comme nts TSH, THIRD GENERATION (test code = 2821) 0.728 UIU/ML 0.400-4.100 UNLESS OTHERWISE INDICATED, ALL TESTING PERFORMED [facility] [employer] [address] [place] [address] COURT CRIER: PIO BURDICK M.D. CLIA NUMBER [id number] [facility] [place]. [id number] LIPID [id number] 05:57:50* Test Item Value Reference Range Interpretation [...] SPECIMENS. FOR MOREINFORMATION, SEE CLIENT ANNOUNCEMENT AT [email or web address] RISK RATIO LDL/HDL (test code = 2238) 3.12 RATIO <3.22 COMPREHENSIVE METABOLIC [id number] 05:57:50* Test Item Value Reference Range Interpretation Comme nts GLUCOSE (test code = 2217) 85 MG/DL 70-99 BUN (test code = 2207) 15 MG/DL 6-20 CREATININE (test code = 2213) 0.92 MG/DL 0.60-1.30 eGFR (2020 CKD-EPI) (test code = ) 78 ML/MIN/1.73 >60 CALC BUN/CREAT (test code = 2234) 16 RATIO 6-28 SODIUM (test code = 2230) 142 MEQ/L 133-146 POTASSIUM (test code = 2227) 4.7 MEQ/L 3.5-5.4 CHLORIDE (test code = 2214) 103 MEQ/L 95-107 CARBON DIOXIDE (test code = 2205) 26 MEQ/L 19-31 CALCIUM (test code = 2208) 9.7 MG/DL 8.5-10.5 PROTEIN, TOTAL (test code = 2228) 7.3 G/DL 6.1-8.3 ALBUMIN (test code = 2200) 4.3 G/DL 3.5-5.2 CALC GLOBULIN (test code = 2239) 3.0 G/DL 1.9-3.7 CALC A/G RATIO (test code = 2233) 1.4 RATIO 1.0-2.6 BILIRUBIN, TOTAL (test code = 2206) 0.2 MG/DL See_Comment [Automated me ssage] The system which generated this result transmitted reference range: <=1.2. The reference range was not used to interpret this result as normal/abnormal. ALKALINE PHOSPHATASE (test code = 2203) 119 U/L 40-118 H AST (test code = 2217) 17 U/L 9-40 ALT (test code = 2218) 21 U/L 5-40 HEMOGLOBIN [id number] 05:42:46* Test Item Value Reference Range Interpretation Comme nts HEMOGLOBIN A1c (test code = 97279) 6.4 % 4.2-5.6 H CBC W/AUTO DIFF WITH [id number] 04:28:23* Test Item Value Reference Range Interpretation [...] = 1065) 0.0 /100 WBC'S See_Comment [Automated [employer]] The system which generated this result [...] 0.00-0.10 ABS NUCLEATED RBCS (test code = 57039) 0.00 K/UL 0.00-0.11 LIPID [id number] 00:00:00* Test Item Value Reference Range Interpretation Comme nts CHOLESTEROL (test code = 2210) 265 MG/DL TRIGLYCERIDES (test code = 2232) 386 MG/DL HDL CHOLESTEROL (test code = 2220) 50 MG/DL CALC LDL CHOL (test code = 2237) 156 MG/DL RISK RATIO LDL/HDL (test cod e = 2238) 3.12 RATIO Db F AustinCOMPREHENSIVE METABOLIC [id number] 00:00:00* Test Item Value Reference Range Interpretation Comme nts GLUCOSE (test code = 2217) 85 MG/DL BUN (test code = 2208) 15 MG/DL CREATININE (test code = 2214) 0.92 MG/DL eGFR (2020 CKD-EPI) (test co de = 07091) 78 ML/MIN/1.73 CALC BUN/CREAT (test code = 2235) 16 RATIO SODIUM (test code = 2231) 142 MEQ/L POTASSIUM (test code = 2228) 4.7 MEQ/L CHLORIDE (test code = 2215) 103 MEQ/L CARBON DIOXIDE (test code = 2206) 26 MEQ/L CALCIUM (test code = 2209) 9.7 MG/DL PROTEIN, TOTAL (test code = 2229) 7.3 G/DL ALBUMIN (test code = 2201) 4.3 G/DL CALC GLOBULIN (test code = 2240) 3.0 G/DL CALC A/G RATIO (test code = 2234) 1.4 RATIO BILIRUBIN, TOTAL (test code = 2207) 0.2 MG/DL ALKALINE PHOSPHATASE (test code = 2204) 119 U/L AST (test code = 2218) 17 U/L ALT (test code = 2219) 21 U/L Db [id number] 00:00:00* Test Item Value Reference Range Interpretation Comme nts TSH, THIRD GENERATION (test code = 2821) 0.728 UIU/ML Db FlanaganCBC W/AUTO [id number] 00:00:00* Test Item Value Reference Range Interpretation Comme nts WBC (test code = 1001) 9.8 K/UL RBC (test code = 1002) 4.54 M/UL HEMOGLOBIN (test code = 1003) 14.4 G/DL HEMATOCRIT (test code = 1004) 41.4 % MCV (test code = 1005) 91.2 fL MCH (test code = 1006) 31.7 PG MCHC (test code = 1007) 34.8 G/DL RDW (test code = 1038) 13.7 % NEUTROPHILS (test code = 1008) 60.3 % LYMPHOCYTES (test code = 1010) 28.8 % MONOCYTES (test code = 1011) 7.2 % EOSINOPHILS (test code = 1012) 2.9 % BASOPHILS (test code = 1013) 0.6 % IMMATURE GRANYLOCYTES (test code = 1036) 0.2 % NUCLEATED RBCS (test code = 1065) 0.0 /100WBC'S PLATELET COUNT (test code = 1015) 324 K/UL ABSOLUTE NEUTROPHILS (test c ode = 1066) 5.90 K/UL ABSOLUTE LYMPHOCYTES (test c ode = 1067) 2.82 K/UL ABSOLUTE MONOCYTES (test cod e = 1068) 0.70 K/UL ABSOLUTE EOSINOPHILS (test c ode = 1040) 0.28 K/UL ABSOLUTE BASOPHILS (test cod e = 1069) 0.06 K/UL ABS IMMATURE GRANULOCYTES (t est code = 1020) 0.02 K/UL ABS NUCLEATED RBCS (test cod e = 80919) 0.00 K/UL Db FlanaganHEMOGLOBIN [id number] 00:00:00* Test Item Value Reference Range Interpretation Comme nts HEMOGLOBIN A1c (test code = 24008) 6.4 % Db FlanaganLIPID [id number] 00:00:00* Test Item Value Reference Range Interpretation Comme nts CHOLESTEROL (test code = 2210) 265 MG/DL TRIGLYCERIDES (test code = 2232) 386 MG/DL HDL CHOLESTEROL (test code = 2220) 50 MG/DL CALC LDL CHOL (test code = 2237) 156 MG/DL RISK RATIO LDL/HDL (test cod e = 2238) 3.12 RATIO Db FlanaganCOMPREHENSIVE METABOLIC [id number] 00:00:00* Test Item Value Reference Range Interpretation Comme nts GLUCOSE (test code = 2217) 85 MG/DL BUN (test code = 2208) 15 MG/DL CREATININE (test code = 2214) 0.92 MG/DL eGFR (2020 CKD-EPI) (test co de = 59547) 78 ML/MIN/1.73 CALC BUN/CREAT (test code = 2235) 16 RATIO SODIUM (test code = 2231) 142 MEQ/L POTASSIUM (test code = 2228) 4.7 MEQ/L CHLORIDE (test code = 2215) 103 MEQ/L CARBON DIOXIDE (test code = 2206) 26 MEQ/L CALCIUM (test code = 2209) 9.7 MG/DL PROTEIN, TOTAL (test code = 2229) 7.3 G/DL ALBUMIN (test code = 2201) 4.3 G/DL CALC GLOBULIN (test code = 2240) 3.0 G/DL CALC A/G RATIO (test code = 2234) 1.4 RATIO BILIRUBIN, TOTAL (test code = 2207) 0.2 MG/DL ALKALINE PHOSPHATASE (test code = 2204) 119 U/L AST (test code = 2218) 17 U/L ALT (test code = 2219) 21 U/L Db [id number] 00:00:00* Test Item Value Reference Range Interpretation Comme nts TSH, THIRD GENERATION (test code = 2821) 0.728 UIU/ML Db FlanaganCBC W/AUTO [id number] 00:00:00* Test Item Value Reference Range Interpretation Comme nts WBC (test code = 1001) 9.8 K/UL RBC (test code = 1002) 4.54 M/UL HEMOGLOBIN (test code = 1003) 14.4 G/DL HEMATOCRIT (test code = 1004) 41.4 % MCV (test code = 1005) 91.2 fL MCH (test code = 1006) 31.7 PG MCHC (test code = 1007) 34.8 G/DL RDW (test code = 1038) 13.7 % NEUTROPHILS (test code = 1008) 60.3 % LYMPHOCYTES (test code = 1010) 28.8 % MONOCYTES (test code = 1011) 7.2 % EOSINOPHILS (test code = 1012) 2.9 % BASOPHILS (test code = 1013) 0.6 % IMMATURE GRANYLOCYTES (test code = 1036) 0.2 % NUCLEATED RBCS (test code = 1065) 0.0 /100WBC'S PLATELET COUNT (test code = 1015) 324 K/UL ABSOLUTE NEUTROPHILS (test c ode = 1066) 5.90 K/UL ABSOLUTE LYMPHOCYTES (test c ode = 1067) 2.82 K/UL ABSOLUTE MONOCYTES (test cod e = 1068) 0.70 K/UL ABSOLUTE EOSINOPHILS (test c ode = 1040) 0.28 K/UL ABSOLUTE BASOPHILS (test cod e = 1069) 0.06 K/UL ABS IMMATURE GRANULOCYTES (t est code = 1020) 0.02 K/UL ABS NUCLEATED RBCS (test cod e = 21199) 0.00 K/UL Db FlanaganHEMOGLOBIN [id number] 00:00:00* Test Item Value Reference Range Interpretation Comme lanny HEMOGLOBIN A1c (test code = 24852) 6.4 % Db FlanaganLIPID [id number] 00:00:00* Test Item Value Reference Range Interpretation Comme nts CHOLESTEROL (test code = 2210) 265 MG/DL TRIGLYCERIDES (test code = 2232) 386 MG/DL HDL CHOLESTEROL (test code = 2220) 50 MG/DL CALC LDL CHOL (test code = 2237) 156 MG/DL RISK RATIO LDL/HDL (test cod e = 2238) 3.12 RATIO Db FlanaganCOMPREHENSIVE METABOLIC [id number] 00:00:00* Test Item Value Reference Range Interpretation Comme nts GLUCOSE (test code = 2217) 85 MG/DL BUN (test code = 2208) 15 MG/DL CREATININE (test code = 2214) 0.92 MG/DL eGFR (2020 CKD-EPI) (test co de = 47445) 78 ML/MIN/1.73 CALC BUN/CREAT (test code = 2235) 16 RATIO SODIUM (test code = 2231) 142 MEQ/L POTASSIUM (test code = 2228) 4.7 MEQ/L CHLORIDE (test code = 2215) 103 MEQ/L CARBON DIOXIDE (test code = 2206) 26 MEQ/L CALCIUM (test code = 2209) 9.7 MG/DL PROTEIN, TOTAL (test code = 2229) 7.3 G/DL ALBUMIN (test code = 2201) 4.3 G/DL CALC GLOBULIN (test code = 2240) 3.0 G/DL CALC A/G RATIO (test code = 2234) 1.4 RATIO BILIRUBIN, TOTAL (test code = 2207) 0.2 MG/DL ALKALINE PHOSPHATASE (test code = 2204) 119 U/L AST (test code = 2218) 17 U/L ALT (test code = 2219) 21 U/L Db [id number] 00:00:00* Test Item Value Reference Range Interpretation Comme nts TSH, THIRD GENERATION (test code = 2821) 0.728 UIU/ML Db FlanaganCBC W/AUTO [id number] 00:00:00* Test Item Value Reference Range Interpretation Comme nts WBC (test code = 1001) 9.8 K/UL RBC (test code = 1002) 4.54 M/UL HEMOGLOBIN (test code = 1003) 14.4 G/DL HEMATOCRIT (test code = 1004) 41.4 % MCV (test code = 1005) 91.2 fL MCH (test code = 1006) 31.7 PG MCHC (test code = 1007) 34.8 G/DL RDW (test code = 1038) 13.7 % NEUTROPHILS (test code = 1008) 60.3 % LYMPHOCYTES (test code = 1010) 28.8 % MONOCYTES (test code = 1011) 7.2 % EOSINOPHILS (test code = 1012) 2.9 % BASOPHILS (test code = 1013) 0.6 % IMMATURE GRANYLOCYTES (test code = 1036) 0.2 % NUCLEATED RBCS (test code = 1065) 0.0 /100WBC'S PLATELET COUNT (test code = 1015) 324 K/UL ABSOLUTE NEUTROPHILS (test c ode = 1066) 5.90 K/UL ABSOLUTE LYMPHOCYTES (test c ode = 1067) 2.82 K/UL ABSOLUTE MONOCYTES (test cod e = 1068) 0.70 K/UL ABSOLUTE EOSINOPHILS (test c ode = 1040) 0.28 K/UL ABSOLUTE BASOPHILS (test cod e = 1069) 0.06 K/UL ABS IMMATURE GRANULOCYTES (t est code = 1020) 0.02 K/UL ABS NUCLEATED RBCS (test cod e = 26938) 0.00 K/UL Db FlanaganHEMOGLOBIN [id number] 00:00:00* Test Item Value Reference Range Interpretation Comme nts HEMOGLOBIN A1c (test code = 12022) 6.4 % Db Munoz AustinLIPID [id number] 00:00:00* Test Item Value Reference Range Interpretation Comme nts CHOLESTEROL (test code = 2210) 265 MG/DL TRIGLYCERIDES (test code = 2232) 386 MG/DL HDL CHOLESTEROL (test code = 2220) 50 MG/DL CALC LDL CHOL (test code = 2237) 156 MG/DL RISK RATIO LDL/HDL (test cod e = 2238) 3.12 RATIO Db FlanaganCOMPREHENSIVE METABOLIC [id number] 00:00:00* Test Item Value Reference Range Interpretation Comme nts GLUCOSE (test code = 2217) 85 MG/DL BUN (test code = 2208) 15 MG/DL CREATININE (test code = 2214) 0.92 MG/DL eGFR (2020 CKD-EPI) (test co de = 12691) 78 ML/MIN/1.73 CALC BUN/CREAT (test code = 2235) 16 RATIO SODIUM (test code = 2231) 142 MEQ/L POTASSIUM (test code = 2228) 4.7 MEQ/L CHLORIDE (test code = 2215) 103 MEQ/L CARBON DIOXIDE (test code = 2206) 26 MEQ/L CALCIUM (test code = 2209) 9.7 MG/DL PROTEIN, TOTAL (test code = 2229) 7.3 G/DL ALBUMIN (test code = 2201) 4.3 G/DL CALC GLOBULIN (test code = 2240) 3.0 G/DL CALC A/G RATIO (test code = 2234) 1.4 RATIO BILIRUBIN, TOTAL (test code = 2207) 0.2 MG/DL ALKALINE PHOSPHATASE (test code = 2204) 119 U/L AST (test code = 2218) 17 U/L ALT (test code = 2219) 21 U/L Db [id number] 00:00:00* Test Item Value Reference Range Interpretation Comme [facility] TSH, THIRD GENERATION (test code = 2821) 0.728 UIU/ML [facility] [id number] 00:00:00* Test Item Value Reference Range Interpretation Comme [facility] WBC (test code = 1001) 9.8 K/UL RBC (test code = 1002) 4.54 M/UL HEMOGLOBIN (test code = 1003) 14.4 G/DL HEMATOCRIT (test code = 1004) 41.4 % MCV (test code = 1005) 91.2 fL MCH (test code = 1006) 31.7 PG MCHC (test code = 1007) 34.8 G/DL RDW (test code = 1038) 13.7 % NEUTROPHILS (test code = 1008) 60.3 % LYMPHOCYTES (test code = 1010) 28.8 % MONOCYTES (test code = 1011) 7.2 % EOSINOPHILS (test code = 1012) 2.9 % BASOPHILS (test code = 1013) 0.6 % IMMATURE GRANYLOCYTES (test code = 1036) 0.2 % NUCLEATED RBCS (test code = 1065) 0.0 /100WBC'S PLATELET COUNT (test code = 1015) 324 K/UL ABSOLUTE NEUTROPHILS (test c ode = 1066) 5.90 K/UL ABSOLUTE LYMPHOCYTES (test c ode = 1067) 2.82 K/UL ABSOLUTE MONOCYTES (test cod e = 1068) 0.70 K/UL ABSOLUTE EOSINOPHILS (test c ode = 1040) 0.28 K/UL ABSOLUTE BASOPHILS (test cod e = 1069) 0.06 K/UL ABS IMMATURE GRANULOCYTES (t est code = 1020) 0.02 K/UL ABS NUCLEATED RBCS (test cod e = 76734) 0.00 K/UL Db FlanaganHEMOGLOBIN [id number] 00:00:00* Test Item Value Reference Range Interpretation Comme nts HEMOGLOBIN A1c (test code = 97453) 6.4 % Db FlanaganLIPID [id number] 00:00:00* Test Item Value Reference Range Interpretation Comme nts CHOLESTEROL (test code = 2210) 265 MG/DL TRIGLYCERIDES (test code = 2232) 386 MG/DL HDL CHOLESTEROL (test code = 2220) 50 MG/DL CALC LDL CHOL (test code = 2237) 156 MG/DL RISK RATIO LDL/HDL (test cod e = 2238) 3.12 RATIO Db FlanaganCOMPREHENSIVE METABOLIC [id number] 00:00:00* Test Item Value Reference Range Interpretation Comme nts GLUCOSE (test code = 2217) 85 MG/DL BUN (test code = 2208) 15 MG/DL CREATININE (test code = 2214) 0.92 MG/DL eGFR (2020 CKD-EPI) (test co de = 60882) 78 ML/MIN/1.73 CALC BUN/CREAT (test code = 2235) 16 RATIO SODIUM (test code = 2231) 142 MEQ/L POTASSIUM (test code = 2228) 4.7 MEQ/L CHLORIDE (test code = 2215) 103 MEQ/L CARBON DIOXIDE (test code = 2206) 26 MEQ/L CALCIUM (test code = 2209) 9.7 MG/DL PROTEIN, TOTAL (test code = 2229) 7.3 G/DL ALBUMIN (test code = 2201) 4.3 G/DL CALC GLOBULIN (test code = 2240) 3.0 G/DL CALC A/G RATIO (test code = 2234) 1.4 RATIO BILIRUBIN, TOTAL (test code = 2207) 0.2 MG/DL ALKALINE PHOSPHATASE (test code = 2204) 119 U/L AST (test code = 2218) 17 U/L ALT (test code = 2219) 21 U/L Db [id number] 00:00:00* Test Item Value Reference Range Interpretation Comme nts TSH, THIRD GENERATION (test code = 2821) 0.728 UIU/ML Db FlanaganCBC W/AUTO [id number] 00:00:00* Test Item Value Reference Range Interpretation Comme nts WBC (test code = 1001) 9.8 K/UL RBC (test code = 1002) 4.54 M/UL HEMOGLOBIN (test code = 1003) 14.4 G/DL HEMATOCRIT (test code = 1004) 41.4 % MCV (test code = 1005) 91.2 fL MCH (test code = 1006) 31.7 PG MCHC (test code = 1007) 34.8 G/DL RDW (test code = 1038) 13.7 % NEUTROPHILS (test code = 1008) 60.3 % LYMPHOCYTES (test code = 1010) 28.8 % MONOCYTES (test code = 1011) 7.2 % EOSINOPHILS (test code = 1012) 2.9 % BASOPHILS (test code = 1013) 0.6 % IMMATURE GRANYLOCYTES (test code = 1036) 0.2 % NUCLEATED RBCS (test code = 1065) 0.0 /100WBC'S PLATELET COUNT (test code = 1015) 324 K/UL ABSOLUTE NEUTROPHILS (test c ode = 1066) 5.90 K/UL ABSOLUTE LYMPHOCYTES (test c ode = 1067) 2.82 K/UL ABSOLUTE MONOCYTES (test cod e = 1068) 0.70 K/UL ABSOLUTE EOSINOPHILS (test c ode = 1040) 0.28 K/UL ABSOLUTE BASOPHILS (test cod e = 1069) 0.06 K/UL ABS IMMATURE GRANULOCYTES (t est code = 1020) 0.02 K/UL ABS NUCLEATED RBCS (test cod e = 06499) 0.00 K/UL Db FlanaganHEMOGLOBIN [id number] 00:00:00* Test Item Value Reference Range Interpretation Comme lanny HEMOGLOBIN A1c (test code = 07645) 6.4 % Db FlanaganLIPID [id number] 00:00:00* Test Item Value Reference Range Interpretation Comme nts CHOLESTEROL (test code = 2210) 265 MG/DL TRIGLYCERIDES (test code = 2232) 386 MG/DL HDL CHOLESTEROL (test code = 2220) 50 MG/DL CALC LDL CHOL (test code = 2237) 156 MG/DL RISK RATIO LDL/HDL (test cod e = 2238) 3.12 RATIO Db FlanaganCOMPREHENSIVE METABOLIC [id number] 00:00:00* Test Item Value Reference Range Interpretation Comme nts GLUCOSE (test code = 2217) 85 MG/DL BUN (test code = 2208) 15 MG/DL CREATININE (test code = 2214) 0.92 MG/DL eGFR (2020 CKD-EPI) (test co de = 22511) 78 ML/MIN/1.73 CALC BUN/CREAT (test code = 2235) 16 RATIO SODIUM (test code = 2231) 142 MEQ/L POTASSIUM (test code = 2228) 4.7 MEQ/L CHLORIDE (test code = 2215) 103 MEQ/L CARBON DIOXIDE (test code = 2206) 26 MEQ/L CALCIUM (test code = 2209) 9.7 MG/DL PROTEIN, TOTAL (test code = 2229) 7.3 G/DL ALBUMIN (test code = 2201) 4.3 G/DL CALC GLOBULIN (test code = 2240) 3.0 G/DL CALC A/G RATIO (test code = 2234) 1.4 RATIO BILIRUBIN, TOTAL (test code = 2207) 0.2 MG/DL ALKALINE PHOSPHATASE (test code = 2204) 119 U/L AST (test code = 2218) 17 U/L ALT (test code = 2219) 21 U/L Db [id number] 00:00:00* Test Item Value Reference Range Interpretation Comme nts TSH, THIRD GENERATION (test code = 2821) 0.728 UIU/ML Db FlanaganCBC W/AUTO [id number] 00:00:00* Test Item Value Reference Range Interpretation Comme nts WBC (test code = 1001) 9.8 K/UL RBC (test code = 1002) 4.54 M/UL HEMOGLOBIN (test code = 1003) 14.4 G/DL HEMATOCRIT (test code = 1004) 41.4 % MCV (test code = 1005) 91.2 fL MCH (test code = 1006) 31.7 PG MCHC (test code = 1007) 34.8 G/DL RDW (test code = 1038) 13.7 % NEUTROPHILS (test code = 1008) 60.3 % LYMPHOCYTES (test code = 1010) 28.8 % MONOCYTES (test code = 1011) 7.2 % EOSINOPHILS (test code = 1012) 2.9 % BASOPHILS (test code = 1013) 0.6 % IMMATURE GRANYLOCYTES (test code = 1036) 0.2 % NUCLEATED RBCS (test code = 1065) 0.0 /100WBC'S PLATELET COUNT (test code = 1015) 324 K/UL ABSOLUTE NEUTROPHILS (test c ode = 1066) 5.90 K/UL ABSOLUTE LYMPHOCYTES (test c ode = 1067) 2.82 K/UL ABSOLUTE MONOCYTES (test cod e = 1068) 0.70 K/UL ABSOLUTE EOSINOPHILS (test c ode = 1040) 0.28 K/UL ABSOLUTE BASOPHILS (test cod e = 1069) 0.06 K/UL ABS IMMATURE GRANULOCYTES (t est code = 1020) 0.02 K/UL ABS NUCLEATED RBCS (test cod e = 66819) 0.00 K/UL Db FlanaganHEMOGLOBIN [id number] 00:00:00* Test Item Value Reference Range Interpretation Comme nts HEMOGLOBIN A1c (test code = 82075) 6.4 % Db FlanaganLIPID [id number] 00:00:00* Test Item Value Reference Range Interpretation Comme nts CHOLESTEROL (test code = 2210) 265 MG/DL TRIGLYCERIDES (test code = 2232) 386 MG/DL HDL CHOLESTEROL (test code = 2220) 50 MG/DL CALC LDL CHOL (test code = 2237) 156 MG/DL RISK RATIO LDL/HDL (test cod e = 2238) 3.12 RATIO Db FlanaganCOMPREHENSIVE METABOLIC [id number] 00:00:00* Test Item Value Reference Range Interpretation Comme nts GLUCOSE (test code = 2217) 85 MG/DL BUN (test code = 2208) 15 MG/DL CREATININE (test code = 2214) 0.92 MG/DL eGFR (2020 CKD-EPI) (test co de = 37164) 78 ML/MIN/1.73 CALC BUN/CREAT (test code = 2235) 16 RATIO SODIUM (test code = 2231) 142 MEQ/L POTASSIUM (test code = 2228) 4.7 MEQ/L CHLORIDE (test code = 2215) 103 MEQ/L CARBON DIOXIDE (test code = 2206) 26 MEQ/L CALCIUM (test code = 2209) 9.7 MG/DL PROTEIN, TOTAL (test code = 2229) 7.3 G/DL ALBUMIN (test code = 2201) 4.3 G/DL CALC GLOBULIN (test code = 2240) 3.0 G/DL CALC A/G RATIO (test code = 2234) 1.4 RATIO BILIRUBIN, TOTAL (test code = 2207) 0.2 MG/DL ALKALINE PHOSPHATASE (test code = 2204) 119 U/L AST (test code = 2218) 17 U/L ALT (test code = 2219) 21 U/L Db [id number] 00:00:00* Test Item Value Reference Range Interpretation Comme nts TSH, THIRD GENERATION (test code = 2821) 0.728 UIU/ML Db FlanaganCBC W/AUTO [id number] 00:00:00* Test Item Value Reference Range Interpretation Comme nts WBC (test code = 1001) 9.8 K/UL RBC (test code = 1002) 4.54 M/UL HEMOGLOBIN (test code = 1003) 14.4 G/DL HEMATOCRIT (test code = 1004) 41.4 % MCV (test code = 1005) 91.2 fL MCH (test code = 1006) 31.7 PG MCHC (test code = 1007) 34.8 G/DL RDW (test code = 1038) 13.7 % NEUTROPHILS (test code = 1008) 60.3 % LYMPHOCYTES (test code = 1010) 28.8 % MONOCYTES (test code = 1011) 7.2 % EOSINOPHILS (test code = 1012) 2.9 % BASOPHILS (test code = 1013) 0.6 % IMMATURE GRANYLOCYTES (test code = 1036) 0.2 % NUCLEATED RBCS (test code = 1065) 0.0 /100WBC'S PLATELET COUNT (test code = 1015) 324 K/UL ABSOLUTE NEUTROPHILS (test c ode = 1066) 5.90 K/UL ABSOLUTE LYMPHOCYTES (test c ode = 1067) 2.82 K/UL ABSOLUTE MONOCYTES (test cod e = 1068) 0.70 K/UL ABSOLUTE EOSINOPHILS (test c ode = 1040) 0.28 K/UL ABSOLUTE BASOPHILS (test cod e = 1069) 0.06 K/UL ABS IMMATURE GRANULOCYTES (t est code = 1020) 0.02 K/UL ABS NUCLEATED RBCS (test cod e = 92994) 0.00 K/UL Db FlanaganHEMOGLOBIN [id number] 00:00:00* Test Item Value Reference Range Interpretation Comme nts HEMOGLOBIN A1c (test code = 60931) 6.4 % Db FlanaganCOMPREHENSIVE METABOLIC [id number] 00:00:00* Test Item Value Reference Range Interpretation Comme nts GLUCOSE (test code = 2217) 117 MG/DL BUN (test code = 2208) 17 MG/DL CREATININE (test code = 2214) 1.03 MG/DL eGFR AMER. (test cod e = 21239) 75 ML/MIN/1.73 eGFR NON- AMER. (test code = 72992) 65 ML/MIN/1.73 CALC BUN/CREAT (test code = 2235) 17 RATIO SODIUM (test code = 2231) 139 MEQ/L POTASSIUM (test code = 2228) 4.3 MEQ/L CHLORIDE (test code = 2215) 101 MEQ/L CARBON DIOXIDE (test code = 2206) 25 MEQ/L CALCIUM (test code = 2209) 9.6 MG/DL PROTEIN, TOTAL (test code = 2229) 7.0 G/DL ALBUMIN (test code = 2201) 4.4 G/DL CALC GLOBULIN (test code = 2240) 2.6 G/DL CALC A/G RATIO (test code = 2234) 1.7 RATIO BILIRUBIN, TOTAL (test code = 2207) 0.2 MG/DL ALKALINE PHOSPHATASE (test code = 2204) 116 U/L AST (test code = 2218) 19 U/L ALT (test code = 2219) 24 U/L Db FlanaganLIPID [id number] 00:00:00* Test Item Value Reference Range Interpretation Comme nts CHOLESTEROL (test code = 2210) 287 MG/DL TRIGLYCERIDES (test code = 2232) 421 MG/DL HDL CHOLESTEROL (test code = 2220) 40 MG/DL CALC LDL CHOL (test code = 2237) (NOTE) MG/DL RISK RATIO LDL/HDL (test cod e = 2238) 4.60 RATIO Db F AustinCOMPREHENSIVE METABOLIC [id number] 00:00:00* Test Item Value Reference Range Interpretation Comme nts GLUCOSE (test code = 2217) 117 MG/DL BUN (test code = 2208) 17 MG/DL CREATININE (test code = 2214) 1.03 MG/DL eGFR AMER. (test cod e = 08618) 75 ML/MIN/1.73 eGFR NON- AMER. (test code = 20854) 65 ML/MIN/1.73 CALC BUN/CREAT (test code = 2235) 17 RATIO SODIUM (test code = 2231) 139 MEQ/L POTASSIUM (test code = 2228) 4.3 MEQ/L CHLORIDE (test code = 2215) 101 MEQ/L CARBON DIOXIDE (test code = 2206) 25 MEQ/L CALCIUM (test code = 2209) 9.6 MG/DL PROTEIN, TOTAL (test code = 2229) 7.0 G/DL ALBUMIN (test code = 2201) 4.4 G/DL CALC GLOBULIN (test code = 2240) 2.6 G/DL CALC A/G RATIO (test code = 2234) 1.7 RATIO BILIRUBIN, TOTAL (test code = 2207) 0.2 MG/DL ALKALINE PHOSPHATASE (test code = 2204) 116 U/L AST (test code = 2218) 19 U/L ALT (test code = 2219) 24 U/L Db Munoz AustinLIPID [id number] 00:00:00* Test Item Value Reference Range Interpretation Comme nts CHOLESTEROL (test code = 2210) 287 MG/DL TRIGLYCERIDES (test code = 2232) 421 MG/DL HDL CHOLESTEROL (test code = 2220) 40 MG/DL CALC LDL CHOL (test code = 2237) (NOTE) MG/DL RISK RATIO LDL/HDL (test cod e = 2238) 4.60 RATIO Db Munoz AustinCOMPREHENSIVE METABOLIC [id number] 00:00:00* Test Item Value Reference Range Interpretation Comme nts GLUCOSE (test code = 2217) 117 MG/DL BUN (test code = 2208) 17 MG/DL CREATININE (test code = 2214) 1.03 MG/DL eGFR AMER. (test cod e = 40259) 75 ML/MIN/1.73 eGFR NON- AMER. (test code = 16959) 65 ML/MIN/1.73 CALC BUN/CREAT (test code = 2235) 17 RATIO SODIUM (test code = 2231) 139 MEQ/L POTASSIUM (test code = 2228) 4.3 MEQ/L CHLORIDE (test code = 2215) 101 MEQ/L CARBON DIOXIDE (test code = 2206) 25 MEQ/L CALCIUM (test code = 2209) 9.6 MG/DL PROTEIN, TOTAL (test code = 2229) 7.0 G/DL ALBUMIN (test code = 2201) 4.4 G/DL CALC GLOBULIN (test code = 2240) 2.6 G/DL CALC A/G RATIO (test code = 2234) 1.7 RATIO BILIRUBIN, TOTAL (test code = 2207) 0.2 MG/DL ALKALINE PHOSPHATASE (test code = 2204) 116 U/L AST (test code = 2218) 19 U/L ALT (test code = 2219) 24 U/L Db Munoz AustinLIPID [id number] 00:00:00* Test Item Value Reference Range Interpretation Comme nts CHOLESTEROL (test code = 2210) 287 MG/DL TRIGLYCERIDES (test code = 2232) 421 MG/DL HDL CHOLESTEROL (test code = 2220) 40 MG/DL CALC LDL CHOL (test code = 2237) (NOTE) MG/DL RISK RATIO LDL/HDL (test cod e = 2238) 4.60 RATIO Db Munoz AustinCOMPREHENSIVE METABOLIC [id number] 00:00:00* Test Item Value Reference Range Interpretation Comme nts GLUCOSE (test code = 2217) 117 MG/DL BUN (test code = 2208) 17 MG/DL CREATININE (test code = 2214) 1.03 MG/DL eGFR AMER. (test cod e = 19487) 75 ML/MIN/1.73 eGFR NON- AMER. (test code = 30162) 65 ML/MIN/1.73 CALC BUN/CREAT (test code = 2235) 17 RATIO SODIUM (test code = 2231) 139 MEQ/L POTASSIUM (test code = 2228) 4.3 MEQ/L CHLORIDE (test code = 2215) 101 MEQ/L CARBON DIOXIDE (test code = 2206) 25 MEQ/L CALCIUM (test code = 2209) 9.6 MG/DL PROTEIN, TOTAL (test code = 2229) 7.0 G/DL ALBUMIN (test code = 2201) 4.4 G/DL CALC GLOBULIN (test code = 2240) 2.6 G/DL CALC A/G RATIO (test code = 2234) 1.7 RATIO BILIRUBIN, TOTAL (test code = 2207) 0.2 MG/DL ALKALINE PHOSPHATASE (test code = 2204) 116 U/L AST (test code = 2218) 19 U/L ALT (test code = 2219) 24 U/L Db Munoz AustinLIPID [id number] 00:00:00* Test Item Value Reference Range Interpretation Comme nts CHOLESTEROL (test code = 2210) 287 MG/DL TRIGLYCERIDES (test code = 2232) 421 MG/DL HDL CHOLESTEROL (test code = 2220) 40 MG/DL CALC LDL CHOL (test code = 2237) (NOTE) MG/DL RISK RATIO LDL/HDL (test cod e = 2238) 4.60 RATIO Db FlanaganCOMPREHENSIVE METABOLIC [id number] 00:00:00* Test Item Value Reference Range Interpretation Comme nts GLUCOSE (test code = 2217) 117 MG/DL BUN (test code = 8) 17 MG/DL CREATININE (test code = 2214) 1.03 MG/DL eGFR AMER. (test cod e = 80197) 75 ML/MIN/1.73 eGFR NON- AMER. (test code = 58542) 65 ML/MIN/1.73 CALC BUN/CREAT (test code = 2235) 17 RATIO SODIUM (test code = 2231) 139 MEQ/L POTASSIUM (test code = 2228) 4.3 MEQ/L CHLORIDE (test code = 2215) 101 MEQ/L CARBON DIOXIDE (test code = 2206) 25 MEQ/L CALCIUM (test code = 2209) 9.6 MG/DL PROTEIN, TOTAL (test code = 2229) 7.0 G/DL ALBUMIN (test code = 2201) 4.4 G/DL CALC GLOBULIN (test code = 2240) 2.6 G/DL CALC A/G RATIO (test code = 2234) 1.7 RATIO BILIRUBIN, TOTAL (test code = 2207) 0.2 MG/DL ALKALINE PHOSPHATASE (test code = 2204) 116 U/L AST (test code = 2218) 19 U/L ALT (test code = 2219) 24 U/L Db Munoz AustinLIPID [id number] 00:00:00* Test Item Value Reference Range Interpretation Comme nts CHOLESTEROL (test code = 2210) 287 MG/DL TRIGLYCERIDES (test code = 2232) 421 MG/DL HDL CHOLESTEROL (test code = 2220) 40 MG/DL CALC LDL CHOL (test code = 2237) (NOTE) MG/DL RISK RATIO LDL/HDL (test cod e = 2238) 4.60 RATIO Db FalnaganCOMPREHENSIVE METABOLIC [id number] 00:00:00* Test Item Value Reference Range Interpretation Comme nts GLUCOSE (test code = 2217) 117 MG/DL BUN (test code = 2208) 17 MG/DL CREATININE (test code = 2214) 1.03 MG/DL eGFR AMER. (test cod e = 40887) 75 ML/MIN/1.73 eGFR NON- AMER. (test code = 01492) 65 ML/MIN/1.73 CALC BUN/CREAT (test code = 2235) 17 RATIO SODIUM (test code = 2231) 139 MEQ/L POTASSIUM (test code = 2228) 4.3 MEQ/L CHLORIDE (test code = 2215) 101 MEQ/L CARBON DIOXIDE (test code = 2206) 25 MEQ/L CALCIUM (test code = 2209) 9.6 MG/DL PROTEIN, TOTAL (test code = 2229) 7.0 G/DL ALBUMIN (test code = 2201) 4.4 G/DL CALC GLOBULIN (test code = 2240) 2.6 G/DL CALC A/G RATIO (test code = 2234) 1.7 RATIO BILIRUBIN, TOTAL (test code = 2207) 0.2 MG/DL ALKALINE PHOSPHATASE (test code = 2204) 116 U/L AST (test code = 2218) 19 U/L ALT (test code = 2219) 24 U/L Db FlanaganLIPID [id number] 00:00:00* Test Item Value Reference Range Interpretation Comme nts CHOLESTEROL (test code = 2210) 287 MG/DL TRIGLYCERIDES (test code = 2232) 421 MG/DL HDL CHOLESTEROL (test code = 2220) 40 MG/DL CALC LDL CHOL (test code = 2237) (NOTE) MG/DL RISK RATIO LDL/HDL (test cod e = 2238) 4.60 RATIO Db FlanaganCOMPREHENSIVE METABOLIC [id number] 00:00:00* Test Item Value Reference Range Interpretation Comme nts GLUCOSE (test code = 2217) 117 MG/DL BUN (test code = 2208) 17 MG/DL CREATININE (test code = 2214) 1.03 MG/DL eGFR AMER. (test cod e = 75791) 75 ML/MIN/1.73 eGFR NON- AMER. (test code = 44983) 65 ML/MIN/1.73 CALC BUN/CREAT (test code = 2235) 17 RATIO SODIUM (test code = 2231) 139 MEQ/L POTASSIUM (test code = 2228) 4.3 MEQ/L CHLORIDE (test code = 2215) 101 MEQ/L CARBON DIOXIDE (test code = 2206) 25 MEQ/L CALCIUM (test code = 2209) 9.6 MG/DL PROTEIN, TOTAL (test code = 2229) 7.0 G/DL ALBUMIN (test code = 2201) 4.4 G/DL CALC GLOBULIN (test code = 2240) 2.6 G/DL CALC A/G RATIO (test code = 2234) 1.7 RATIO BILIRUBIN, TOTAL (test code = 2207) 0.2 MG/DL ALKALINE PHOSPHATASE (test code = 2204) 116 U/L AST (test code = 2218) 19 U/L ALT (test code = 2219) 24 U/L Db FlanaganLIPID [id number] 00:00:00* Test Item Value Reference Range Interpretation Comme nts CHOLESTEROL (test code = 2210) 287 MG/DL TRIGLYCERIDES (test code = 2232) 421 MG/DL HDL CHOLESTEROL (test code = 2220) 40 MG/DL CALC LDL CHOL (test code = 2237) (NOTE) MG/DL RISK RATIO LDL/HDL (test cod e = 2238) 4.60 RATIO [facility] [id number] 00:00:00* Test Item Value Reference Range Interpretation Comme nts WBC (test code = 1001) 11.2 K/UL RBC (test code = 1002) 4.40 M/UL HEMOGLOBIN (test code = 1003) 14.0 G/DL HEMATOCRIT (test code = 1004) 40.7 % MCV (test code = 1005) 92.5 fL MCH (test code = 1006) 31.8 PG MCHC (test code = 1007) 34.4 G/DL RDW (test code = 1038) 12.8 % NEUTROPHILS (test code = 1008) 60.1 % LYMPHOCYTES (test code = 1010) 29.6 % MONOCYTES (test code = 1011) 7.3 % EOSINOPHILS (test code = 1012) 2.1 % BASOPHILS (test code = 1013) 0.5 % IMMATURE GRANYLOCYTES (test code = 1036) 0.4 % NUCLEATED RBCS (test code = 1065) 0.0 /100WBC'S PLATELET COUNT (test code = 1015) 298 K/UL ABSOLUTE NEUTROPHILS (test c ode = 1066) 6.73 K/UL ABSOLUTE LYMPHOCYTES (test c ode = 1067) 3.32 K/UL ABSOLUTE MONOCYTES (test cod e = 1068) 0.82 K/UL ABSOLUTE EOSINOPHILS (test c ode = 1040) 0.24 K/UL ABSOLUTE BASOPHILS (test cod e = 1069) 0.06 K/UL ABS IMMATURE GRANULOCYTES (t est code = 1020) 0.04 K/UL ABS NUCLEATED RBCS (test cod e = 44450) 0.00 K/UL bD [facility] [id number] 00:00:00* Test Item Value Reference Range Interpretation Comme nts WBC (test code = 1001) 11.2 K/UL RBC (test code = 1002) 4.40 M/UL HEMOGLOBIN (test code = 1003) 14.0 G/DL HEMATOCRIT (test code = 1004) 40.7 % MCV (test code = 1005) 92.5 fL MCH (test code = 1006) 31.8 PG MCHC (test code = 1007) 34.4 G/DL RDW (test code = 1038) 12.8 % NEUTROPHILS (test code = 1008) 60.1 % LYMPHOCYTES (test code = 1010) 29.6 % MONOCYTES (test code = 1011) 7.3 % EOSINOPHILS (test code = 1012) 2.1 % BASOPHILS (test code = 1013) 0.5 % IMMATURE GRANYLOCYTES (test code = 1036) 0.4 % NUCLEATED RBCS (test code = 1065) 0.0 /100WBC'S PLATELET COUNT (test code = 1015) 298 K/UL ABSOLUTE NEUTROPHILS (test c ode = 1066) 6.73 K/UL ABSOLUTE LYMPHOCYTES (test c ode = 1067) 3.32 K/UL ABSOLUTE MONOCYTES (test cod e = 1068) 0.82 K/UL ABSOLUTE EOSINOPHILS (test c ode = 1040) 0.24 K/UL ABSOLUTE BASOPHILS (test cod e = 1069) 0.06 K/UL ABS IMMATURE GRANULOCYTES (t est code = 1020) 0.04 K/UL ABS NUCLEATED RBCS (test cod e = 53554) 0.00 K/UL Db Munoz [facility] W/AUTO [id number] 00:00:00* Test Item Value Reference Range Interpretation Comme nts WBC (test code = 1001) 11.2 K/UL RBC (test code = 1002) 4.40 M/UL HEMOGLOBIN (test code = 1003) 14.0 G/DL HEMATOCRIT (test code = 1004) 40.7 % MCV (test code = 1005) 92.5 fL MCH (test code = 1006) 31.8 PG MCHC (test code = 1007) 34.4 G/DL RDW (test code = 1038) 12.8 % NEUTROPHILS (test code = 1008) 60.1 % LYMPHOCYTES (test code = 1010) 29.6 % MONOCYTES (test code = 1011) 7.3 % EOSINOPHILS (test code = 1012) 2.1 % BASOPHILS (test code = 1013) 0.5 % IMMATURE GRANYLOCYTES (test code = 1036) 0.4 % NUCLEATED RBCS (test code = 1065) 0.0 /100WBC'S PLATELET COUNT (test code = 1015) 298 K/UL ABSOLUTE NEUTROPHILS (test c ode = 1066) 6.73 K/UL ABSOLUTE LYMPHOCYTES (test c ode = 1067) 3.32 K/UL ABSOLUTE MONOCYTES (test cod e = 1068) 0.82 K/UL ABSOLUTE EOSINOPHILS (test c ode = 1040) 0.24 K/UL ABSOLUTE BASOPHILS (test cod e = 1069) 0.06 K/UL ABS IMMATURE GRANULOCYTES (t est code = 1020) 0.04 K/UL ABS NUCLEATED RBCS (test cod e = 07410) 0.00 K/UL Db Munoz [employer] W/AUTO [id number] 00:00:00* Test Item Value Reference Range Interpretation Comme nts WBC (test code = 1001) 11.2 K/UL RBC (test code = 1002) 4.40 M/UL HEMOGLOBIN (test code = 1003) 14.0 G/DL HEMATOCRIT (test code = 1004) 40.7 % MCV (test code = 1005) 92.5 fL MCH (test code = 1006) 31.8 PG MCHC (test code = 1007) 34.4 G/DL RDW (test code = 1038) 12.8 % NEUTROPHILS (test code = 1008) 60.1 % LYMPHOCYTES (test code = 1010) 29.6 % MONOCYTES (test code = 1011) 7.3 % EOSINOPHILS (test code = 1012) 2.1 % BASOPHILS (test code = 1013) 0.5 % IMMATURE GRANYLOCYTES (test code = 1036) 0.4 % NUCLEATED RBCS (test code = 1065) 0.0 /100WBC'S PLATELET COUNT (test code = 1015) 298 K/UL ABSOLUTE NEUTROPHILS (test c ode = 1066) 6.73 K/UL ABSOLUTE LYMPHOCYTES (test c ode = 1067) 3.32 K/UL ABSOLUTE MONOCYTES (test cod e = 1068) 0.82 K/UL ABSOLUTE EOSINOPHILS (test c ode = 1040) 0.24 K/UL ABSOLUTE BASOPHILS (test cod e = 1069) 0.06 K/UL ABS IMMATURE GRANULOCYTES (t est code = 1020) 0.04 K/UL ABS NUCLEATED RBCS (test cod e = 67026) 0.00 K/UL Db Munoz [employer] W/AUTO [id number] 00:00:00* Test Item Value Reference Range Interpretation Comme nts WBC (test code = 1001) 11.2 K/UL RBC (test code = 1002) 4.40 M/UL HEMOGLOBIN (test code = 1003) 14.0 G/DL HEMATOCRIT (test code = 1004) 40.7 % MCV (test code = 1005) 92.5 fL MCH (test code = 1006) 31.8 PG MCHC (test code = 1007) 34.4 G/DL RDW (test code = 1038) 12.8 % NEUTROPHILS (test code = 1008) 60.1 % LYMPHOCYTES (test code = 1010) 29.6 % MONOCYTES (test code = 1011) 7.3 % EOSINOPHILS (test code = 1012) 2.1 % BASOPHILS (test code = 1013) 0.5 % IMMATURE GRANYLOCYTES (test code = 1036) 0.4 % NUCLEATED RBCS (test code = 1065) 0.0 /100WBC'S PLATELET COUNT (test code = 1015) 298 K/UL ABSOLUTE NEUTROPHILS (test c ode = 1066) 6.73 K/UL ABSOLUTE LYMPHOCYTES (test c ode = 1067) 3.32 K/UL ABSOLUTE MONOCYTES (test cod e = 1068) 0.82 K/UL ABSOLUTE EOSINOPHILS (test c ode = 1040) 0.24 K/UL ABSOLUTE BASOPHILS (test cod e = 1069) 0.06 K/UL ABS IMMATURE GRANULOCYTES (t est code = 1020) 0.04 K/UL ABS NUCLEATED RBCS (test cod e = 74406) 0.00 K/UL Db [facility] [id number] 00:00:00* Test Item Value Reference Range Interpretation Comme nts WBC (test code = 1001) 11.2 K/UL RBC (test code = 1002) 4.40 M/UL HEMOGLOBIN (test code = 1003) 14.0 G/DL HEMATOCRIT (test code = 1004) 40.7 % MCV (test code = 1005) 92.5 fL MCH (test code = 1006) 31.8 PG MCHC (test code = 1007) 34.4 G/DL RDW (test code = 1038) 12.8 % NEUTROPHILS (test code = 1008) 60.1 % LYMPHOCYTES (test code = 1010) 29.6 % MONOCYTES (test code = 1011) 7.3 % EOSINOPHILS (test code = 1012) 2.1 % BASOPHILS (test code = 1013) 0.5 % IMMATURE GRANYLOCYTES (test code = 1036) 0.4 % NUCLEATED RBCS (test code = 1065) 0.0 /100WBC'S PLATELET COUNT (test code = 1015) 298 K/UL ABSOLUTE NEUTROPHILS (test c ode = 1066) 6.73 K/UL ABSOLUTE LYMPHOCYTES (test c ode = 1067) 3.32 K/UL ABSOLUTE MONOCYTES (test cod e = 1068) 0.82 K/UL ABSOLUTE EOSINOPHILS (test c ode = 1040) 0.24 K/UL ABSOLUTE BASOPHILS (test cod e = 1069) 0.06 K/UL ABS IMMATURE GRANULOCYTES (t est code = 1020) 0.04 K/UL ABS NUCLEATED RBCS (test cod e = 66237) 0.00 K/UL Db Munoz [facility]AUT[facility] [id number] 00:00:00* Test Item Value Reference Range Interpretation Comme nts WBC (test code = 1001) 11.2 K/UL RBC (test code = 1002) 4.40 M/UL HEMOGLOBIN (test code = 1003) 14.0 G/DL HEMATOCRIT (test code = 1004) 40.7 % MCV (test code = 1005) 92.5 fL MCH (test code = 1006) 31.8 PG MCHC (test code = 1007) 34.4 G/DL RDW (test code = 1038) 12.8 % NEUTROPHILS (test code = 1008) 60.1 % LYMPHOCYTES (test code = 1010) 29.6 % MONOCYTES (test code = 1011) 7.3 % EOSINOPHILS (test code = 1012) 2.1 % BASOPHILS (test code = 1013) 0.5 % IMMATURE GRANYLOCYTES (test code = 1036) 0.4 % NUCLEATED RBCS (test code = 1065) 0.0 /100WBC'S PLATELET COUNT (test code = 1015) 298 K/UL ABSOLUTE NEUTROPHILS (test c ode = 1066) 6.73 K/UL ABSOLUTE LYMPHOCYTES (test c ode = 1067) 3.32 K/UL ABSOLUTE MONOCYTES (test cod e = 1068) 0.82 K/UL ABSOLUTE EOSINOPHILS (test c ode = 1040) 0.24 K/UL ABSOLUTE BASOPHILS (test cod e = 1069) 0.06 K/UL ABS IMMATURE GRANULOCYTES (t est code = 1020) 0.04 K/UL ABS NUCLEATED RBCS (test cod e = 20800) 0.00 K/UL Db FlanaganCOMLizzy. METABOLIC PANEL ([id number] 14:36:50* Test Item Value Reference Range Interpretation Comme nts NA (test code = 7035935409) 138 mmol/L 135-145 K (test code = 8718883934) 4.1 mmol/L 3.5-5.0 CL (test code = 5188209440) 104 mmol/L 98-108 CO2 TOTAL (test code = 2467840053) 26 mmol/L 23-31 AGAP (test code = 0126116236) 2-16 BUN (test code = 1747052506) 16 mg/dL 7-23 GLUCOSE (test code = 0585481705) 115 mg/dL 70-110 H CREATININE (test code = 7830742417) 0.87 mg/dL 0.50-1.04 TOTAL BILI (test code = 9268369097) 0.4 mg/dL 0.1-1.1 CALCIUM (test code = 4276201697) 9.9 mg/dL 8.6-10.6 T PROTEIN (test code = 0363606295) 7.0 g/dL 6.3-8.2 ALBUMIN (test code = 7755882673) 4.2 g/dL 3.5-5.0 ALK PHOS (test code = 2109477395) 110 U/L 34-122 ALTv (test code = 1742-6) 26 U/L 5-35 AST(SGOT) (test code = 0470096624) 32 U/L 13-40 eGFR (test code = 7009680525) mL/min/1.73m2 JAMAL (test code = JAMAL) Association [...] imaging tests). Lab Interpretation (test code = 85288-9) Abnormal [facility] WITH [id number] 14:26:50* Test Item Value Reference Range Interpretation Comme nts WBC (test code = 6690-2) See_Comment [EndoStim] The system which generated this result transmitted reference range: 4.30 - 11.10 10*3/?L. The reference range was not used to interpret this result as normal/abnormal. RBC (test code = 789-8) See_Comment [EndoStim] The system which generated this result transmitted [...] 34.1 g/dL 31.6-35.1 RDW-SD (test code = 02193-3) 42.4 fL 39.0-49.9 RDW-CV (test code = 788-0) 12.4 % 12.0-15.5 PLT (test code = 777-3) See_Comment [Automated messa ge] The system which generated this result transmitted reference range: 166 - 358 10*3/?L. The reference range was not used to interpret this result as normal/abnormal. MPV (test code = 40364-3) 11.5 fL 9.5-12.9 NRBC/100 WBC (test code = 6851031843) See_Comment [Automated [employer] ssage] The system which generated this result transmitted reference range: 0.0 - 10.0 /100 WBCs. The reference range was not used to interpret this result as normal/abnormal. NRBC x10^3 (test code = 6659620834) <0.01 See_Comment [Automated messa ge] The system which generated this result transmitted reference range: 10*3/?L. The reference range was not used to interpret this result as normal/abnormal. GRAN MAT (NEUT) % (test code = 770-8) 54.3 % IMM GRAN % (test code = 0454187765) 0.40 % LYMPH % (test code = 736-9) 34.6 % MONO % (test code = 5905-5) 6.6 % EOS % (test code = 713-8) 3.4 % BASO % (test code = 706-2) 0.7 % GRAN MAT x10^3(ANC) (test code = 4303410610) 5.76 10*3/uL 1.88-7.09 IMM GRAN x10^3 (test code = 4386426252) 0.04 10*3/uL 0.00-0.06 LYMPH x10^3 (test code = 731-0) 3.66 10*3/uL 1.32-3.29 H MONO x10^3 (test code = 742-7) 0.70 10*3/uL 0.33-0.92 EOS x10^3 (test code = 711-2) 0.36 10*3/uL 0.03-0.39 BASO x10^3 (test code = 704-7) 0.07 10*3/uL 0.01-0.07 Lab Interpretation (test code = 39921-4) Abnormal [facility] AND CHLAMYDIA AMPLIFIED, [id number] 00:00:00* Test Item Value Reference Range Interpretation Comme nts GONORRHEA, TMA (test code = 69722) NEGATIVE CHLAMYDIA, TMA (test code = 39841) NEGATIVE Db F AustinGC AND CHLAMYDIA AMPLIFIED, [id number] 00:00:00* Test Item Value Reference Range Interpretation Comme nts GONORRHEA, TMA (test code = 51276) NEGATIVE CHLAMYDIA, TMA (test code = 89530) NEGATIVE Db F AustinGC AND CHLAMYDIA AMPLIFIED, [id number] 00:00:00* Test Item Value Reference Range Interpretation Comme nts GONORRHEA, TMA (test code = 09585) NEGATIVE CHLAMYDIA, TMA (test code = 25594) NEGATIVE Db F AustinGC AND CHLAMYDIA AMPLIFIED, [id number] 00:00:00* Test Item Value Reference Range Interpretation Comme nts GONORRHEA, TMA (test code = 41862) NEGATIVE CHLAMYDIA, TMA (test code = 13353) NEGATIVE Db F AustinGC AND CHLAMYDIA AMPLIFIED, [id number] 00:00:00* Test Item Value Reference Range Interpretation Comme nts GONORRHEA, TMA (test code = 12719) NEGATIVE CHLAMYDIA, TMA (test code = 69712) NEGATIVE Db F AustinGC AND CHLAMYDIA AMPLIFIED, [id number] 00:00:00* Test Item Value Reference Range Interpretation Comme nts GONORRHEA, TMA (test code = 97816) NEGATIVE CHLAMYDIA, TMA (test code = 93719) NEGATIVE Db F AustinGC AND CHLAMYDIA AMPLIFIED, [id number] 00:00:00* Test Item Value Reference Range Interpretation Comme nts GONORRHEA, TMA (test code = 13729) NEGATIVE CHLAMYDIA, TMA (test code = 93174) NEGATIVE Db F AustinCOMPREHENSIVE METABOLIC [id number] 00:00:00* Test Item Value Reference Range Interpretation Comme nts GLUCOSE (test code = 2217) 87 MG/DL BUN (test code = 2208) 12 MG/DL CREATININE (test code = 2214) 0.83 MG/DL eGFR AMER. (test cod e = 21349) 101 ML/MIN/1.73 eGFR NON- AMER. (test code = 01852) 87 ML/MIN/1.73 CALC BUN/CREAT (test code = 2235) 14 RATIO SODIUM (test code = 2231) 143 MEQ/L POTASSIUM (test code = 2228) 4.3 MEQ/L CHLORIDE (test code = 2215) 101 MEQ/L CARBON DIOXIDE (test code = 2206) 27 MEQ/L CALCIUM (test code = 2209) 9.5 MG/DL PROTEIN, TOTAL (test code = 2229) 7.0 G/DL ALBUMIN (test code = 2201) 4.0 G/DL CALC GLOBULIN (test code = 2240) 3.0 G/DL CALC A/G RATIO (test code = 2234) 1.3 RATIO BILIRUBIN, TOTAL (test code = 2207) 0.2 MG/DL ALKALINE PHOSPHATASE (test code = 2204) 89 U/L AST (test code = 2218) 24 U/L ALT (test code = 2219) 28 U/L Db FlanaganLIPID [id number] 00:00:00* Test Item Value Reference Range Interpretation Comme nts CHOLESTEROL (test code = 2210) 268 MG/DL TRIGLYCERIDES (test code = 2232) 339 MG/DL HDL CHOLESTEROL (test code = 2220) 41 MG/DL CALC LDL CHOL (test code = 2237) 159 MG/DL RISK RATIO LDL/HDL (test cod e = 2238) 3.88 RATIO Db FlanaganHEMOGLOBIN [id number] 00:00:00* Test Item Value Reference Range Interpretation Comme nts HEMOGLOBIN A1c (test code = 77176) 5.8 % Db FlanaganCOMPREHENSIVE METABOLIC [id number] 00:00:00* Test Item Value Reference Range Interpretation Comme nts GLUCOSE (test code = 2217) 87 MG/DL BUN (test code = 2208) 12 MG/DL CREATININE (test code = 2214) 0.83 MG/DL eGFR AMER. (test cod e = 54944) 101 ML/MIN/1.73 eGFR NON- AMER. (test code = 89155) 87 ML/MIN/1.73 CALC BUN/CREAT (test code = 2235) 14 RATIO SODIUM (test code = 2231) 143 MEQ/L POTASSIUM (test code = 2228) 4.3 MEQ/L CHLORIDE (test code = 2215) 101 MEQ/L CARBON DIOXIDE (test code = 2206) 27 MEQ/L CALCIUM (test code = 2209) 9.5 MG/DL PROTEIN, TOTAL (test code = 2229) 7.0 G/DL ALBUMIN (test code = 2201) 4.0 G/DL CALC GLOBULIN (test code = 2240) 3.0 G/DL CALC A/G RATIO (test code = 2234) 1.3 RATIO BILIRUBIN, TOTAL (test code = 2207) 0.2 MG/DL ALKALINE PHOSPHATASE (test code = 2204) 89 U/L AST (test code = 2218) 24 U/L ALT (test code = 2219) 28 U/L Db FlanaganLIPID [id number] 00:00:00* Test Item Value Reference Range Interpretation Comme nts CHOLESTEROL (test code = 2210) 268 MG/DL TRIGLYCERIDES (test code = 2232) 339 MG/DL HDL CHOLESTEROL (test code = 2220) 41 MG/DL CALC LDL CHOL (test code = 2237) 159 MG/DL RISK RATIO LDL/HDL (test cod e = 2238) 3.88 RATIO Db FlanaganHEMOGLOBIN [id number] 00:00:00* Test Item Value Reference Range Interpretation Comme nts HEMOGLOBIN A1c (test code = 33215) 5.8 % Db FlanaganCOMPREHENSIVE METABOLIC [id number] 00:00:00* Test Item Value Reference Range Interpretation Comme nts GLUCOSE (test code = 2217) 87 MG/DL BUN (test code = 2208) 12 MG/DL CREATININE (test code = 2214) 0.83 MG/DL eGFR AMER. (test cod e = 97455) 101 ML/MIN/1.73 eGFR NON- AMER. (test code = 54163) 87 ML/MIN/1.73 CALC BUN/CREAT (test code = 2235) 14 RATIO SODIUM (test code = 2231) 143 MEQ/L POTASSIUM (test code = 2228) 4.3 MEQ/L CHLORIDE (test code = 2215) 101 MEQ/L CARBON DIOXIDE (test code = 2206) 27 MEQ/L CALCIUM (test code = 2209) 9.5 MG/DL PROTEIN, TOTAL (test code = 2229) 7.0 G/DL ALBUMIN (test code = 2201) 4.0 G/DL CALC GLOBULIN (test code = 2240) 3.0 G/DL CALC A/G RATIO (test code = 2234) 1.3 RATIO BILIRUBIN, TOTAL (test code = 2207) 0.2 MG/DL ALKALINE PHOSPHATASE (test code = 2204) 89 U/L AST (test code = 2218) 24 U/L ALT (test code = 2219) 28 U/L Db FlanaganLIPID [id number] 00:00:00* Test Item Value Reference Range Interpretation Comme nts CHOLESTEROL (test code = 2210) 268 MG/DL TRIGLYCERIDES (test code = 2232) 339 MG/DL HDL CHOLESTEROL (test code = 2220) 41 MG/DL CALC LDL CHOL (test code = 2237) 159 MG/DL RISK RATIO LDL/HDL (test cod e = 2238) 3.88 RATIO Db FlanaganHEMOGLOBIN [id number] 00:00:00* Test Item Value Reference Range Interpretation Comme nts HEMOGLOBIN A1c (test code = 79119) 5.8 % Db FlanaganCOMPREHENSIVE METABOLIC [id number] 00:00:00* Test Item Value Reference Range Interpretation Comme nts GLUCOSE (test code = 2217) 87 MG/DL BUN (test code = 2208) 12 MG/DL CREATININE (test code = 2214) 0.83 MG/DL eGFR AMER. (test cod e = 42997) 101 ML/MIN/1.73 eGFR NON- AMER. (test code = 30289) 87 ML/MIN/1.73 CALC BUN/CREAT (test code = 2235) 14 RATIO SODIUM (test code = 2231) 143 MEQ/L POTASSIUM (test code = 2228) 4.3 MEQ/L CHLORIDE (test code = 2215) 101 MEQ/L CARBON DIOXIDE (test code = 2206) 27 MEQ/L CALCIUM (test code = 2209) 9.5 MG/DL PROTEIN, TOTAL (test code = 2229) 7.0 G/DL ALBUMIN (test code = 2201) 4.0 G/DL CALC GLOBULIN (test code = 2240) 3.0 G/DL CALC A/G RATIO (test code = 2234) 1.3 RATIO BILIRUBIN, TOTAL (test code = 2207) 0.2 MG/DL ALKALINE PHOSPHATASE (test code = 2204) 89 U/L AST (test code = 2218) 24 U/L ALT (test code = 2219) 28 U/L Db FlanaganLIPID [id number] 00:00:00* Test Item Value Reference Range Interpretation Comme nts CHOLESTEROL (test code = 2210) 268 MG/DL TRIGLYCERIDES (test code = 2232) 339 MG/DL HDL CHOLESTEROL (test code = 2220) 41 MG/DL CALC LDL CHOL (test code = 2237) 159 MG/DL RISK RATIO LDL/HDL (test cod e = 2238) 3.88 RATIO Db FlanaganHEMOGLOBIN [id number] 00:00:00* Test Item Value Reference Range Interpretation Comme nts HEMOGLOBIN A1c (test code = 66140) 5.8 % Db FlanaganCOMPREHENSIVE METABOLIC [id number] 00:00:00* Test Item Value Reference Range Interpretation Comme nts GLUCOSE (test code = 2217) 87 MG/DL BUN (test code = 2208) 12 MG/DL CREATININE (test code = 2214) 0.83 MG/DL eGFR AMER. (test cod e = 13190) 101 ML/MIN/1.73 eGFR NON- AMER. (test code = 43651) 87 ML/MIN/1.73 CALC BUN/CREAT (test code = 2235) 14 RATIO SODIUM (test code = 2231) 143 MEQ/L POTASSIUM (test code = 2228) 4.3 MEQ/L CHLORIDE (test code = 2215) 101 MEQ/L CARBON DIOXIDE (test code = 2206) 27 MEQ/L CALCIUM (test code = 2209) 9.5 MG/DL PROTEIN, TOTAL (test code = 2229) 7.0 G/DL ALBUMIN (test code = 2201) 4.0 G/DL CALC GLOBULIN (test code = 2240) 3.0 G/DL CALC A/G RATIO (test code = 2234) 1.3 RATIO BILIRUBIN, TOTAL (test code = 2207) 0.2 MG/DL ALKALINE PHOSPHATASE (test code = 2204) 89 U/L AST (test code = 2218) 24 U/L ALT (test code = 2219) 28 U/L Db FlanaganLIPID [id number] 00:00:00* Test Item Value Reference Range Interpretation Comme nts CHOLESTEROL (test code = 2210) 268 MG/DL TRIGLYCERIDES (test code = 2232) 339 MG/DL HDL CHOLESTEROL (test code = 2220) 41 MG/DL CALC LDL CHOL (test code = 2237) 159 MG/DL RISK RATIO LDL/HDL (test cod e = 2238) 3.88 RATIO Db FlanaganHEMOGLOBIN [id number] 00:00:00* Test Item Value Reference Range Interpretation Comme nts HEMOGLOBIN A1c (test code = 04787) 5.8 % Db FlanaganCOMPREHENSIVE METABOLIC [id number] 00:00:00* Test Item Value Reference Range Interpretation Comme nts GLUCOSE (test code = 2217) 87 MG/DL BUN (test code = 2208) 12 MG/DL CREATININE (test code = 2214) 0.83 MG/DL eGFR AMER. (test cod e = 55687) 101 ML/MIN/1.73 eGFR NON- AMER. (test code = 36563) 87 ML/MIN/1.73 CALC BUN/CREAT (test code = 2235) 14 RATIO SODIUM (test code = 2231) 143 MEQ/L POTASSIUM (test code = 2228) 4.3 MEQ/L CHLORIDE (test code = 2215) 101 MEQ/L CARBON DIOXIDE (test code = 2206) 27 MEQ/L CALCIUM (test code = 2209) 9.5 MG/DL PROTEIN, TOTAL (test code = 2229) 7.0 G/DL ALBUMIN (test code = 2201) 4.0 G/DL CALC GLOBULIN (test code = 2240) 3.0 G/DL CALC A/G RATIO (test code = 2234) 1.3 RATIO BILIRUBIN, TOTAL (test code = 2207) 0.2 MG/DL ALKALINE PHOSPHATASE (test code = 2204) 89 U/L AST (test code = 2218) 24 U/L ALT (test code = 2219) 28 U/L bD FlanaganLIPID [id number] 00:00:00* Test Item Value Reference Range Interpretation Comme nts CHOLESTEROL (test code = 2210) 268 MG/DL TRIGLYCERIDES (test code = 2232) 339 MG/DL HDL CHOLESTEROL (test code = 2220) 41 MG/DL CALC LDL CHOL (test code = 2237) 159 MG/DL RISK RATIO LDL/HDL (test cod e = 2238) 3.88 RATIO Db FlanaganHEMOGLOBIN [id number] 00:00:00* Test Item Value Reference Range Interpretation Comme nts HEMOGLOBIN A1c (test code = 08424) 5.8 % Db FlanaganCOMPREHENSIVE METABOLIC [id number] 00:00:00* Test Item Value Reference Range Interpretation Comme nts GLUCOSE (test code = 2217) 87 MG/DL BUN (test code = 2208) 12 MG/DL CREATININE (test code = 2214) 0.83 MG/DL eGFR AMER. (test cod e = 45740) 101 ML/MIN/1.73 eGFR NON- AMER. (test code = 93079) 87 ML/MIN/1.73 CALC BUN/CREAT (test code = 2235) 14 RATIO SODIUM (test code = 2231) 143 MEQ/L POTASSIUM (test code = 2228) 4.3 MEQ/L CHLORIDE (test code = 2215) 101 MEQ/L CARBON DIOXIDE (test code = 2206) 27 MEQ/L CALCIUM (test code = 2209) 9.5 MG/DL PROTEIN, TOTAL (test code = 2229) 7.0 G/DL ALBUMIN (test code = 2201) 4.0 G/DL CALC GLOBULIN (test code = 2240) 3.0 G/DL CALC A/G RATIO (test code = 2234) 1.3 RATIO BILIRUBIN, TOTAL (test code = 2207) 0.2 MG/DL ALKALINE PHOSPHATASE (test code = 2204) 89 U/L AST (test code = 2218) 24 U/L ALT (test code = 2219) 28 U/L Db FlanaganLIPID [id number] 00:00:00* Test Item Value Reference Range Interpretation Comme nts CHOLESTEROL (test code = 2210) 268 MG/DL TRIGLYCERIDES (test code = 2232) 339 MG/DL HDL CHOLESTEROL (test code = 2220) 41 MG/DL CALC LDL CHOL (test code = 2237) 159 MG/DL RISK RATIO LDL/HDL (test cod e = 2238) 3.88 RATIO Db FlanaganHEMOGLOBIN [id number] 00:00:00* Test Item Value Reference Range Interpretation Comme nts HEMOGLOBIN A1c (test code = 83316) 5.8 % Db Tammy Panchito Notes Date/Time Note Provider Source Db Flanagan [facility]2024-03-07 00:00:00 [facility]2023-05-09 00:00:00 [facility]2023-03-02 00:00:00 [facility]2022-12-01 00:00:00 [facility]2022-09-06 00:00:00 [facility]2022-08-04 00:00:00 [facility]"
[2023-12-27] MEDS ORDERED: DIPHENHYDRAMINE 50 MG/ML VIAL ONE (06:32)
[2023-12-27] MEDS ORDERED: FAMOTIDINE 20 MG/2 ML VIAL IV ONE (06:32)
[2023-12-27] MEDS ORDERED: METHYLPREDNISOLONE 125 MG INJ ONE (06:32)
--- NOTE | 2023-12-27 07:24 | EDPHYS ---
Physician Documentation [facility] Name: Cady Connelly Age: 48 yrs Sex: Female : 1975 Arrival Date: 12/27/2023 Time: 06:15 Bed 5 Private MD: ED Physician Celestino Canseco HPI: 12/26 06:20 This 48 yrs old Female presents to ER via Unassigned with complaints of Rash, sp4 Itching. 23:24 28-year-old female presents with complaint of acute rash and itching starting at work sp4 after working with some chemicals. . 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 - Infectious Disease History:: Denies. - Social history:: Smoking status: Patient reports the use of cigarette tobacco products, smokes one pack cigarettes per day. - Family history:: not pertinent. ROS: 23:24 Constitutional: Negative for fever, chills, and weight loss, Eyes: Negative for injury, sp4 pain, redness, and discharge, ENT: Negative for injury, pain, and discharge, Neck: Negative for injury, pain, and swelling, Skin: Positive for itching , discomfort and diffuse rash 23:24 All other systems are negative, Exam: 23:24 Constitutional: This is a well developed, well nourished patient who is awake, alert, sp4 and in no acute distress. Head/Face: Normocephalic, atraumatic. Eyes: Pupils equal round and reactive to light, extra-ocular motions intact. Lids and lashes normal. Conjunctiva and sclera are not injected. Cornea within normal limits. Periorbital areas with no swelling, redness, or edema. ENT: Nares patent. No nasal discharge, no septal abnormalities noted. Tympanic membranes are normal and external auditory canals are clear. Oropharynx with no redness, swelling, or masses, exudates, or evidence of obstruction, uvula midline. Mucous membranes moist. Neck: Trachea midline, no thyromegaly or masses palpated, and no cervical lymphadenopathy. Supple, full range of motion without nuchal rigidity, or vertebral point tenderness. Chest/axilla: Normal chest wall appearance and motion. Nontender with no deformity. No lesions are appreciated. Cardiovascular: Regular rate and rhythm with a normal S1 and S2. No gallops, murmurs, or rubs. Normal PMI, no JVD. No pulse deficits. Respiratory: Lungs have equal breath sounds bilaterally, clear to auscultation and percussion. No rales, rhonchi or wheezes noted. No increased work of breathing, no retractions or nasal flaring. Abdomen/GI: Soft, with normal bowel sounds. No distension or tympany. No guarding or rebound. No evidence of tenderness throughout. Back: No spinal tenderness. No costovertebral tenderness. Skin: Warm, dry with normal turgor. Normal color with diffuse mild papular rash and generalized pruritis MS/ Extremity: Pulses equal, no cyanosis. Neurovascular intact. Full, normal range of motion. Neuro: Awake and alert, GCS 15, oriented to person, place, time, and situation. Cranial nerves II-XII grossly intact. Motor strength 5/5 in all extremities. Sensory grossly intact. Psych: Awake, alert, with orientation to person, place and time. Behavior, mood, and affect are within normal limits Vital Signs: 06:43 BP 120 / 79; Pulse 75; Resp 16; Pulse Ox 98% ; vc1 07:26 BP 106 / 67; Pulse 86; Resp 17; Pulse Ox 97% on R/A; ap3 [place] Coma Score: 23:24 Eye Response: spontaneous(4). Motor Response: obeys commands(6). Verbal Response: sp4 oriented(5). Total: 15. MDM: 06:26 Medical Screening Exam initiated sp4 23:24 Differential diagnosis: impetigo, varicella, allergic reaction, parasite infection. sp4 Data reviewed: vital signs, nurses notes. ED course: Improved after medications. Stable for discharge home. . 12/26 06:26 Order name: Saline Lock; Complete Time: 06:41 sp4 Administered Medications: 06:41 Drug: MethylPrednisoLONE IVP 125 mg IVP once Route: IVP; Site: right antecubital; vc1 06:53 Follow up: Response: No adverse reaction; Marked relief of symptoms vc1 06:41 Drug: Famotidine IVP 20 mg IVP once; dilute with 10 mL 0.9% NaCl; give over 2 minutes vc1 Route: IVP; Site: right antecubital; 06:53 Follow up: Response: No adverse reaction; Marked relief of symptoms vc1 06:41 Drug: diphenhydrAMINE IVP 50 mg IVP once Route: IVP; Site: right antecubital; vc1 06:53 Follow up: Response: No adverse reaction; Marked relief of symptoms vc1 Disposition Summary: 12/27/23 07:23 Discharge Ordered Notes: Location: Home sp4 Problem: new sp4 Symptoms: have improved sp4 Condition: Stable sp4 Diagnosis - Acute contact dermatitis,, Acute Allergic Reaction sp4 Followup: sp4 - With: Private Physician - When: 7 - 10 days - Reason: Recheck today's complaints Discharge Instructions: - Discharge Summary Sheet sp4 - Contact Dermatitis, [id number] sp4 Forms: - Patient Portal Instructions sp4 Prescriptions: - Benadryl 25 mg Oral capsule - take 2 capsule ORAL route every 8 hours As needed; 30 tablet; Refills: 0, sp4 Product Selection Permitted - Prednisone 20 mg Oral Tablet - take 2 tablets ORAL route once daily for 5 days; 10 tablet; Refills: 0, Product sp4 Selection Permitted Signatures: Any Pritchett RN RN vc1 Chanda Fowler RN RN ha1 Celestino Canseco MD MD sp4
--- NOTE | 2023-12-27 07:24 | ER ---
Nurse's Notes [facility] Name: Cady Connelly Age: 48 yrs Sex: Female : 1975 Arrival Date: 12/27/2023 Time: 06:15 Bed 5 Private MD: Diagnosis: Acute contact dermatitis,, Acute Allergic Reaction Presentation: 12/26 06:20 Chief complaint: Patient states: RASH THAT STARTED OVER SEVEN DAYS AGO, HAVE BEEN ha1 TAKING BENADRYL BUT IT IS NOT HELPING. 06:20 Coronavirus screen: Vaccine status: Patient reports receiving the 2nd dose of the covid ha1 vaccine. MODERNA. Ebola Screen: No symptoms or risks identified at this time. Onset: The symptoms/episode began/occurred 1 week(s) ago. Anaphylaxis evaluation, no signs or symptoms of anaphylaxis were noted. Initial Sepsis Screen: Does the patient meet any 2 criteria? No. Patient's initial sepsis screen is negative. Does the patient have a suspected source of infection? No. Patient's initial sepsis screen is negative. Risk Assessment: Do you want to hurt yourself or someone else? Patient reports no desire to harm self or others. Onset of symptoms was December 27, 2023. 06:20 Method Of Arrival: Ambulatory ha1 06:20 Acuity: ALEXANDRA 4 ha1 Triage Assessment: 06:20 General: Appears uncomfortable, Behavior is cooperative. Neuro: Level of Consciousness ha1 is awake, alert, obeys commands, Oriented to person, place, time, situation. Cardiovascular: Patient's skin is warm and dry. Respiratory: Airway is patent Respiratory effort is even, unlabored, Respiratory pattern is regular, symmetrical. Derm: Rash noted that is Reports itching. CLASSER: 07:40 LMP N/A - , Not ap3 Historical: - Allergies: 06:47 No Known Allergies; ha1 - PMHx: 06:47 diabetes mellitus; Hypercholesterolemia; Hypertension; ha1 - PSHx: 06:47 hysterectomy; kidney stent; Cholecystectomy; ha1 - Immunization history:: Adult Immunizations up to date. - Infectious Disease History:: Denies. - Social history:: Smoking status: Patient reports the use of cigarette tobacco products, smokes one pack cigarettes per day. - Family history:: not pertinent. Screenin:53 [facility] ED Fall Risk Assessment (Adult) History of falling in the last 3 months, vc1 including since admission No falls in past 3 months (0 pts) Confusion or Disorientation No (0 pts) Intoxicated or Sedated No (0 pts) Impaired Gait No (0 pts) Mobility Assist Device Used No (0 pt) Altered Elimination No (0 pt) Score/Fall Risk Level 0 - 2 = Low Risk Oriented to surroundings, Maintained a safe environment, Educated pt \T\ family on fall prevention, incl call for assistance when getting out of bed. Abuse screen: Denies threats or abuse. Nutritional screening: No deficits noted. Tuberculosis screening: No symptoms or risk factors identified. Assessment: 06:42 General: Appears in no apparent distress. uncomfortable, obese, well groomed, well vc1 developed, well nourished, Behavior is calm, cooperative, appropriate for age. Pain: Denies pain. Neuro: Level of Consciousness is awake, alert, obeys commands, Oriented to person, place, time, situation, Appropriate for age. Cardiovascular: Heart tones S1 S2 present Patient's skin is warm and dry. Respiratory: Airway is patent Respiratory effort is even, unlabored, Breath sounds are clear bilaterally. GI: No deficits noted. No signs and/or symptoms were reported involving the gastrointestinal system. : No deficits noted. EENT: No deficits noted. No signs and/or symptoms were reported regarding the EENT system. Derm: Rash noted that is itchy, red, raised, on chest, abdomen, anterior aspect of left shoulder and posterior aspect of left shoulder Reports itching. Musculoskeletal: No deficits noted. No signs and/or symptoms reported regarding the musculoskeletal system. Circulation, motion, and sensation intact. Range of motion: intact in all extremities. 07:25 General: Appears uncomfortable, Behavior is calm, cooperative, appropriate for age. ap3 Pain: Denies pain. Neuro: Level of Consciousness is awake, alert, obeys commands, Oriented to person, place, time, situation, Appropriate for age. Cardiovascular: Patient's skin is warm and dry. Respiratory: Airway is patent Respiratory effort is even, unlabored. Derm: Rash noted that is itchy, red, raised, on left arm and abdomen and chest and posterior aspect of left shoulder and anterior aspect of left shoulder. Vital Signs: 06:43 BP 120 / 79; Pulse 75; Resp 16; Pulse Ox 98% ; vc1 07:26 BP 106 / 67; Pulse 86; Resp 17; Pulse Ox 97% on R/A; ap3 [place] Coma Score: 23:24 Eye Response: spontaneous(4). Motor Response: obeys commands(6). Verbal Response: sp4 oriented(5). Total: 15. ED Course: 06:17 Patient arrived in ED. [email or web address] 06:20 Celestino Canseco MD is Attending Physician. sp4 06:42 Inserted saline lock: 20 gauge in right antecubital area, using aseptic technique. vc1 Flushed with 10 mL NS. 06:47 Triage completed. ha1 06:53 Any Pritchett, CATHERINE is Primary Nurse. vc1 06:54 Arm band placed on right wrist. vc1 06:55 Patient has correct armband on for positive identification. Bed in low position. Call vc1 light in reach. Pulse ox on. NIBP on. 07:40 No provider procedures requiring assistance completed. IV discontinued, intact, ap3 bleeding controlled, No redness/swelling at site. Pressure dressing applied. 07:40 Provided Education on: discharge instructions. ap3 Administered Medications: 06:41 Drug: MethylPrednisoLONE IVP 125 mg IVP once Route: IVP; Site: right antecubital; vc1 06:53 Follow up: Response: No adverse reaction; Marked relief of symptoms vc1 06:41 Drug: Famotidine IVP 20 mg IVP once; dilute with 10 mL 0.9% NaCl; give over 2 minutes vc1 Route: IVP; Site: right antecubital; 06:53 Follow up: Response: No adverse reaction; Marked relief of symptoms vc1 06:41 Drug: diphenhydrAMINE IVP 50 mg IVP once Route: IVP; Site: right antecubital; vc1 06:53 Follow up: Response: No adverse reaction; Marked relief of symptoms vc1 Medication: 06:54 VIS not applicable for this client. vc1 Outcome: 07:23 Discharge ordered by . sp4 07:40 Discharged to home ambulatory, ap3 07:40 Condition: good 07:40 Discharge instructions given to patient, Instructed on discharge instructions, follow up and referral plans. medication usage, Demonstrated understanding of instructions, follow-up care, medications, Prescriptions given X 2, 07:40 Patient left the ED. ap3 Signatures: Gaviota Whitmore RN RN ap3 Shanti Matthews [email or web address] Any Pritchett RN RN vc1 Chanda Fowler RN RN ha1 Celestino Canseco MD MD sp4
[2023-12-27 13:23] VITALS: BP 106/67; O2SAT 97
== END 2023-12-27 07:40 | disposition home or self-care (01) ==
LOC: ER 06:15
DX: L25.9 Unspecified contact dermatitis, unspecified cause (principal)
CPT/HCPCS: 96374; 96375; 99284; J1200; J2919

== ENCOUNTER 2024-05-18 05:13 | Inpatient (IN) | payer BC, OTHER, SELFPAY ==
--- OUTSIDE RECORDS SUMMARY | 2024-05-18 05:16 | XMS REPORT | Clinical Summary ---
Author Name Unknown Organization [facility] [place] Address [address] [place] [address] Care Team Providers Care Laboratory Animal Care Veterinarian Name Role Phone Unavailable Primary Care Provider Unavailabl e Encounters Date Type Department Care Team Description 01/27/2024 12:05 PM GLASSWORKER Ancillary Procedure Mobile Mammography [address] [place], [place] [id number] Onofre Vieyra MD Screening mammography 01/22/2024 Documentation Breast Imaging [address] [facility], [address] [place] [address] Eli Pereira, RT after 05/19/2023 Surgical History Surgery Date Site/Laterality Comments HYSTERECTOMY 03/10/2009 - 03/09/2010 TUBAL LIGATION 03/10/2001 - 03/09/2002 Bilateral Family History Medical History Relation Name Comments Liver cancer Paternal Grandmother Relation Name Status Comments Paternal Grandmother Social History Tobacco Use Types Packs/Day Years Used Date Smoking Tobacco: Never Assessed Comments No Sex and Gender Information Value Date Recorded Sex Assigned at Not on file Legal Sex Female 7:30 AM GLASSWORKER Gender Identity Not on file Sexual Orientation Not on file Obstetrics History Para Term AB IAB SAB Ectopic Multiple Livin g Live Births 4 4 4 Date Outcome GA Total Labor Labor/2nd/3rd Weight Sex Type Anes PTL [place] A1 A5 Name Clin Term Term Term Term Plan of Treatment Health Maintenance Due Date Last Done Comments COVID-19 Vaccine (2023-2 5 season) 2023 Influenza Vaccine (#1) 2023 Pneumococcal Vaccine Aged Out No long er eligible based on patient's age to complete this topic Procedures Procedure Name Priority Date/Time Associated Diagnosis Comments MOBILE MAMMO DIGITAL SCREENING BILATERAL W MARCO A Routine 01/27/2024 12:19 PM GLASSWORKER Screening mammography after 05/19/2023 Results * Mobile Mammography Screening Bilateral with Marco A (01/27/2024 12:19 PM GLASSWORKER) Anatomical Region Laterality Modality Breast Bilateral Mammography Impressions 01/27/2024 3:44 PM GLASSWORKER There is no mammographic evidence of malignancy. Overall BI-RAD Category: 1 - Negative Return to Annual Screening Mammography is recommended. The patient completed a breast cancer risk assessment during her appointment utilizing the Jennifer model. Based upon the information provided, their calculated lifetime risk of the developing breast cancer is 6.62%. If the calculated lifetime risk of breast cancer exceeds 20%, supplemental screening with breast MRI should be considered. Narrative 01/27/2024 3:44 PM GLASSWORKER CLINICAL INDICATION: Patient is a 48 y.o. female and is seen for screening. Mobile Mammography Screening Bilateral with Marco A Computer-aided detection was utilized by the radiologist in the interpretation of this examination. Tomosynthesis was performed in CC and MLO projections. COMPARISON: No comparisons were made when reading this study. FINDINGS: The breasts are almost entirely fatty. There is no mammographic evidence of malignancy. Ameena White [facility] MAMMOGRAPHY ORDERABLES Final Result after 05/19/2023
[2024-05-18] MEDS ORDERED: NA CHLORIDE 0.9% 1,000 ML ONE ×2 (05:50→08:00)
[2024-05-18] MEDS ORDERED: ONDANSETRON 4 MG/2 ML VIAL ONE ×2 (05:50→11:28)
[2024-05-18] MEDS ORDERED: MORPHINE 4 MG/ML SYR ONE ×2 (05:50→06:23)
[2024-05-18 05:55] LABS: Absolute Basophils 0.1 K/uL (0-0.5); Absolute Eosinophils 0.1 K/uL (0-0.5); Absolute Lymphocytes (CBC) 3.9 K/uL (0.7-4.9); Absolute Monocytes 0.9 K/uL (0.1-1.3); Absolute Neutrophil 12.4 K/uL (1.8-8.0); Basophils % 0.5 % (0-1.3); Eosinophils % 0.5 % (0-4.4); Hematocrit 43.1 % (36.0-45.0); Hemoglobin 14.2 g/dL (12.0-15.0); Lymphocytes % 22.5 % (15.3-44.8); MCH 30.2 pg (27.0-35.0); MCHC 32.9 g/dL (32.0-36.0); MCV 91.8 fL (80-100); MPV 9.1 fL (7.6-11.3); Monocytes % 5.5 % (3.3-12.3); Platelets 396 thou/uL (152-406); Red Cell Distribution Width 13.7 % (12.1-15.2)
[2024-05-18 06:18] LABS: Albumin 3.8 g/dL (3.4-5.0); Anion Gap 13.6 mEq/L (5.0-15.0); Bilirubin Total 0.4 mg/dL (0.2-1.0); Potassium 3.6 mEq/L (3.5-5.1); Protein, Total 7.8 g/dL (6.4-8.2)
[2024-05-18] MEDS ORDERED: HYDROMORPHONE HCL 1 MG/ML INJ ONE (07:34)
--- NOTE | 2024-05-18 08:34 | RAD REPORT ---
EXAMINATION: CT Abdomen Pelvis W Contrast CLINICAL INDICATION: Female, 48 years old. ABD PAIN TECHNIQUE: CT abdomen and pelvis was performed, after the administration of IV contrast, as per [facility] protocol. Axial, sagittal and coronal reconstructions were obtained. One or more of the following dose reduction techniques were used: Automated exposure control, adjustment of the mA and k V according to patient size, and iterative reconstruction. Unless otherwise specified, incidental findings do not require dedicated imaging follow-up. COMPARISON: 07/03/2015 FINDINGS: LOWER CHEST: The visualized lung bases are clear. LIVER: Mild fatty liver is present. No focal lesion or biliary dilataion is seen. BILIARY SYSTEM: Status post cholecystectomy. SPLEEN: Normal size. No focal lesion. PANCREAS: No mass, ductal dilation, or rafat-pancreatic fluid. ADRENALS: Normal; no mass. KIDNEYS: Atrophic changes of the right kidney. Right lower pole 2.4 cm cyst. No hydronephrosis. URINARY BLADDER: Unremarkable. GASTROINTESTINAL TRACT: Prominent wall thickening/edema along the gastric antrum, tracking also along the gastric body. Periadventitial edema along the greater curvature at the level of the distal body with some fluid tracking along the omentum. Edema also seen along the adventitia of the antrum a t the level of the locules of gas. Locules of free air track towards the liver hilum. Mild perihepatic ascites. No evidence of bowel obstruction or discrete fluid collections. APPENDIX: Normal appendix. LYMPH NODES: No lymphadenopathy. MUSCULOSKELETAL: No acute or suspicious osseous abnormality. ADDITIONAL FINDINGS: Left adnexal 4.3 cm cyst. IMPRESSION: Findings suggesting a perforated peptic ulcer with wall and variant interstitial edema of the distal stomach, and free air tracking from the lesser curvature at the level of the antrum towards the hepatic hilum. Findings suggest that site of the ulcer may be along the antrum lesser curvature. Mild perihepatic free fluid. No appreciable fluid collections. Other incidental findings as above. THIS REPORT CONTAINS FINDINGS THAT MAY BE CRITICAL TO PATIENT CARE. The findings were verbally commun icated via telephone to Nito Adams M.D. on 05/18/2024 8:26 AM.
[2024-05-18] MEDS ORDERED: PANTOPRAZOLE 40 MG INJ ONE (08:35)
[2024-05-18] MEDS ORDERED: NA CHLORIDE 0.9% 100 ML ONE (08:35)
[2024-05-18] MEDS ORDERED: PIPERACIL/TAZO 3.375 GM VIAL IV ONE (08:36)
--- NOTE | 2024-05-18 08:41 | EDPHYS ---
Physician Documentation [facility] Name: Cady Connelly Age: 48 yrs Sex: Female : 1975 Arrival Date: 05/18/2024 Time: 05:13 Bed 13 Private MD: ED Physician Nito Adams HPI: 05/18 05:41 This 48 yrs old Female presents to ER via Wheelchair with complaints of Pain All Over. rt 05:41 Patient presents to the ED with epigastric pain with nausea vomiting, diaphoresis rt starting 1 day ago, denies aggravating or alleviating factors. Symptoms are moderate in severity, nonradiating, no other aggravating or alleviating factors.. 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 - Infectious Disease History:: Denies. - Social history:: Smoking status: Patient reports the use of cigarette tobacco products, denies chronic smoking, but will smoke occasionally, Patient/guardian denies using alcohol, street drugs. - Family history:: not pertinent. ROS: 05:41 Constitutional: Negative for fever, chills, and weight loss, Cardiovascular: Negative rt for chest pain, palpitations, and edema, Respiratory: Negative for shortness of breath, cough, wheezing, and pleuritic chest pain, MS/Extremity: Negative for injury and deformity, Skin: Negative for injury, rash, and discoloration, 05:41 Abdomen/GI: Positive for abdominal pain, nausea and vomiting, Exam: 05:41 Constitutional: This is a well developed, well nourished patient who is awake, alert, rt and in no acute distress. Head/Face: Normocephalic, atraumatic. Chest/axilla: Normal chest wall appearance and motion. Nontender with no deformity. No lesions are appreciated. Cardiovascular: Regular rate and rhythm with a normal S1 and S2. No gallops, murmurs, or rubs. Normal PMI, no JVD. No pulse deficits. Respiratory: Lungs have equal breath sounds bilaterally, clear to auscultation and percussion. No rales, rhonchi or wheezes noted. No increased work of breathing, no retractions or nasal flaring. 05:41 Abdomen/GI: Tenderness to the epigastrium without rebound, guarding, distention, 05:49 ECG was reviewed by the Attending Physician. rt Vital Signs: 05:25 BP 126 / 94; Pulse 111; Resp 16 S; Temp 97.6(O); Pulse Ox 98% on R/A; Weight 108.41 kg lg3 (R); Height 5 ft. 4 in. (R); Pain 10/10; 06:09 BP 112 / 71; Pulse 91; Resp 15; Pulse Ox 95% on 2 lpm NC; br2 06:16 BP 107 / 77; Pulse 94; Resp 20 S; Pulse Ox 96% on 2 lpm NC; br2 06:20 BP 107 / 77; Pulse 102; Resp 18 S; Pulse Ox 93% on 2 lpm NC; Pain 10/10; br2 06:53 BP 143 / 88; Pulse 117; Resp 22 S; Pulse Ox 96% on 2 lpm NC; br2 07:43 BP 119 / 82; Pulse 99; Resp 14 S; Pulse Ox 97% on 2 lpm NC; kc6 08:51 BP 110 / 73; Pulse 94; Resp 18 S; Pulse Ox 94% on 2 lpm NC; kc6 05:25 Body Mass Index 41.02 (108.41 kg, 162.56 cm) lg3 05:25 Pain Scale: Adult lg3 06:20 Pain Scale: Adult br2 MDM: 05:19 Medical Screening Exam initiated rt 08:39 Differential Diagnosis Gastritis, pancreatitis, gastric ulcer, perforated ulcer. Data rn reviewed: vital signs, nurses notes, lab test result(s), radiologic studies, CT scan, and as a result, I will admit patient. Consideration of Admission/Observation Patient was admitted/placed on observation. Escalation of care including admission/observation considered. Management of patient was discussed with the following: Hair Designer: Discussed case with Dr. Alves, will take to OR and evaluate shortly.. Counseling: I had a detailed discussion with the patient and/or guardian regarding the historical points, exam findings, and any diagnostic results supporting the discharge/admit diagnosis, lab results, the need for further work-up and treatment in the hospital. Response to treatment: the patient's symptoms have mildly improved after treatment, and as a result, I will admit patient. 05/18 05:23 Order name: CBC with Diff; Complete Time: 06:19 rt 05/18 05:23 Order name: CMP; Complete Time: 06:19 rt 05/18 05:23 Order name: Lipase; Complete Time: 06:19 rt 05/18 05:23 Order name: Troponin High Sensitivity; Complete Time: 06:19 rt 05/18 06:09 Order name: Glucose, Ancillary Testing; Complete Time: 06:19 EDMS 05/18 09:20 Order name: CBC with Automated Diff EDMS 05/18 09:20 Order name: CBC with Automated Diff EDMS 05/18 09:21 Order name: Urinalysis w/ reflexes EDMS 05/18 09:21 Order name: CBC with Automated Diff EDMS 05/18 09:21 Order name: CBC with Automated Diff EDMS 05/18 09:21 Order name: CBC with Automated Diff EDMS 05/18 09:21 Order name: CBC with Automated Diff EDMS 05/18 09:21 Order name: CBC with Automated Diff EDMS 05/18 09:21 Order name: CBC with Automated Diff EDMS 05/18 09:21 Order name: Comprehensive Metabolic Panel EDMS 05/18 09:21 Order name: Comprehensive Metabolic Panel EDMS 05/18 09:21 Order name: Comprehensive Metabolic Panel EDMS 05/18 09:21 Order name: Comprehensive Metabolic Panel EDMS 05/18 09:21 Order name: Comprehensive Metabolic Panel EDMS 05/18 09:21 Order name: Comprehensive Metabolic Panel EDMS 05/18 09:21 Order name: Comprehensive Metabolic Panel EDMS 05/18 09:21 Order name: Comprehensive Metabolic Panel EDMS 05/18 09:21 Order name: Magnesium EDMS 05/18 09:21 Order name: Magnesium EDMS 05/18 09:21 Order name: Magnesium EDMS 05/18 09:21 Order name: Magnesium EDMS 05/18 09:21 Order name: Magnesium EDMS 05/18 09:21 Order name: Magnesium EDMS 05/18 09:21 Order name: Magnesium EDMS 05/18 09:21 Order name: Magnesium EDMS 05/18 09:21 Order name: Phosphorus EDMS 05/18 09:21 Order name: Phosphorus EDMS 05/18 09:21 Order name: Phosphorus EDMS 05/18 09:21 Order name: Phosphorus EDMS 05/18 09:21 Order name: Phosphorus EDMS 05/18 09:21 Order name: Phosphorus EDMS 05/18 09:21 Order name: Phosphorus EDMS 05/18 09:21 Order name: Phosphorus EDMS 05/18 05:23 Order name: CT Abd/Pelvis - IV Contrast Only; Complete Time: 08:36 rt 05/18 05:23 Order name: EKG; Complete Time: 05:24 rt 05/18 09:20 Order name: CONS Physician Consult EDSC 05/18 05:23 Order name: IV Saline Lock; Complete Time: 05:59 rt 05/18 05:23 Order name: Labs collected and sent; Complete Time: 05:59 rt 05/18 05:23 Order name: EKG - Nurse/Tech; Complete Time: 05:58 rt EC:49 Rate is 105 beats/min. Rhythm is regular, Sinus tachycardia with No ectopy. QRS [place] is rt Normal. VT interval is normal. QRS interval is normal. QT interval is normal. No Q waves. T waves are Normal. No ST changes noted. Interpreted by me. Administered Medications: 05:58 Drug: NS 0.9% IV 1000 ml IV at 1 bolus Per protocol; to be given as a bolus over 60 br2 minutes Route: IV; Rate: 1 bolus; Site: right wrist; 07:26 Follow up: Response: No adverse reaction; IV Status: Completed infusion; IV Intake: kc6 1000ml 05:59 Drug: Ondansetron IVP 4 mg IVP once; over 2 minutes Route: IVP; Site: left wrist; br2 06:15 Follow up: Response: No adverse reaction br2 05:59 Drug: morphine IVP or IV 4 mg IVP once over 4 mins Route: IVP; Infused Over: 4 mins; br2 Site: left wrist; 06:15 Follow up: Response: No adverse reaction; Pain is decreased br2 06:26 Drug: morphine IVP or IV 4 mg IVP once over 4 mins Route: IVP; Infused Over: 4 mins; br2 Site: left wrist; 07:26 Follow up: Response: No adverse reaction; Pain is unchanged, physician notified; RASS: kc6 Restless (+1) 07:43 Drug: HYDROmorphone IVP 1 mg IVP once Route: IVP; Site: left wrist; kc6 08:04 Follow up: Response: No adverse reaction; Pain is decreased; RASS: Alert and Calm (0) 6 08:09 Drug: NS 0.9% IV 1000 ml IV at 1000 ml once; to be given as a bolus over 60 minutes kc6 Route: IV; Rate: 1000 ml; Site: left wrist; 09:04 Follow up: Response: No adverse reaction; IV Status: Completed infusion; IV Intake: kc6 1000ml 08:40 Drug: Pantoprazole IVP 40 mg IVP once Route: IVP; Site: left wrist; 09:05 Follow up: Response: No adverse reaction [facility] 08:46 Drug: Piperacillin-Tazobactam IVPB 3.375 grams IVPB once over 60 mins; (mix in NS 100 ss mL) Route: IVPB; Infused Over: 60 mins; Site: left wrist; 09:17 Follow up: Response: No adverse reaction; IV Status: Completed infusion; IV Intake: kc6 100ml 09:14 Drug: Pantoprazole IV 8 mg/hr IV at 25 ml/hr continuous; (Standard dilution is 80 mg in kc6 250 mL NS) Route: IV; Rate: 25 ml/hr; Site: left hand; 09:40 Follow up: Response: No adverse reaction; IV Status: Infusion continued upon admission; kc6 IV Intake: 250ml Disposition Summary: 05/18/24 08:41 Hospitalization Ordered Notes: Hospitalization Status: Inpatient Admission rn Location: Telemetry/[facility] (Inpatient) rn Condition: Stable rn Problem: new rn Symptoms: have improved rn Bed/Room Type: Standard rn Provider: Tabitha Nice(05/18/24 09:04) rn Room Assignment: [facility](05/18/24 09:35) bd Diagnosis - Acute gastric ulcer with perforation rn Forms: - Medication Reconciliation Form rn - SBAR form rn - Leadership Thank You Letter rn Signatures: Dispatcher [employer] Edwina Bobo Roman, MD MD rn Blanchard, Shelby, RN RN ss Able, Lacie, RN RN lg3 Yomaira Beavers RN RN kc6 Morgan Gilliam MD MD rt Emma, Juani, RN RN br2 Corrections: (The following items were deleted from the chart) 09:04 08:41 Buster Adams rn rn 09:35 08:41 aubrey olson
--- NOTE | 2024-05-18 08:41 | ER ---
Nurse's Notes [facility] Name: Cady Connelly Age: 48 yrs Sex: Female : 1975 Arrival Date: 05/18/2024 Time: 05:13 Bed 13 Private MD: Diagnosis: Acute gastric ulcer with perforation Presentation: 05/18 05:25 Chief complaint: Patient states: upper abdominal pain and vomiting X1 day. Coronavirus lg3 screen: Client denies travel out of the [place] in the last 14 days. At this time, the client does not indicate any symptoms associated with coronavirus-19. Ebola Screen: No symptoms or risks identified at this time. Initial Sepsis Screen: Does the patient meet any 2 criteria? No. Patient's initial sepsis screen is negative. Does the patient have a suspected source of infection? No. Patient's initial sepsis screen is negative. Risk Assessment: Do you want to hurt yourself or someone else? Patient reports no desire to harm self or others. Onset of symptoms was May 17, 2024. 05:25 Method Of Arrival: Wheelchair lg3 05:25 Acuity: ALEXANDRA 3 lg3 Triage Assessment: 05:26 General: Appears in no apparent distress. uncomfortable, Behavior is cooperative, lg3 fussy, restless. Pain: Complains of pain in right upper quadrant and left upper quadrant Pain currently is 10 out of 10 on a pain scale. Noted to be agitated, grimacing, guarding, moaning, restless, Also complains of diaphoresis. EENT: No deficits noted. No signs and/or symptoms were reported regarding the EENT system. Neuro: Parnell Agitation-Sedation Scale (RASS): +1 Restless Level of Consciousness is awake, alert, obeys commands, Oriented to person, place, time, situation. Cardiovascular: No deficits noted. Denies chest pain, shortness of breath, Capillary refill < 3 seconds Clubbing of nail beds is absent JVD is absent Patient's skin is warm and dry. Respiratory: No deficits noted. Airway is patent Respiratory effort is even, unlabored, Respiratory pattern is regular, symmetrical. GI: Abdomen is round non-distended, obese, Abd is soft X 4 quads Abdomen is tender to palpation in right upper quadrant and left upper quadrant Reports upper abdominal pain, nausea, vomiting. : No signs and/or symptoms were reported regarding the genitourinary system. Derm: Skin is intact, is healthy with good turgor, Skin is diaphoretic, Skin is normal, Skin temperature is cool. Musculoskeletal: No deficits noted. No signs and/or symptoms reported regarding the musculoskeletal system. Circulation, motion, and sensation intact. Range of motion: intact in all extremities. 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 - Infectious Disease History:: Denies. - Social history:: Smoking status: Patient reports the use of cigarette tobacco products, denies chronic smoking, but will smoke occasionally, Patient/guardian denies using alcohol, street drugs. - Family history:: not pertinent. Screenin:30 [facility] ED Fall Risk Assessment (Adult) History of falling in the last 3 months, lg3 including since admission No falls in past 3 months (0 pts) Confusion or Disorientation No (0 pts) Intoxicated or Sedated No (0 pts) Impaired Gait No (0 pts) Mobility Assist Device Used No (0 pt) Altered Elimination No (0 pt) Score/Fall Risk Level 0 - 2 = Low Risk Oriented to surroundings, Maintained a safe environment, Educated pt \T\ family on fall prevention, incl call for assistance when getting out of bed, Assessed \T\ reinforced patient's understanding of fall precautions. Abuse screen: Denies threats or abuse. Denies injuries from another. Nutritional screening: No deficits noted. Tuberculosis screening: No symptoms or risk factors identified. Assessment: 05:30 Reassessment: Patient is alert, oriented x 3, equal unlabored respirations, skin br2 warm/dry/pink. General: Appears uncomfortable, obese, Behavior is moaning, limited on answering questions. 07:12 General: Appears in no apparent distress. uncomfortable, well groomed, well developed, kc6 Behavior is cooperative, restless. Pain: Complains of pain in left upper quadrant and right upper quadrant Noted to be moaning, restless. Neuro: Level of Consciousness is awake, alert, obeys commands, Oriented to person, place, time, situation, Appropriate for age. Cardiovascular: Denies chest pain, shortness of breath, Heart tones S1 S2 present Capillary refill < 3 seconds Rhythm is sinus tachycardia. Respiratory: Airway is patent Trachea midline Respiratory effort is even, unlabored, Respiratory pattern is regular, symmetrical. : No signs and/or symptoms were reported regarding the genitourinary system. EENT: No signs and/or symptoms were reported regarding the EENT system. Derm: No signs and/or symptoms reported regarding the dermatologic system. Skin is intact, is healthy with good turgor, Skin is pink, warm \T\ dry. Musculoskeletal: No signs and/or symptoms reported regarding the musculoskeletal system. Circulation, motion, and sensation intact. Range of motion: intact in all extremities. 07:12 GI: Abdomen is round non-distended, Bowel sounds present X 4 quads. Abd is soft X 4 kc6 quads Abdomen is tender to palpation in epigastric area, right upper quadrant and right lower quadrant Reports lower abdominal pain, upper abdominal pain, nausea, vomiting, Patient currently denies constipation, diarrhea. 08:45 Reassessment: Patient appears in no apparent distress at this time. No changes from kc6 previously documented assessment. Patient and/or family updated on plan of care and expected duration. Pain level reassessed. Patient is alert, oriented x 3, equal unlabored respirations, skin warm/dry/pink. Vital Signs: 05:25 BP 126 / 94; Pulse 111; Resp 16 S; Temp 97.6(O); Pulse Ox 98% on R/A; Weight 108.41 kg lg3 (R); Height 5 ft. 4 in. (R); Pain 10/10; 06:09 BP 112 / 71; Pulse 91; Resp 15; Pulse Ox 95% on 2 lpm NC; br2 06:16 BP 107 / 77; Pulse 94; Resp 20 S; Pulse Ox 96% on 2 lpm NC; br2 06:20 BP 107 / 77; Pulse 102; Resp 18 S; Pulse Ox 93% on 2 lpm NC; Pain 10/10; br2 06:53 BP 143 / 88; Pulse 117; Resp 22 S; Pulse Ox 96% on 2 lpm NC; br2 07:43 BP 119 / 82; Pulse 99; Resp 14 S; Pulse Ox 97% on 2 lpm NC; kc6 08:51 BP 110 / 73; Pulse 94; Resp 18 S; Pulse Ox 94% on 2 lpm NC; kc6 05:25 Body Mass Index 41.02 (108.41 kg, 162.56 cm) lg3 05:25 Pain Scale: Adult lg3 06:20 Pain Scale: Adult br2 ED Course: 05:15 Patient arrived in ED. gm2 05:16 Morgan Gilliam MD is Attending Physician. rt 05:19 Morgan Gilliam MD is Attending Physician. rt 05:26 Triage completed. lg3 05:26 Arm band placed on right wrist. lg3 05:28 Radiology exam delayed due to lab results not completed at this time. (BUN/Creatinine). vm2 05:30 Patient has correct armband on for positive identification. Placed in gown. Bed in low lg3 position. Call light in reach. Side rails up X 1. Client placed on continuous cardiac and pulse oximetry monitoring. NIBP monitoring applied. Door closed. Noise minimized. Warm blanket given. Pillow given. Family accompanied patient. 05:34 Missed attempt(s): 20 gauge in right forearm. Bleeding controlled, band aid applied, rv1 catheter tip intact. 05:34 Missed attempt(s): 22 gauge in right forearm. Bleeding controlled, band aid applied, rv1 catheter tip intact. 05:40 EKG done, by ED staff, reviewed by Morgan Gilliam MD. sa1 05:57 Juani Biggs, RN is Primary Nurse. br2 05:58 Inserted saline lock: 22 gauge in left wrist, using aseptic technique. br2 05:58 Missed attempt(s): 20 gauge in left forearm. br2 05:59 Troponin High Sensitivity Sent. br2 05:59 CBC with Diff Sent. br2 05:59 CMP Sent. br2 05:59 Lipase Sent. br2 06:51 CT Abd/Pelvis - IV Contrast Only In Process Unspecified. EDMS 07:00 Report received from Juani Biggs RN. kc6 07:06 Attending Physician role handed off by Morgan Gilliam MD rn 07:06 Nito Adams MD is Attending Physician. rn 07:25 Patient requests pain medication. kc6 08:40 Buster Adams MD is Hospitalizing Provider. rn 09:04 Tabitha Nice MD is Hospitalizing Provider. rn 09:19 Patient requests pain medication. kc6 09:39 No provider procedures requiring assistance completed. Patient admitted, IV remains in kc6 place. Administered Medications: 05:58 Drug: NS 0.9% IV 1000 ml IV at 1 bolus Per protocol; to be given as a bolus over 60 br2 minutes Route: IV; Rate: 1 bolus; Site: right wrist; 07:26 Follow up: Response: No adverse reaction; IV Status: Completed infusion; IV Intake: kc6 1000ml 05:59 Drug: Ondansetron IVP 4 mg IVP once; over 2 minutes Route: IVP; Site: left wrist; br2 06:15 Follow up: Response: No adverse reaction br2 05:59 Drug: morphine IVP or IV 4 mg IVP once over 4 mins Route: IVP; Infused Over: 4 mins; br2 Site: left wrist; 06:15 Follow up: Response: No adverse reaction; Pain is decreased br2 06:26 Drug: morphine IVP or IV 4 mg IVP once over 4 mins Route: IVP; Infused Over: 4 mins; br2 Site: left wrist; 07:26 Follow up: Response: No adverse reaction; Pain is unchanged, physician notified; RASS: kc6 Restless (+1) 07:43 Drug: HYDROmorphone IVP 1 mg IVP once Route: IVP; Site: left wrist; kc6 08:04 Follow up: Response: No adverse reaction; Pain is decreased; RASS: Alert and Calm (0) 6 08:09 Drug: NS 0.9% IV 1000 ml IV at 1000 ml once; to be given as a bolus over 60 minutes [facility] Route: IV; Rate: 1000 ml; Site: left wrist; 09:04 Follow up: Response: No adverse reaction; IV Status: Completed infusion; IV Intake: kc6 1000ml 08:40 Drug: Pantoprazole IVP 40 mg IVP once Route: IVP; Site: left wrist; ss 09:05 Follow up: Response: No adverse reaction kc6 08:46 Drug: Piperacillin-Tazobactam IVPB 3.375 grams IVPB once over 60 mins; (mix in NS 100 ss mL) Route: IVPB; Infused Over: 60 mins; Site: left wrist; 09:17 Follow up: Response: No adverse reaction; IV Status: Completed infusion; IV Intake: kc6 100ml 09:14 Drug: Pantoprazole IV 8 mg/hr IV at 25 ml/hr continuous; (Standard dilution is 80 mg in kc6 250 mL NS) Route: IV; Rate: 25 ml/hr; Site: left hand; 09:40 Follow up: Response: No adverse reaction; IV Status: Infusion continued upon admission; 6 IV Intake: 250ml Medication: 09:39 VIS not applicable for this client. kc6 Intake: 07:26 IV: 1000ml; Total: 1000ml. kc6 09:04 IV: 1000ml; Total: 2000ml. kc6 09:17 IV: 100ml; Total: 2100ml. kc6 09:40 IV: 250ml; Total: 2350ml. 6 Outcome: 08:41 Decision to Hospitalize by Provider. rn 09:39 Admitted to OR accompanied by nurse, via stretcher, with oxygen, with chart, Report kc6 called to CATHERINE Sanchez 09:39 Condition: stable 09:39 Instructed on the need for admit, 09:40 Patient left the ED. [facility] Signatures: Dispatcher [employer] EDMS Nito Adams MD MD rn Blanchard, Shelby, RN RN Kassy Ewing 2 Sera Matias RN RN lg3 Yomaira Beavers RN RN kc6 Morgan Gilliam MD MD rt Villegas, Rebecca rv1 Holli Iverson gm2 Sultan Makeda sa1 Juani Biggs RN RN br2 Corrections: (The following items were deleted from the chart) 05:35 05:34 Missed attempt(s): 20 gauge in right forearm. Bleeding controlled, band aid rv1 applied, catheter tip intact. rv1 06:27 06:20 BP 107 / 77; Pulse 102bpm; Resp 18bpm; Pulse Ox 93% 2 lpm Nasal Cannula; Pain br2 12/17, Adult; br2
[2024-05-18] MEDS: PANTOPRAZOLE INJ 80 MG in NA CHLORIDE 0.9% 250 ML IV ONE (08:45)
[2024-05-18] MEDS ORDERED: ACETAMINOPHEN 325 MG TABLET PO PRN (09:11)
--- NOTE | 2024-05-18 09:26 | P.HP ---
Certification for Inpatient Patient admitted to: Inpatient With expected LOS: >2 Midnights Patient will require the following post-hospital care: None Practitioner: I am a practitioner with admitting privileges, knowledge of patient current condition, hospital course, and medical plan of care. Services: Services provided to patient in accordance with Admission requirements found in Title 42 Section 412.3 of the Code of Federal Regulations <Suzanne Jerome - Last Filed: 05/18/24 19:12> Patient History Date of Service: 05/18/24 Reason for admission: Acute perforated Gastric ulcer posteroir antrum History of Present Illness: Cady Connelly is a 48 year old female with Pmhx diabetes mellitus, Hypercholesterolemia, Hypertension who presents to the ED with severe epigastric pain associated with Nausea, vomiting, and diaphoresis that began on Friday, two days ago. She denies being diagnosed with acid reflux, GERD, or any ulcers in the past. She does report having a very stressful job. She reports she drank water at 3 AM otherwise she has been n.p.o. Laboratory evaluation significant for BUN/creatinine 23/1.33, GFR 49, serum glucose 238, WBC 17.4. CT abdomen pelvis reports "Findings suggesting a perforated peptic ulcer with wall and variant interstitial edema of the distal stomach, and free air tracking from the lesser curvature at the level of the antrum towards the hepatic hilum. Findings suggest that site of the ulcer may be along the antrum lesser curvature. " Dr. Alves has been consulted and evaluated with the decision to take her to immediate surgery. Cady will be admitted to hospitalist service for further treatment of Acute perforated Gastric ulcer posteroir antrum. - Past Medical/Surgical History Diabetic: No -: Kidney stones -: Diabetes melitisNIDDM -: Hypertension -: Hyperlipidemia -: renal stents -: lithrotripsy -: partial hysterectomy -: lap karthikeyan - Social History Alcohol use: Yes CD- Drugs: No Caffeine use: Yes <Suzanne Jerome - Last Filed: 05/18/24 19:12> Date of Service: 05/18/24 <Tabitha Nice - Last Filed: 05/18/24 23:50> Allergies No Known Allergies Allergy (Unverified 05/18/24 08:31) Home Medications: Atorvastatin Calcium [Lipitor] 80 mg PO BEDTIME 05/18/24 Ezetimibe 10 mg PO BEDTIME 05/18/24 Lisinopril/Hydrochlorothiazide [Lisinopril-Hctz 20-12.5 mg Tab] 1 each PO DAILY 05/18/24 Metformin HCl [Glucophage] 500 mg PO DAILY WITH BREAKFAST 05/18/24 buPROPion HCL [Wellbutrin Xl] 150 mg PO BID 05/18/24 Review of Systems Other: Per HPI <Suzanne Jerome - Last Filed: 05/18/24 19:12> Physical Examination - Physical Exam General: Alert, Oriented x3, Other (Uncomfortable) HEENT: Atraumatic, Normocephalic Neck: Supple, 2+ carotid pulse no bruit, JVD not distended Respiratory: Clear to auscultation bilaterally, Normal air movement Cardiovascular: No edema, Regular rate/rhythm, Normal S1 S2 Capillary refill: <2 Seconds Gastrointestinal: Normal bowel sounds, Tenderness (Epigastric and right upper quadrant pain) Musculoskeletal: No clubbing Integumentary: No breakdown Neurological: Normal speech, Normal tone - Studies Laboratory Data (last 24 hrs) 05/18/24 05/18/24 05:46 05:46 WBC 17.40 H Hgb 14.2 Hct 43.1 Plt Count 396 Sodium 138 Potassium 3.6 BUN 23 H Creatinine 1.33 H Glucose 238 H Total Bilirubin 0.4 AST 16 ALT 35 Alkaline Phosphatase 108 Lipase 121 H <Suzanne Jerome - Last Filed: 05/18/24 19:12> - Studies Laboratory Data (last 24 hrs) 05/18/24 05/18/24 05:46 05:46 WBC 17.40 H Hgb 14.2 Hct 43.1 Plt Count 396 Sodium 138 Potassium 3.6 BUN 23 H Creatinine 1.33 H Glucose 238 H Total Bilirubin 0.4 AST 16 ALT 35 Alkaline Phosphatase 108 Lipase 121 H <Tabitha Nice - Last Filed: 05/18/24 23:50> Assessment and Plan - Plan Assessment and plan Acute perforated Gastric ulcer posteroir antrum -Protonix drip -IV Zosyn -IV fluids -Pain control -Dr. Alves consulted -N.p.o. for surgery today, remain NPO -Serial abdominal exams -NGT and angulo catheter post op -incentive spirometry Diabetes mellitus-NIDDM -Accu-Chek with sliding scale insulin -Serum glucose 238 BLANCA -BUN/creatinine 23/1.33, GFR 49 -Gentle IVF -Monitor in AM labs Hypertension/hyperlipidemia -Continue home medications when appropriate DVT PPx SCDs, until cleared by Dr. Alves Full code LOS 2 to 3 days Discharge Plan: Home Plan to discharge in: 72 Hours - Advance Directives Does patient have a Living Will: No Does patient have a Durable POA for Healthcare: No <Suzanne Jerome - Last Filed: 05/18/24 19:12> Physician Review: Patient Assessed, Agree with Above Assessment and Plan <Tabitha Nice - Last Filed: 05/18/24 23:50>
[2024-05-18] MEDS: NA CHLORIDE 0.9% 1,000 ML ONE (09:40)
[2024-05-18] MEDS ORDERED: propofoL 200 MG/20 ML VIAL IV ONE (09:56)
[2024-05-18] MEDS ORDERED: FENTANYL CITR 250 MCG/5 ML ONE (09:56)
[2024-05-18] MEDS ORDERED: MIDAZOLAM HCL 2 MG/2 ML INJ ONE (09:56)
[2024-05-18] MEDS ORDERED: LIDOCAINE 2% MPF 5 ML VIAL ONE (09:56)
[2024-05-18] MEDS ORDERED: ROCURONIUM 50 MG/5 ML VIAL IV ONE (09:57)
[2024-05-18] MEDS: SUCCINYLCHOLINE 20 MG/ML (10 ML) IV ONE (10:06)
[2024-05-18] MEDS: NA CHLORIDE 0.9% 100 ML ONE (10:07)
[2024-05-18] MEDS ORDERED: Phenylephrine HCl 10 MG/ML 1 ML VIAL ONE (10:32)
--- NOTE | 2024-05-18 10:56 | EKG ---
Test Date: 2024-05-18 Test Time: 05:40:39 Agriculture Teacher: MEASUREMENT RESULTS: Intervals: Rate: 105 WV: 120 QRSD: 72 QT: 346 QTc: 457 Almond: P: 41 WV: 120 QRS: 32 T: 57 INTERPRETIVE STATEMENTS: Sinus tachycardia Otherwise normal ECG Compared to ECG 07/05/2016 15:14:27 Sinus rhythm no longer present Sinus arrhythmia no longer present Electronically Signed On 05-18-24 10:55:41 CDT by Boubacar Fong
[2024-05-18] MEDS: ROPLVACAINE HCL ONE (10:57)
[2024-05-18] MEDS: DEXMEDETOMIDINE HCL 200 MCG/2 ML VIAL ONE (10:57)
[2024-05-18] MEDS: SUGAMMADEX SODIUM 200 MG/2 ML VIAL IV ONE (11:11)
[2024-05-18] MEDS ORDERED: dexAMETHasone 10 MG/ML VIAL ONE (11:28)
--- NOTE | 2024-05-18 12:30 | CON ---
Date of Consultation: 05/18/2024 Diagnosis: Perforated gastric ulcer, pneumoperitoneum. Indications: This is the case of a 48-year-old patient, who came this morning complaining of epigast elieser pain, nausea, vomiting, diaphoretic, went to the ER, workup found to have a perforated gastric ul cer and a surgical consult was called immediately. She has been sick for about a week already, but s tone 3 o'clock this morning, she got worse. She does not remember eating anything good in the last f ew days because she felt sick. She has not smoked in a week. She has not drink in several months. There is no dysuria, hematuria, hematochezia, or melena. There is no recent traveling out of the [facility]. There is no family member sick at home. Review of Systems: Nausea, vomiting, abdominal pain. Ten points are otherwise unremarkable. Medications: Include Augmentin. Allergies: NONE. Past Medical History: Includes diabetes, hypertension, lithotripsy for kidney stones. Past Surgical History: Include hysterectomy, cholecystectomy, and lithotripsy. Social History: She smokes, although she has not smoked any in a week and she drinks alcohol occasio anjelica. She states in several months, she has not drank at all. Physical Examination: VITAL SIGNS: Heart rate 94, respirations 18, blood pressure reviewed. Afebrile. General: The patient is awake and alert. Pupils are equal and reactive. Anicteric. Neck: Supple. Chest: Clear. Heart: S1, S2. Abdomen: Epigastric and right upper quadrant tenderness with guarding and rebound. Breasts: Deferred. Rectal: Deferred. Pelvic: Deferred. Extremities: Good capillary refill. Neuro: Cranial nerves 2 through 12 grossly within normal limits. Laboratory Data: Blood work shows a WBC count of 17.4 with hemoglobin of 14.2 and platelets of 396. Sodium is 138, potassium is 3.6, chloride is 101, BUN is 23, creatinine is 1.33, total bilirubin of 0.4, lipase of 121, total bilirubin of 0.4. CAT scan of the abdomen and pelvis interpreted by Dr. Lloyd as findings suggestive of perforated pep tic ulcer with interstitial edema in the distal stomach, free air tracking from the lesser curvature. Assessment And Plan: This is a 48-year-old patient with peritonitis and perforated gastric ulcer. T he benefits, alternatives, and risks of exploratory laparotomy, emergent laparotomy, the repair of ga stric perforation were fully explained to the patient, which include, but not limited to infection, b leeding, damage to adjacent structures, anesthesia complication, peritonitis, abscess, [place], and even d eath. She also understands that even though the radiologist suggests the site of the perforation to be the stomach, there could be a situation of more organs are involved and then we have to proceed ac cordingly. We explained the importance of smoking cessation and also alcohol cessation, also losing weight. We expect this patient to be in critical care for the next several days. She understands th e risks also and the mortality rate of gastric perforated ulcer. She is aware of that. The daughter -in-law is with her and the person who signed the consent OR was emergently called. MIA/MARGO Voice ID: [id number] Report ID: [id number]
--- NOTE | 2024-05-18 12:33 | P.BOP ---
Preoperative diagnosis: perforated gastric ulcer, peritonitis Postoperative diagnosis: same Primary procedure: 1. Emergent exploratory laparotomy, 2.Primary repair of gastric perforation Secondary procedure: 3. Antony patch Estimated blood loss: <50cc Specimen: none Findings: perforated gastric ulcer posterior antrum Anesthesia: General Complications: None Drain(s): Nasogastric, Urinary catheter, KASSANDRA drain Transferred to: Recovery Room Condition: Good
[2024-05-18] MEDS: NA CHLORIDE 0.9% 1,000 ML IV SCH (13:42)
--- NOTE | 2024-05-18 13:54 | RAD REPORT ---
EXAM: XR of the abdomen HISTORY: Abdominal pain S/P NG TUBE PLACEMENT COMPARISON: None FINDINGS: XR of the abdomen shows tip of the enteric tube in the stomach.
[2024-05-18] MEDS ORDERED: ONDANSETRON 4 MG/2 ML VIAL IV PRN (13:58)
--- NOTE | 2024-05-18 14:59 | OP ---
Date of Procedure: 05/18/2024 Surgeon: Paul Alves MD Preoperative Diagnoses: Perforated gastric ulcer, peritonitis, pneumoperitoneum. Postoperative Diagnoses: Perforated gastric ulcer, peritonitis, pneumoperitoneum. Procedures: 1. Emergent exploratory laparotomy. 2. Primary repair of gastric ulcer perforation. 3. Antony omental patch. Estimated Blood Loss: Less than 50 cc. Specimen: None. Findings: Perforated gastric ulcer, posterior antrum. Anesthesia: General plus local. Complications: None. Estimated Blood Loss: Less than 50 cc. Drains: Include a nasogastric tube, urinary catheter, and KASSANDRA drain. Indications: This is a case of a 48-year-old patient who came to us with peritonitis and acute abdom inal pain, diagnosed with possible perforation, gastric ulcers. So the benefits, alternatives, and r isks of emergent laparotomy, possible gastric perforation repair fully explained, which include, but not limited to, infection, bleeding, damage to adjacent structures, anesthesia complication, abscess recurrence, [place], and even . She also understands this may not relieve any symptoms. She might n eed more than one surgical intervention. She understands, whenever she recover from this, she needs to find a souvenir and novelty maker to have a complete workup for peptic ulcer disease, since may have some ulcers in that area that may need to address and also may have to see if there is anything else or a neoplasia. She signed a consent. Description Of Procedure: The patient was emergently brought to the operating room, placed in supine position. Anesthesia was induced without complication. A time-out was called. Abdomen was prepped and draped in sterile fashion. Midline incision was made after a time-out. Incision was carried do wn to the fascia, which was opened under direct vision. Immediately, we noticed a gastric content co mikey from the upper abdomen. We noticed the person to have a perforation on the area of the antrum a t the area near the lesser curvature. We mobilized the area properly. No bleeding. We identified t he ulcer, irrigated the area profusely, proceeded to close that with the 0 silk multiple times and a primary closure of the ulcer and then after we closed that area, we put omental patch in that region. Profuse irrigation of the abdomen was done. The rest of abdomen is soft and depressible, intestine s that does not feel any masses in that area. Liver with no masses palpated. The rest of the stomac h is soft and compressible. The KASSANDRA drain will be left in that area exiting through one of the trocar sites and after profuse irrigation and suction, we proceeded then to obtain sponge counts and instru ment counts correct and then approximate the fascia with #2 nylon in a running fashion, irrigated sub cutaneous tissue, closed that with the chromic and then the skin with victor manuel. Sponge counts and ins trument counts correct. The NG tube was placed while we were doing the surgery to make sure there is no new perforation of intestines due to the NG tube, and the sponge counts and instrument counts cor rect at the end of the procedure. Patient tolerated the procedure well. Patient sent to Recovery in stable condition. Patient will be admitted to the intensive care unit. MIA/MARGO Voice ID: [id number] Report ID: [id number]
[2024-05-18] MEDS: HYDROMORPHONE HCL 1 MG/ML INJ IV PRN (16:44)
[2024-05-18] MEDS: PIPER TAZO 3.375 GM in NA CHLORIDE 0.9% 100 ML IV SCH (16:46)
[2024-05-18] MEDS ORDERED: PANTOPRAZOLE INJ 80 MG in NA CHLORIDE 0.9% 250 ML IV SCH (19:00)
[2024-05-18] MEDS: PANTOPRAZOLE INJ 80 MG in NA CHLORIDE 0.9% 250 ML IV SCH (21:06)
[2024-05-19 05:28] LABS: Absolute Basophils 0.1 K/uL (0-0.5); Absolute Lymphocytes (CBC) 1.9 K/uL (0.7-4.9); Absolute Monocytes 1.3 K/uL (0.1-1.3); Absolute Neutrophil 15.4 K/uL (1.8-8.0); Basophils % 0.5 % (0-1.3); Hematocrit 36.1 % (36.0-45.0); Hemoglobin 11.9 g/dL (12.0-15.0); MCH 31.1 pg (27.0-35.0); MCHC 32.9 g/dL (32.0-36.0); MCV 94.5 fL (80-100); MPV 8.8 fL (7.6-11.3); Monocytes % 6.9 % (3.3-12.3); Neutrophils % 82.6 % (41.7-73.7); Nucleated Red Blood Cells % 0.1 % (0-0); Platelets 265 thou/uL (152-406); RBC Red Blood Cell Count 3.82 M/uL (3.86-4.86); Red Cell Distribution Width 14.4 % (12.1-15.2)
[2024-05-19 05:57] LABS: Albumin 2.8 g/dL (3.4-5.0); Albumin/Globulin Ratio 0.8 (1.1-1.8); Anion Gap 8.2 mEq/L (5.0-15.0); Bilirubin Total 0.4 mg/dL (0.2-1.0); Globulin 3.4 g/dL (2.3-3.5); Phosphorus 3.3 mg/dL (2.5-4.9); Potassium 4.2 mEq/L (3.5-5.1); Protein, Total 6.2 g/dL (6.4-8.2)
[2024-05-19 06:18] VITALS: BMI 42.5
[2024-05-19] MEDS: D5 0.2 NS 1,000 ML IV SCH (08:44)
[2024-05-19] MEDS: HYDROMORPHONE HCL 1 MG/ML INJ IV PRN (08:44)
[2024-05-19 11:49] LABS: Specific Gravity 1.026 (1.005-1.030); Sqamous Epithelial <5 /HPF (None Seen); Urine Bacteria None Seen /HPF (<20); Urine Bilirubin NEGATIVE (Negative); Urine Blood 2+ (Negative); Urine Clarity Clear (Clear); Urine Color Light-Yellow (Yellow); Urine Culture Reflex Order NOT NEEDED; Urine Glucose NEGATIVE (Negative); Urine Ketones NEGATIVE (Negative); Urine Microscopic Reflex YN ORDER UMIC; Urine Nitrite NEGATIVE (Negative); Urine Protein TRACE (Negative); Urine RBC <5 /HPF (None Seen); Urine Urobilinogen Normal (Normal); Urine WBC <5 /HPF (<5)
--- NOTE | 2024-05-19 12:39 | P.PN ---
Subjective Date of Service: 05/19/24 Chief Complaint: Acute perforated Gastric ulcer, peritonitis Subjective: Improving Review of Systems General: Weakness Eyes: Unremarkable ENT: Unremarkable Respiratory: Unremarkable Cardiovascular: Unremarkable Gastrointestinal: Nausea, Abdominal Pain, Distention Physical Examination - Vital Signs Temperature: 98.9 F Blood Pressure: 118/57 Pulse: 116 Respirations: 24 Pulse Ox (%): 96 - Physical Exam General: Alert, In no apparent distress, Oriented x3, Cooperative HEENT: Normocephalic, PERRLA, EOMI Neck: Supple Respiratory: Normal air movement Cardiovascular: Normal pulses, Regular rate/rhythm Gastrointestinal: Hypoactive Musculoskeletal: No erythema, No tenderness Integumentary: No rashes, No breakdown Neurological: Normal speech - Studies Medications List Reviewed: Yes Assessment And Plan - Plan cont NGT/NPO OOB Incentive spirometry cont abx Consider PPN SCD May transfer to floor Physician Review: Patient Assessed, Agree with Above Assessment and Plan
[2024-05-19] MEDS ORDERED: AMINO AC 8 %/D10W/ELECTROLYTES 2,000 ML IV.SOLN IV SCH (13:00)
[2024-05-19] MEDS: FENTANYL 25 MCG/PATCH TD SCH (13:25)
--- NOTE | 2024-05-19 15:07 | P.PN ---
Date of Service: 05/19/24 Subjective Awake, continued pain to abdomen Abdominal dressing CDI NG tube clear yellow drainage ROS 10 point ROS as noted above, otherwise negative Physical Exam General: Alert, Oriented x3, Other (Uncomfortable) HEENT: Atraumatic, Normocephalic Neck: Supple, JVD not distended Respiratory: Clear to auscultation bilaterally, Normal air movement, on 2 L nasal cannula Cardiovascular: No edema, mild tachycardia, Normal S1 S2 Capillary refill: <2 Seconds Gastrointestinal: Normal bowel sounds, Tenderness (Epigastric and right upper quadrant pain), NGT, abdominal dressing CDI Musculoskeletal: No clubbing Integumentary: No breakdown Neurological: Normal speech, Normal tone Vitals Reviewed Problem list Acute perforated Gastric ulcer posteroir antrum Diabetes mellitus-NIDDM BLANCA Hypertension/Hyperlipidemia Assessment and Plan Acute perforated Gastric ulcer posteroir antrum -Continue Protonix drip -Continue IV Zosyn -Continue IV fluids -Morphine as needed and fentanyl patch every 3 days -Dr. Alves Following -Continue NPO -Serial abdominal exams -NGT and angulo catheter post op -incentive spirometry -Monitor potassium level closely -TPN started -Physical therapy, OOB -Transfer to the floor today Diabetes mellitus-NIDDM -Accu-Chek with sliding scale insulin -Serum glucose 89 -Changed IVF to D5 03/13 NS BLANCA -BUN/creatinine 27/1.06, GFR 64 -Gentle IVF -Monitor in AM labs Hypertension/Hyperlipidemia -Continue home medications when appropriate DVT PPx SCDs, until cleared by Dr. Alves Full code LOS 2 to 3 days Discharge Plan: Home Plan to discharge in: 72 Hours <Suzanne Jerome - Last Filed: 05/19/24 14:49> I have personally seen and evaluated the patient. I have reviewed and agree with the history, physical exam findings, assessment, and plan of Dragan Jerome. [employer]. <Tabitha Nice - Last Filed: 05/19/24 20:18>
[2024-05-19] MEDS: AMINO ACIDS 5 %/DEXTROSE 20 % 2,000 ML, Lipids 20% 250 ML with MULTIVITAMINS INJ 10 ML IV SCH (17:00)
--- NOTE | 2024-05-19 19:19 | RAD REPORT ---
EXAMINATION: ONE VIEW CHEST XR CLINICAL INDICATION: Female, 48 years old.,PICC placement TECHNIQUE: Frontal chest projection is submitted. Examination is limited by patient positioning and t echnique. COMPARISON: 04/28/1959 FINDINGS: Right arm PICC with tip at the distal SVC level. Enteric tube courses below the lower margin. Central interstitial prominence and dependent airspace opacities and layering small to moderate effusions. No pneumothorax. The heart is normal in size. Mediastinal contours are unremarkable. IMPRESSION: Satisfactory right arm PICC positioning. Bilateral pleural effusions with underlying airspace opacification, suggesting central pulmonary noah a or fluid overload.
[2024-05-19] MEDS: Mupirocin NASAL 2 APPL/1 GM TUBE NAS SCH (20:21)
[2024-05-19] MEDS: D5 0.2 NS 500 ML IV SCH (22:10)
[2024-05-20 06:50] LABS: Absolute Basophils 0.1 K/uL (0-0.5); Absolute Lymphocytes (CBC) 1.7 K/uL (0.7-4.9); Absolute Monocytes 1.4 K/uL (0.1-1.3); Absolute Neutrophil 15.7 K/uL (1.8-8.0); Basophils % 0.4 % (0-1.3); Hematocrit 31.5 % (36.0-45.0); Hemoglobin 10.4 g/dL (12.0-15.0); Lymphocytes % 8.9 % (15.3-44.8); MCH 31.1 pg (27.0-35.0); MCHC 33.2 g/dL (32.0-36.0); MCV 93.7 fL (80-100); Monocytes % 7.5 % (3.3-12.3); Neutrophils % 83.2 % (41.7-73.7); Platelets 234 thou/uL (152-406); RBC Red Blood Cell Count 3.36 M/uL (3.86-4.86); Red Cell Distribution Width 13.9 % (12.1-15.2)
[2024-05-20 07:04] LABS: Albumin 2.4 g/dL (3.4-5.0); Albumin/Globulin Ratio 0.6 (1.1-1.8); Anion Gap 4.1 mEq/L (5.0-15.0); Bilirubin Total 0.3 mg/dL (0.2-1.0); Globulin 3.8 g/dL (2.3-3.5); Magnesium 2.1 mg/dL (1.6-2.4); Phosphorus 1.7 mg/dL (2.5-4.9); Potassium 4.1 mEq/L (3.5-5.1); Prealbumin 9.6 mg/dL (20-40); Protein, Total 6.2 g/dL (6.4-8.2)
[2024-05-20] MEDS: FUROSEMIDE 20 MG/ 2ML VIAL IV ONE (07:34)
[2024-05-20] MEDS: POTASSIUM PHOS IN 0.9 % NACL 15 MMOL/250 ML BAG IV ONE (09:09)
--- NOTE | 2024-05-20 10:32 | P.PN ---
Subjective Date of Service: 05/20/24 Chief Complaint: Acute perforated Gastric ulcer, peritonitis Subjective: No new changes, Improving, NPO, Doing well <Helder Galansilvinoalex - Last Filed: 05/20/24 16:29> Date of Service: 05/20/24 <Tabitha Nice - Last Filed: 05/20/24 17:29> Review of Systems General: Weakness Eyes: Unremarkable ENT: Unremarkable Respiratory: Cough, Dry Cardiovascular: Unremarkable Gastrointestinal: Abdominal Pain Genitourinary: Unremarkable Musculoskeletal: Pedal edema Integumentary: Unremarkable Neurological: Weakness, Other (Headache ) Lymphatics: Unremarkable <Helder Galanjasvir - Last Filed: 05/20/24 16:29> Physical Examination - Vital Signs Temperature: 99.0 F Blood Pressure: 137/67 Pulse: 99 Respirations: 18 Pulse Ox (%): 91 - Physical Exam General: Oriented x3, Cooperative HEENT: Atraumatic, PERRLA, EOMI Neck: Supple, JVD not distended Respiratory: Crackles/rales Cardiovascular: Regular rate/rhythm, Edema Gastrointestinal: Hypoactive, No ascites, Other (NGT in place. KASSANDRA drain intact with serosanguinous drainage), Distended Musculoskeletal: No tenderness Integumentary: No rashes Neurological: Normal speech, Normal strength at 5/5 x4 extr Lymphatics: No axilla or inguinal lymphadenopathy Urinary: Fierro catheter External genitalia: Deferred Rectal: Deferred - Studies Medications List Reviewed: Yes <Helder Galanjasvir - Last Filed: 05/20/24 16:29> Assessment And Plan - Current Problems (Diagnosis) (1) Perforated gastric ulcer Current Visit: Yes Status: Acute Plan: Acute perforated Gastric ulcer posterior antrum -Continue Protonix drip for now -Continue IV Zosyn -Morphine as needed and Fentanyl patch every 3 days -Dr. Alves consulted and following, monitor for updated recs -Continue NPO and NGT to LIS (continues to have output at this time) -Serial abdominal exams -Monitor KASSANDRA drain output and site -Fierro catheter post op -Continue Incentive Spirometry -Continue TPN and Monitor electrolytes -Physical therapy ordered, follow up for recs -Downgraded to floor from ICU on 05/20/24 Diabetes mellitus-NIDDM -Accu-Cheks q4h for now -Serum glucose 150 -Insulin sliding scale -IVF discontinued on 05/20, monitor closely BLANCA, resolved -Creatinine reviewed 0.94 -IVF completed -Monitor in AM labs Hypertension Hyperlipidemia -SBP stable (100-130's) -Continue to monitor BP per unit protocol -Continue home medications when appropriate Fluid overload Pleural Effusions -CXR on 05/19 with bilateral plural effusions/fluid overload -One time Lasix IV 20mg ordered (05/20) -Continue with Fierro for accurate I&O -IV fluids Discontinued DVT PPx: SCDs, until cleared by Dr. Alves GI Ppx: Protonix Gtt Code Status: Full code Discharge Plan: Home Plan to discharge in: 48 Hours - Code Status/Comfort Care Code Status Assessed: Yes (FULL CODE) Physician Review: Patient Assessed, Agree with Above Assessment and Plan Critical Care: No <Hansa Galan - Last Filed: 05/20/24 16:29> Physician Review: Patient Assessed, Agree with Above Assessment and Plan <Tabitha Nice - Last Filed: 05/20/24 17:29>
[2024-05-20] MEDS ORDERED: D5 0.2 NS 1,000 ML IV SCH (12:00)
[2024-05-20] MEDS: AMINO ACIDS 5 %/DEXTROSE 20 % 2,000 ML IV SCH (17:44)
[2024-05-21 06:27] LABS: Absolute Eosinophils 0.1 K/uL (0-0.5); Absolute Lymphocytes (CBC) 1.6 K/uL (0.7-4.9); Absolute Monocytes 1.2 K/uL (0.1-1.3); Absolute Neutrophil 11.8 K/uL (1.8-8.0); Basophils % 0.3 % (0-1.3); Eosinophils % 0.7 % (0-4.4); Hemoglobin 10.2 g/dL (12.0-15.0); Lymphocytes % 10.9 % (15.3-44.8); MCH 31.2 pg (27.0-35.0); MCV 94.5 fL (80-100); MPV 8.7 fL (7.6-11.3); Monocytes % 8.4 % (3.3-12.3); Neutrophils % 79.7 % (41.7-73.7); Nucleated Red Blood Cells % 0.1 % (0-0); Platelets 247 thou/uL (152-406); RBC Red Blood Cell Count 3.28 M/uL (3.86-4.86); Red Cell Distribution Width 13.6 % (12.1-15.2)
[2024-05-21 06:52] LABS: Albumin 2.2 g/dL (3.4-5.0); Albumin/Globulin Ratio 0.5 (1.1-1.8); Anion Gap 6.8 mEq/L (5.0-15.0); Bilirubin Total 0.4 mg/dL (0.2-1.0); Globulin 4.2 g/dL (2.3-3.5); Magnesium 1.9 mg/dL (1.6-2.4); Phosphorus 2.1 mg/dL (2.5-4.9); Potassium 3.8 mEq/L (3.5-5.1); Protein, Total 6.4 g/dL (6.4-8.2)
[2024-05-21] MEDS: POTASSIUM PHOS IN 0.9 % NACL 15 MMOL/250 ML BAG IV ONE (08:19)
--- NOTE | 2024-05-21 09:19 | P.PN ---
Subjective Date of Service: 05/21/24 Chief Complaint: Acute perforated Gastric ulcer, peritonitis Subjective: No new changes, C/O voiced (Patient requested ice chip and reports headache/pain with slight improvement) Review of Systems 10-point ROS is otherwise unremarkable General: Weakness Respiratory: SOB with Excertion Gastrointestinal: Abdominal Pain Physical Examination - Vital Signs Temperature: 98.7 F Blood Pressure: 130/72 Pulse: 97 Respirations: 18 Pulse Ox (%): 93 - Physical Exam General: Alert, In no apparent distress HEENT: Atraumatic, PERRLA, EOMI Neck: Supple, JVD not distended Respiratory: Clear to auscultation bilaterally, Normal air movement, Other (on 2L/NC ) Cardiovascular: Regular rate/rhythm, Normal S1 S2 Capillary refill: <2 Seconds Gastrointestinal: Hypoactive, Other (KASSANDRA drain and NGT intact ), Tenderness Musculoskeletal: No tenderness Integumentary: No rashes Neurological: Normal speech, Normal tone, Normal affect Lymphatics: No axilla or inguinal lymphadenopathy Urinary: Fierro catheter (clear yellow urine ) External genitalia: Deferred Rectal: Deferred - Studies Medications List Reviewed: Yes Assessment And Plan - Current Problems (Diagnosis) (1) Perforated gastric ulcer Current Visit: Yes Status: Acute Plan: Acute perforated Gastric ulcer posterior antrum -Continue Protonix drip for now -Continue IV Zosyn -Morphine as needed and Fentanyl patch every 3 days -Dr. Alves consulted and following, monitor for updated recs -Continue NPO and NGT to LIS until surgery clears for discontinuance. May have ice chips at this time -Serial abdominal exams -Monitor KASSANDRA drain output and site -Fierro catheter post op -Continue Incentive Spirometry -Continue TPN and Monitor electrolytes -Physical therapy ordered, follow up for recs -Downgraded to floor from ICU on 05/20/24 Diabetes mellitus-NIDDM -Accu-Cheks q4h for now -Serum glucose 150 -Insulin sliding scale -IVF discontinued on 05/20, monitor closely BLANCA, resolved -Creatinine reviewed 0.94 -IVF completed -Monitor in AM labs Hypertension Hyperlipidemia -SBP stable (100-130's) -Continue to monitor BP per unit protocol -Continue home medications when appropriate Fluid overload, improved Pleural Effusions -CXR on 05/19 with bilateral plural effusions/fluid overload -One time Lasix IV 20mg ordered (05/20) -Continue with Fierro for accurate I&O -IV fluids Discontinued -Continue to wean oxygen as tolerated DVT PPx: SCDs, until cleared by Dr. Alves GI Ppx: Protonix Gtt Code Status: Full code Qualifiers: Gastric ulcer chronicity: acute Qualified Code(s): K25.1 - Acute gastric ulcer with perforation Discharge Plan: Home Plan to discharge in: 72 Hours - Code Status/Comfort Care Code Status Assessed: Yes (FULL CODE) Physician Review: Patient Assessed, Agree with Above Assessment and Plan
--- NOTE | 2024-05-21 16:05 | P.PN ---
Subjective Date of Service: 05/21/24 Chief Complaint: Acute perforated Gastric ulcer, peritonitis Subjective: Tolerating diet, Ambulating, Improving Physical Examination - Vital Signs Temperature: 98.1 F Blood Pressure: 134/70 Pulse: 89 Respirations: 18 Pulse Ox (%): 94 - Physical Exam General: Alert, In no apparent distress, Oriented x3 Neck: Supple Cardiovascular: No edema Gastrointestinal: Soft and benign Musculoskeletal: No erythema, No tenderness, No warmth Integumentary: No rashes, No breakdown - Studies Medications List Reviewed: Yes Assessment And Plan - Plan cont NGT Clear in am but keep NGT clamped. REcconnect NGT yo suction of vomit OOB Incentive spirometry cont abx SCD Physician Review: Patient Assessed, Agree with Above Assessment and Plan
[2024-05-22 06:11] LABS: Absolute Basophils 0.1 K/uL (0-0.5); Absolute Eosinophils 0.2 K/uL (0-0.5); Absolute Lymphocytes (CBC) 1.7 K/uL (0.7-4.9); Absolute Monocytes 0.8 K/uL (0.1-1.3); Absolute Neutrophil 8.5 K/uL (1.8-8.0); Basophils % 0.6 % (0-1.3); Eosinophils % 1.9 % (0-4.4); Hematocrit 29.4 % (36.0-45.0); Hemoglobin 9.7 g/dL (12.0-15.0); Lymphocytes % 14.9 % (15.3-44.8); MCH 31.1 pg (27.0-35.0); MCHC 33.1 g/dL (32.0-36.0); Neutrophils % 75.6 % (41.7-73.7); Nucleated Red Blood Cells % 0.1 % (0-0); Platelets 235 thou/uL (152-406); RBC Red Blood Cell Count 3.13 M/uL (3.86-4.86); Red Cell Distribution Width 13.4 % (12.1-15.2)
[2024-05-22 06:28] LABS: Albumin/Globulin Ratio 0.5 (1.1-1.8); Anion Gap 7.7 mEq/L (5.0-15.0); Bilirubin Total 0.4 mg/dL (0.2-1.0); Globulin 4.3 g/dL (2.3-3.5); Magnesium 1.9 mg/dL (1.6-2.4); Phosphorus 2.7 mg/dL (2.5-4.9); Potassium 3.7 mEq/L (3.5-5.1); Protein, Total 6.3 g/dL (6.4-8.2)
[2024-05-22] MEDS ORDERED: SODIUM CHLORIDE 0.9% 10ML INJ IV PRN (07:48)
--- NOTE | 2024-05-22 08:08 | P.PN ---
Subjective Date of Service: 05/22/24 Chief Complaint: Acute perforated Gastric ulcer, peritonitis Subjective: No new changes, C/O voiced (Overall feeling better. Denies new c/o. Pain well controlled.) Review of Systems 10-point ROS is otherwise unremarkable Gastrointestinal: Abdominal Pain Physical Examination - Vital Signs Temperature: 98.1 F Blood Pressure: 141/66 Pulse: 96 Respirations: 18 Pulse Ox (%): 91 - Physical Exam General: Alert, In no apparent distress HEENT: Atraumatic, PERRLA, EOMI Neck: Supple, JVD not distended Respiratory: Normal air movement, Diminished Cardiovascular: Regular rate/rhythm, Normal S1 S2 Capillary refill: <2 Seconds Gastrointestinal: Hypoactive, Other (NGT intact and clamped.), Tenderness Musculoskeletal: No tenderness Integumentary: No rashes Neurological: Normal speech, Normal tone, Normal affect Lymphatics: No axilla or inguinal lymphadenopathy - Studies Medications List Reviewed: Yes Assessment And Plan - Current Problems (Diagnosis) (1) Perforated gastric ulcer Current Visit: Yes Status: Acute Plan: Acute perforated Gastric ulcer posterior antrum -Protonix gtt dc'd on 05/22 -Continue IV Zosyn -Hydromorphone q2h prn, wean as tolerated -Dr. Alves consulted and following -NGT clamped and clear liquid diet for now -Serial abdominal exams -Monitor KASSANDRA drain output and site -Fierro catheter post op -Continue Incentive Spirometry -Continue TPN and Monitor electrolytes -Physical therapy ordered, follow up for recs -Downgraded to floor from ICU on 05/20/24 Diabetes mellitus-NIDDM -Accu-Cheks q4h for now -A1C 6.6% -Insulin sliding scale -Clear liquid diet BLANCA, resolved -Creatinine reviewed 0.86 -IVF completed -Monitor in AM labs Hypertension Hyperlipidemia -SBP stable (100-130's) -Continue to monitor BP per unit protocol -Continue home medications when appropriate Fluid overload, improved Pleural Effusions -CXR on 05/19 with bilateral plural effusions/fluid overload -One time Lasix IV 20mg ordered (05/20) -Continue with Fierro for accurate I&O -IV fluids Discontinued -Continue to wean oxygen as tolerated DVT PPx: SCDs for now GI Ppx: Protonix IV Code Status: Full code Qualifiers: Gastric ulcer chronicity: acute Qualified Code(s): K25.1 - Acute gastric ulcer with perforation Discharge Plan: Home Plan to discharge in: 72 Hours Physician Review: Patient Assessed, Agree with Above Assessment and Plan
[2024-05-22] MEDS: PANTOPRAZOLE 40 MG INJ IVP SCH (09:00)
[2024-05-22] MEDS: KCL 20 MEQ/100 mL IVPB 20 MEQ/100 ML BAG IV SCH (09:36)
[2024-05-23 06:39] LABS: Absolute Eosinophils 0.3 K/uL (0-0.5); Absolute Lymphocytes (CBC) 1.4 K/uL (0.7-4.9); Absolute Monocytes 0.9 K/uL (0.1-1.3); Basophils % 0.5 % (0-1.3); Eosinophils % 3.1 % (0-4.4); Hematocrit 29.1 % (36.0-45.0); Hemoglobin 9.9 g/dL (12.0-15.0); Lymphocytes % 14.9 % (15.3-44.8); MCH 31.4 pg (27.0-35.0); MCHC 33.9 g/dL (32.0-36.0); MCV 92.8 fL (80-100); MPV 8.5 fL (7.6-11.3); Monocytes % 9.7 % (3.3-12.3); Neutrophils % 71.8 % (41.7-73.7); Nucleated Red Blood Cells % 0.3 % (0-0); Platelets 246 thou/uL (152-406); RBC Red Blood Cell Count 3.14 M/uL (3.86-4.86); Red Cell Distribution Width 13.6 % (12.1-15.2)
--- NOTE | 2024-05-23 06:50 | P.PN ---
Subjective Date of Service: 05/23/24 Chief Complaint: Acute perforated Gastric ulcer, peritonitis Review of Systems 10-point ROS is otherwise unremarkable Physical Examination - Vital Signs Temperature: 98.6 F Blood Pressure: 114/73 Pulse: 87 Respirations: 16 Pulse Ox (%): 94 - Physical Exam General: Alert, In no apparent distress HEENT: Atraumatic, Normocephalic Neck: Supple, No Thyromegaly Respiratory: Clear to auscultation bilaterally, Normal air movement Cardiovascular: Regular rate/rhythm, Normal S1 S2 Gastrointestinal: Distended, Tenderness Musculoskeletal: No clubbing, No swelling Integumentary: No rashes Neurological: Normal speech, Normal strength at 5/5 x4 extr - Studies Medications List Reviewed: Yes Assessment And Plan - Plan Acute perforated Gastric ulcer posterior antrum -Protonix gtt dc'd on 05/22 -Continue IV Zosyn -Hydromorphone q2h prn, wean as tolerated -Dr. Alves consulted and following -NGT clamped and clear liquid diet for now -Serial abdominal exams -Monitor KASSANDRA drain output and site -Fierro catheter post op -Continue Incentive Spirometry -Continue TPN and Monitor electrolytes -Physical therapy ordered, follow up for recs -Downgraded to floor from ICU on 05/20/24 Diabetes mellitus-NIDDM -Accu-Cheks q4h for now -A1C 6.6% -Insulin sliding scale -Clear liquid diet BLANCA, resolved -Creatinine reviewed 0.86 -IVF completed -Monitor in AM labs Hypertension Hyperlipidemia -SBP stable (100-130's) -Continue to monitor BP per unit protocol -Continue home medications when appropriate Fluid overload, improved Pleural Effusions -CXR on 05/19 with bilateral plural effusions/fluid overload -Continue with Fierro for accurate I&O -IV fluids Discontinued -Continue to wean oxygen as tolerated DVT PPx: SCDs for now GI Ppx: Protonix IV Code Status: Full code Advise ambulation Appreciate help from surgery Monitor closely Awaiting further clinical improvement Physician Review: Patient Assessed, Agree with Above Assessment and Plan Time Spent Managing PTS Care (In Minutes): 48
[2024-05-23 07:04] LABS: Albumin/Globulin Ratio 0.4 (1.1-1.8); Anion Gap 6.4 mEq/L (5.0-15.0); Bilirubin Total 0.6 mg/dL (0.2-1.0); Globulin 4.5 g/dL (2.3-3.5); Magnesium 1.8 mg/dL (1.6-2.4); Phosphorus 3.2 mg/dL (2.5-4.9); Potassium 3.4 mEq/L (3.5-5.1); Protein, Total 6.5 g/dL (6.4-8.2)
[2024-05-23] MEDS: KCL 20 MEQ/100 mL IVPB 20 MEQ/100 ML BAG IV SCH (11:26)
[2024-05-23] MEDS: MAGNESIUM SULFATE 1 gm IVPB 1 GM/100 ML BAG IV ONE (11:26)
--- NOTE | 2024-05-24 00:50 | P.PN ---
Subjective Date of Service: 05/24/24 Physical Examination - Vital Signs Temperature: 98.6 F Blood Pressure: 114/73 Pulse: 87 Respirations: 18 Pulse Ox (%): 97 - Studies Medications List Reviewed: Yes Assessment & Plan - Problems (Diagnosis) (1) Metabolic syndrome Current Visit: Yes Status: Acute (2) Pulmonary edema Current Visit: Yes Status: Acute (3) Perforated gastric ulcer Current Visit: Yes Status: Acute Qualifiers: Gastric ulcer chronicity: acute Qualified Code(s): K25.1 - Acute gastric ulcer with perforation Discharge Plan: Home Plan to discharge in: Greater than 2 days - Advance Directives Does patient have a Living Will: No Does patient have a Durable POA for Healthcare: No - Code Status/Comfort Care Code Status Assessed: Yes Code Status: Full Code Physician Review: Patient Assessed, Agree with Above Assessment and Plan Critical Care: No Time Spent Managing PTS Care (In Minutes): 35
[2024-05-24 06:26] LABS: Absolute Basophils 0.1 K/uL (0-0.5); Absolute Eosinophils 0.3 K/uL (0-0.5); Absolute Lymphocytes (CBC) 1.4 K/uL (0.7-4.9); Absolute Monocytes 0.9 K/uL (0.1-1.3); Absolute Neutrophil 7.2 K/uL (1.8-8.0); Basophils % 0.7 % (0-1.3); Eosinophils % 2.9 % (0-4.4); Hematocrit 30.2 % (36.0-45.0); Hemoglobin 10.1 g/dL (12.0-15.0); Lymphocytes % 14.1 % (15.3-44.8); MCH 30.8 pg (27.0-35.0); MCHC 33.5 g/dL (32.0-36.0); MCV 92.2 fL (80-100); Monocytes % 8.9 % (3.3-12.3); Neutrophils % 73.4 % (41.7-73.7); Nucleated Red Blood Cells % 0.3 % (0-0); Platelets 241 thou/uL (152-406); RBC Red Blood Cell Count 3.28 M/uL (3.86-4.86); Red Cell Distribution Width 13.4 % (12.1-15.2)
[2024-05-24 06:38] LABS: Albumin 1.9 g/dL (3.4-5.0); Albumin/Globulin Ratio 0.4 (1.1-1.8); Anion Gap 6.3 mEq/L (5.0-15.0); Bilirubin Total 0.6 mg/dL (0.2-1.0); Globulin 4.5 g/dL (2.3-3.5); Magnesium 2.1 mg/dL (1.6-2.4); Potassium 3.3 mEq/L (3.5-5.1); Protein, Total 6.4 g/dL (6.4-8.2)
[2024-05-24] MEDS ORDERED: POTASSIUM CL 40 MEQ in NA CHLORIDE 0.9% 500 ML IV SCH (09:00)
[2024-05-24] MEDS: KCL 20 MEQ/100 mL IVPB 100 ML IV SCH (09:07)
[2024-05-24] MEDS: ALBUMIN HUMAN 25% 100 ML IV ONE (11:14)
--- NOTE | 2024-05-24 13:54 | P.PN ---
Subjective Date of Service: 05/24/24 Chief Complaint: Acute perforated Gastric ulcer, peritonitis Subjective: Tolerating diet, Ambulating, Improving Review of Systems Respiratory: Unremarkable Cardiovascular: Unremarkable Gastrointestinal: As per HPI, Unremarkable Genitourinary: Unremarkable Neurological: Unremarkable Physical Examination - Vital Signs Temperature: 99.6 F Blood Pressure: 124/69 Pulse: 93 Respirations: 18 Pulse Ox (%): 97 - Physical Exam General: Alert, In no apparent distress, Oriented x3, Cooperative HEENT: PERRLA, EOMI Neck: Supple Respiratory: Normal air movement Cardiovascular: No edema Gastrointestinal: Normal bowel sounds, Soft and benign Musculoskeletal: No erythema, No tenderness Integumentary: No rashes, No breakdown Neurological: Normal speech - Studies Medications List Reviewed: Yes Assessment And Plan - Plan D/C NGT advance diet to soft as tolerated. OOB to ambulate Incentive spirometry cont abx SCD Physician Review: Patient Assessed, Agree with Above Assessment and Plan
[2024-05-24] MEDS: HYDROMORPHONE HCL 0.5 MG/0.5 ML INJ IV PRN (18:05)
[2024-05-24] MEDS: HYDROCODONE/APAP 7.5/325 MG TAB PO PRN (21:07)
[2024-05-25 07:22] LABS: Absolute Basophils 0.1 K/uL (0-0.5); Absolute Eosinophils 0.3 K/uL (0-0.5); Absolute Lymphocytes (CBC) 1.8 K/uL (0.7-4.9); Absolute Neutrophil 8.4 K/uL (1.8-8.0); Basophils % 0.6 % (0-1.3); Eosinophils % 2.9 % (0-4.4); Lymphocytes % 15.8 % (15.3-44.8); MCH 30.5 pg (27.0-35.0); MCHC 33.5 g/dL (32.0-36.0); MCV 91.3 fL (80-100); MPV 9.4 fL (7.6-11.3); Monocytes % 8.5 % (3.3-12.3); Neutrophils % 72.2 % (41.7-73.7); Nucleated Red Blood Cells % 0.1 % (0-0); Platelets 238 thou/uL (152-406); RBC Red Blood Cell Count 3.29 M/uL (3.86-4.86); Red Cell Distribution Width 13.6 % (12.1-15.2)
[2024-05-25 07:35] LABS: Albumin 2.1 g/dL (3.4-5.0); Albumin/Globulin Ratio 0.5 (1.1-1.8); Anion Gap 7.5 mEq/L (5.0-15.0); Bilirubin Total 0.4 mg/dL (0.2-1.0); Globulin 4.4 g/dL (2.3-3.5); Magnesium 2.2 mg/dL (1.6-2.4); Phosphorus 2.8 mg/dL (2.5-4.9); Potassium 3.5 mEq/L (3.5-5.1); Protein, Total 6.5 g/dL (6.4-8.2)
[2024-05-25] MEDS: POTASSIUM CL SA 10 MEQ TAB PO ONE (09:49)
--- NOTE | 2024-05-25 10:43 | CON ---
Date of Consultation: 05/19/2024 Reason For Consultation: Perforated ulcer, status post repair. History Of Present Illness: The patient is a 48-year-old white female with history of diabetes, hyperlipidemia, kidney stones, lithotripsy, renal stents, hysterectomy, and cholecystectomy. The patient presented to hospital with acute midepigastric pain, nausea, vomiting, fevers, chills, diaphoresis. The patient was found to have perforated gastric ulcer with pneumoperitoneum and ulcer was perforated in the posterior aspect at the end of the antrum. With emergent surgery required, patient is now postop day 1, doing well on floor except she does complain of some pain and needs pain medicines now. Past Medical History: Significant for diabetes; hypertension; hyperlipidemia; kidney stones, status post lithotripsy; renal stents; hysterectomy; laparoscopic cholecystectomy. Medications: Include Augmentin on admission. Allergies: NONE. Social History: Positive for tobacco, alcohol. She has kids and grandkids. Her daughter and grandchild are with her currently in the room. Review of Systems: The patient has midepigastric pain, nausea, vomiting, diaphoresis, fevers, chills, sweats. She denies any melena, hematochezia, hematemesis, coffee- grounds emesis, chest pain, shortness of breath, seizure, syncope, muscle aches, joint aches, backaches, depression, anxiety. Physical Examination: Vital Signs: The patient is 5 feet 4 inches, 247 pounds, BMI of 42.6 kg/sq m. She has a temperature of 98.4 degrees Fahrenheit, pulse 101, respirations 20, blood pressure 112/59, O2 saturation 100% on room air. General: She is a well-nourished, well-developed obese female, lying in bed, in mild distress. Stating she is having some pain and has pain medications status post perforated gastric ulcer repair. HEENT: Normocephalic, atraumatic. Anicteric. Pupils equal, round, and reactive to light. Extraocular movements are intact. Oropharynx clear. Neck: Supple. No masses. Respirations: Clear to auscultation bilaterally. Cardiac: Regular rate and rhythm. No gallop or rubs. Abdomen: Postop pain with guarding. Obese. Extremities: No clubbing, cyanosis, or edema. 2+ pulses. Neuro: Alert and oriented x3. Grossly nonfocal. 5/5 motor sensation to light touch. Laboratory Data: The patient has a white count of 18.6, up from 17.4 yesterday; hemoglobin of 11.9; hematocrit 36.1; MCV of 95; platelet count of 265; polys of 83%; lymphocytes 10%; monocytes 7%. She has sodium 145, potassium 4.2, chloride 114, bicarb 27, BUN of 27, creatinine of 1.1, glucose 89, calcium 8.3. Phosphorus 3.3, magnesium 2.0. Total bilirubin 0.4, AST of 82, ALT of 82, alkaline phosphatase 65, total protein 6.2, albumin 2.8. UA: On the day of visit, 2+ blood, trace protein, otherwise negative. CT abdomen and pelvis reveals mild fatty liver, prominent wall thickening and edema along the gastric antrum and tracking also along the gastric body. edema along the greater omentum at the level of distal body and edema along the adventitia of the antrum at the level of the gas. Mild perihepatic ascites. Findings suggesting perforated peptic ulcer with wall edema of the distal stomach with free air tracking from the lesser curvature at the level of the antrum towards the hepatic hilum. Findings suggest the site of the ulcer may be along the antrum and lesser curvature. Mild perihepatic free fluid with mild fatty liver. Impression: 1. Perforated ulcer in the posterior antrum, status post emergent surgery yesterday on May 18 successfully performed. The patient is now postop on the floor on the fourth floor. 2. Peritonitis with sepsis secondary to perforated ulcer, on IV antibiotics. 3. History of diabetes. 4. Hypertension. 5. Hyperlipidemia. 6. Kidney stones, lithotripsy, renal stents. 7. Hysterectomy. 8. Laparoscopic cholecystectomy. Recommendations: 1. Continue IV Protonix 40 mg IV b.i.d. 2. Check AM gastrin level. Of note, this level was negative, less than 15 upon checking. 3. GI Clinic followup. 4. Diet as per surgery. JACKY/SHILPAL Voice ID: [id number] Report ID: [id number] [facility]
[2024-05-25] MEDS: ENSURE MAX PROTEIN 330 ML LIQUID PO SCH (21:00)
[2024-05-26 08:38] VITALS: O2SAT 94
[2024-05-26 16:29] VITALS: TEMP 98.2
[2024-05-26 16:32] VITALS: BP 135/68
== END 2024-05-26 17:00 | disposition home or self-care (01) | DRG 326 ==
LOC: ER 05:13 → ERHOLD 09:11 → 2ND 09:56 → 3RD-ICU 10:57 → 4TH 05-19 18:29
PROVIDERS: ADMIT Family Medicine; ATTEND Hospitalist
PROC: 0DQ60ZZ Repair Stomach, Open Approach (ICD-10-PCS; principal; 2024-05-18 09:30)
PROC: 02HV33Z Insertion of Infusion Device into Superior Vena Cava, Percutaneous Approach (ICD-10-PCS; 2024-05-19)
DX: K25.1 Acute gastric ulcer with perforation (principal); J81.0 Acute pulmonary edema; K65.9 Peritonitis, unspecified; N17.9 Acute kidney failure, unspecified; L89.322 Pressure ulcer of left buttock, stage 2; E11.9 Type 2 diabetes mellitus without complications; E78.5 Hyperlipidemia, unspecified; E87.70 Fluid overload, unspecified; F41.8 Other specified anxiety disorders; E88.810 Metabolic syndrome
CPT/HCPCS: 36415; 36569; 71045; 74018; 74177; 80053; 81001; 82941; 82947; 83036; 83690; 83735; 84100; 84134; 84478; 84484; 85025; 87086; 87088; 93005; 94010; 97110; 97116; 97161; 97530; 99285; A4314; J1100; J1171; J1940; J2003; J2250; J2371; J2405; J2470; J2543; J2704; J3010; J3475; J3480; J7030; J7050; J7799; P9047; Q9967